=== PATIENT | female | born 1935 | race Two or more races ===

== ENCOUNTER → 2024-05-05 | Outpatient (CLI) | payer MEDICARE, SELFPAY ==
[2024-05-05 21:47] LABS: Absolute Lymphocyte Count 1.67 X10^3/uL (0.83-4.51); Absolute Neutrophil Count 4.1 X10^3/uL (2.0-7.7); Basophil# 0.02 X10^3/uL; Basophil% 0.3 % (0-1); Eosinophils% 1.5 % (0-5); Hematocrit 34.9 % (37-47); Hemoglobin 10.8 g/dL (12.0-15.0); Lymphocyte # 1.67 X10^3/ul (0.83-4.51); Lymphocyte % 25.6 % (19-41); Mean Corp Hgb Conc 30.9 g/dL (32-36); Mean Corpuscular Hgb 26.3 pg (27.0-32.0); Mean Corpuscular Volume 85.1 fL (81-99); Mean Platelet Vol. 12.3 fl (6.2-12.0); Monocyte% 9.2 % (0-10); NRBC Flagged by Analyzer 0 % (0-5); Neutrophil # 4.12 X10^3/uL (2.7-7.7); Neutrophil % 63.2 % (47-70); Platelet Count 205 K/mm3 (150-450); RBC Distribution Width CV 15.5 % (11.6-14.6); RBC Distribution Width SD 47.8 fl (35.1-43.9); White Blood Count 6.5 K/mm3 (4.4-11.0)
[2024-05-05 22:11] LABS: ALB/GLOB Ratio 0.9 RATIO (0.9-2.4); AST(SGOT) 12 U/L (15-37); Alanine Aminotransfer ALT/SGPT 15 U/L (13-56); Albumin, Serum 3.5 g/dL (3.2-5.0); Alkaline Phosphatase 105 U/L (45-117); Anion Gap 9 (5-15); BUN 19 mg/dL (7-18); BUN/Creat Ratio 13.5 RATIO (10-20); Chloride 104 mmol/L (98-107); Cholesterol 113 mg/dL (200); Creatinine, Serum 1.41 mg/dL (0.55-1.02); EST Glomerular Filtration Rate 37 mL/min (>60); Est Glom Filt Rate - Afr Amer 45 mL/min (>60); Globulin 4.1 g/dL (2.2-4.2); Glucose 203 mg/dL (74-106); High Density Lipoprotein 39 mg/dL; Potassium 3.5 mmol/L (3.5-5.1); Protein, Total 7.6 g/dL (6.4-8.2); Sodium Level 138 mmol/L (136-145); Thyroid Stim Hormone (TSH) 2.27 uIU/mL (0.358-3.74); Triglycerides 122 mg/dL; Very Low Density Lipoprotein 24 mg/dL (5-40)
== END | disposition home or self-care (01) ==
PROVIDERS: Visit Provider Nurse Practitioner
DX: E11.59 Type 2 diabetes mellitus with other circulatory complications (principal); I70.209 Unspecified atherosclerosis of native arteries of extremities, unspecified extremity; I10 Essential (primary) hypertension; R13.10 Dysphagia, unspecified
CPT/HCPCS: 80053; 80061; 84443; 85025

== ENCOUNTER → 2024-09-08 | Outpatient (CLI) | payer MEDICARE, SELFPAY ==
[2024-09-08 21:05] LABS: Absolute Lymphocyte Count 2.36 X10^3/uL (0.83-4.51); Absolute Neutrophil Count 6.3 X10^3/uL (2.0-7.7); Basophil# 0.03 X10^3/uL; Basophil% 0.3 % (0-1); Eosinophil# 0.34 X10^3/uL; Eosinophils% 3.4 % (0-5); Hematocrit 38.8 % (37-47); Hemoglobin 11.8 g/dL (12.0-15.0); Lymphocyte # 2.36 X10^3/ul (0.83-4.51); Lymphocyte % 23.8 % (19-41); Mean Corp Hgb Conc 30.4 g/dL (32-36); Mean Corpuscular Hgb 26.6 pg (27.0-32.0); Mean Corpuscular Volume 87.4 fL (81-99); Monocyte% 8.1 % (0-10); NRBC Flagged by Analyzer 0 % (0-5); Neutrophil # 6.34 X10^3/uL (2.7-7.7); Neutrophil % 64.1 % (47-70); Platelet Count 225 K/mm3 (150-450); RBC Distribution Width CV 17.1 % (11.6-14.6); RBC Distribution Width SD 54.2 fl (35.1-43.9); Red Blood Count 4.44 M/mm3 (4.2-5.4); White Blood Count 9.9 K/mm3 (4.4-11.0)
[2024-09-08 21:18] LABS: ALB/GLOB Ratio 0.9 RATIO (0.9-2.4); AST(SGOT) 14 U/L (15-37); Alanine Aminotransfer ALT/SGPT 20 U/L (13-56); Albumin, Serum 3.7 g/dL (3.2-5.0); Alkaline Phosphatase 127 U/L (45-117); Anion Gap 10 (5-15); BUN 24 mg/dL (7-18); Calcium,Total 8.9 mg/dL (8.5-10.1); Chloride 101 mmol/L (98-107); Cholesterol 117 mg/dL (200); Creatinine, Serum 1.09 mg/dL (0.55-1.02); EST Glomerular Filtration Rate 50 mL/min (>60); Est Glom Filt Rate - Afr Amer 61 mL/min (>60); Glucose 140 mg/dL (74-106); High Density Lipoprotein 39 mg/dL; Potassium 4.4 mmol/L (3.5-5.1); Protein, Total 7.7 g/dL (6.4-8.2); Sodium Level 139 mmol/L (136-145); Triglycerides 202 mg/dL; Very Low Density Lipoprotein 40 mg/dL (5-40)
== END | disposition home or self-care (01) ==
PROVIDERS: Referring Provider Nurse Practitioner; Visit Provider Nurse Practitioner
DX: D64.9 Anemia, unspecified (principal); E11.65 Type 2 diabetes mellitus with hyperglycemia; E11.59 Type 2 diabetes mellitus with other circulatory complications; E11.69 Type 2 diabetes mellitus with other specified complication; I70.209 Unspecified atherosclerosis of native arteries of extremities, unspecified extremity; E78.5 Hyperlipidemia, unspecified
CPT/HCPCS: 80053; 80061; 85025

== ENCOUNTER 2025-02-24 10:00 | Outpatient (RCR) | payer MEDICARE, SELFPAY ==
[2025-02-17 08:49] VITALS: BP 123/66; PULSE 89; RESP 18; TEMP 35.9; BMI 23.3
--- NOTE | 2025-02-17 12:10 | PN.PCM_ITS ---
History of Present Illness Date of Service: 02/17/25 Chief Complaint: Follow-up left medial ankle ulcer since September History of Wound: 89-year-old white female that was in the hospital over a month ago and had developed some sores on her legs and not taking care of. Patient has edema of lower extremities and came to us with eschar and slough pain on her lower extremities over the Achilles of the right and left and lateral circumferential wounds. We then referred to the wound center to be seen. Progress of Wound: Patient is diabetic pretty well-controlled but her right heel has an exposed tendon left heel has some open area on her tendon. Lower extremities are open wounds with some slots of slough. The edema and wounds have improved since last seen in the office approximately 2 weeks ago. She does have home health that is helping at least twice a week with dressing changes Subjective Subjective Son is with his mother and he complains that she has a lot of pain and has not olive for pain and Tylenol is not holding her. He also states she does not like to sit with her legs elevated and is very anxious and does not sleep well at night. Objective Data Objective Data Lower extremity wounds are open with slough and some have eschar that was debrided out with sharps and forceps. She tolerated fair we will try Santyl in her wound beds to help loosen up the slough and the eschar to do better coverage we will also order some EpiFix for the exposed Achilles tendon. Patient needs to be checked for urinary tract infection and home health so they would straight catheter for a specimen. Measurements compared to what I saw in the office are much improved and the swelling is much improved with the Isaiah wrap's on the lower legs. We will now switch her over to double layer Tubigrip's that will be easier for the son and the home health care to put on. Vital Signs: Vital Signs Temp Pulse Resp BP 96.6 F L 89 18 123/66 H 02/17/25 08:49 02/17/25 08:49 02/17/25 08:49 02/17/25 08:49 Weight: 140 lb Body Mass Index (BMI) 23.3 Physical Exam Const oriented x3 General Appearance: cooperative Exam Limitations: no limitations HEENT normocephalic Eyes General Eye: normal appearance of both eyes Neck General: normal visual inspection Resp normal respiratory effort Effort and Inspection: able to speak in complete sentences Auscultation: clear to auscultation bilaterally Cardio regular rate and regular rhythm Palpation: normal PMI Rate: regular rate Rhythm: regular rhythm GI Palpation: soft and no hepatosplenomegaly Extremity General Extremity: normal exam except as noted, edema bilateral and other findings Other Details: Swelling lower extremities with open wounds bilaterally Achilles open on the right exposed Neuro oriented x3 Psych Appearance: grossly normal Speech: normal speech Thought Content: normal thought content Judgement: judgement good Debridement Note Debridement Note Wound debrided: Right lower leg cluster Laterality: Right Type of Debridement: Excisional debridement Anesthesia Used: 5% Lidocaine Gel Depth: in the subcutaneous layer Percentage of wound debrided: 100 Instrument Used: 5mm curette Tissue Removed: Slough and some fibrin Severity: Fat Layer Exposed Amount of bleeding with debridement: Mild Bleeding Controlled with: Compression and gauze Patient tolerated procedure: Patient tolerated procedure well Post-Debridement Measurements and Additional Note: Post-Debridement Measurements/Treatment WC - Nurse 1 - General Ulcer Assessment Start: 02/17/25 08:49 Freq: Status: Active Protocol: IZZY Activity Type Activity Date Activity User E-sign Co-sign Detail Recorded Client Recorded Date Recorded By Document 02/17/25 08:49 RB [id number] 02/17/25 09:14 RB Edit Result 02/17/25 08:49 RB (1) [id number] 02/17/25 09:18 RB (1) Right - Posterior Tibial Palpable => No - Dorsalis Pedis Palpable => No - Extremity Color => Pale - Hair Growth on Legs => No - Hair Growth on Toes => No - Temperature of Extremity => Cool - Capillary Refill => Greater than 3 => Seconds - Dependent Rubor => No - Blanched when Elevated => No - Lipodermatosclerosis => No - Other Deformity => No - Prior Foot Ulcer => No - Charcot Joint => No - Prior Amputation => No - Thick => Yes - Discolored => Yes - Deformed => No - Improper Length & Hygeine => No Left - Posterior Tibial Palpable => No - Dorsalis Pedis Palpable => No - Extremity Color => Pale - Hair Growth on Legs => No - Hair Growth on Toes => No - Temperature of Extremity => Cool - Capillary Refill => Greater than 3 => Seconds - Dependent Rubor => No - Blanched when Elevated => No - Lipodermatosclerosis => No - Other Deformity => No - Prior Foot Ulcer => No - Charcot Joint => No - Prior Amputation => No - Thick => Yes - Discolored => Yes - Deformed => No - Improper Length & Hygeine => No Feet - Top Side and Bottom => <Entered> (a) Preferred language => Sammarinese Asset Specialist Required => No Able to Read => Yes Able to Write => Yes Communication Tools => None Caregiver Communication Skills => No Impairment Impairment Right Hearing Abillity => Hard of Hearing Left Hearing Abillity => Hard of Hearing Visual Assistive Devices => Glasses Preferences => Verbal,Written, => Demonstration Barriers to Learning => None Readiness To Learn => Poor Willingness to Engage in Self Management => Low Activies Readiness to Engage in Self Management => Low Activities Anxiety Level => Calm Cooperation => Uncooperative Perception => Confused Interest in Health Problem => Uninterested Education Importance => Denies Need Does Patient Smoke tobacco or other => No substances Smoking Status => Never smoker Is Patient Diabetic => Yes Recent Decline in Ability to Perform => Ambulation,Bathing => ,Lower Body => Dressing,Toileting => ,Transferring, => Upper Body => Dressing Assistive Device With Patient => Yes Cultural/Episcopalian Needs that may affect => No Treatment Plan Would you allow our hospital motor vehicle escort driver to => No meet you for the purpose of spiritual/ emotional support? Aircraft Electrical Systems Specialist to contact place of anabaptist => No *Welcome to the Wound Center - Person Taught => Patient,Family - Teaching Method => Discussion - Response to teaching => Verbalize => Understanding 02/17/25 08:49 - Today's Visit Information Type of service Initial Visit Arrival Mode Wheelchair Transfer Assistance Manual Patient Identification Verified (Name & Yes ) Patient Requires Transmission-Based No Precautions Height and Weight Height 5 ft 5 in Weight 140 lb Weight in Pounds 140.0 lbs Body Mass Index (BMI) 23.3 BMI Classification Normal Vital Signs Temperature (97.8 F-99.1 F) 96.6 F L Temperature Source Temporal Pulse Rate (60-100) 89 Pulse Location Monitor Respiratory Rate (12-18) 18 Respiratory rate source Observation Blood Pressure (90/60-120/80) 123/66 H Blood Pressure Mean (mm Hg) 85 Source Monitor Position Semi-Fowlers Blood Pressure Location Left Arm History Since Last Visit- (Skip if this is Patient's initial visit) Left Footwear No Footwear Right Footwear No Footwear Pain Scale: 0-10 Numeric Is Patient Pain Free? No BLE -Description Aching -Intensity 6 -Duration (hours) Acute -Pain Behavior Withdrawal from Touch -Pain Aggravating Factors Changing Position -Alleviating Factors/Interventions Medication -Effectiveness of Alleviating Factor/ Moderately Intervention effective Lower Extremity Assessment/ Foot Assessment/ Toe Nail Assessment Right -Posterior Tibial Palpable No -Dorsalis Pedis Palpable No -Extremity Color Pale -Hair Growth on Legs No -Hair Growth on Toes No -Temperature of Extremity Cool -Capillary Refill Greater than 3 Seconds -Dependent Rubor No -Blanched when Elevated No -Lipodermatosclerosis No -Other Deformity No -Prior Foot Ulcer No -Charcot Joint No -Prior Amputation No -Thick Yes -Discolored Yes -Deformed No -Improper Length & Hygeine No Left -Posterior Tibial Palpable No -Dorsalis Pedis Palpable No -Extremity Color Pale -Hair Growth on Legs No -Hair Growth on Toes No -Temperature of Extremity Cool -Capillary Refill Greater than 3 Seconds -Dependent Rubor No -Blanched when Elevated No -Lipodermatosclerosis No -Other Deformity No -Prior Foot Ulcer No -Charcot Joint No -Prior Amputation No -Thick Yes -Discolored Yes -Deformed No -Improper Length & Hygeine No Neuropathy Assessment Feet - Top Side and Bottom <Entered> (a) Communication Assessment Preferred language Sammarinese Asset Specialist Required No Able to Read Yes Able to Write Yes Communication Tools None Caregiver Communication Skills No Impairment Impairment Right Hearing Abillity Hard of Hearing Left Hearing Abillity Hard of Hearing Visual Assistive Devices Glasses Teaching Assessment Preferences Verbal,Written, Demonstration Barriers to Learning None Readiness To Learn Poor Willingness to Engage in Self Management Low Activies Readiness to Engage in Self Management Low Activities Anxiety Level Calm Cooperation Uncooperative Perception Confused Interest in Health Problem Uninterested Education Importance Denies Need Does Patient Smoke tobacco or other No substances Smoking Status Never smoker Is Patient Diabetic Yes Functional Assessment Recent Decline in Ability to Perform Ambulation, Bathing,Lower Body Dressing, Toileting, Transferring, Upper Body Dressing Assistive Device With Patient Yes Culture/Episcopalian/Aircraft Electrical Systems Specialist Cultural/Episcopalian Needs that may affect No Treatment Plan Would you allow our hospital motor vehicle escort driver to No meet you for the purpose of spiritual/ emotional support? Aircraft Electrical Systems Specialist to contact place of anabaptist No Teaching: Wound Center *Welcome to the Wound Center -Person Taught Patient,Family -Teaching Method Discussion -Response to teaching Verbalize Understanding (a) 1 - + throughout WC - Nurse 1 - General Ulcer Measurement Start: 02/17/25 08:49 Freq: Status: Active Protocol: Activity Type Activity Date Activity User E-sign Co-sign Detail Recorded Client Recorded Date Recorded By Document 02/17/25 08:49 RB [id number] 02/17/25 09:14 RB 02/17/25 08:49 Wound Center Nurse 1 7. L anterior ankle -Combined with other wound No -Current Size (cm) - Length 1.5 -Current Size (cm) - Width 1.7 -Current Size (cm) - Depth 0.2 -Total Square Cm 2.55 -Photo Taken Yes -Tunneling No -Undermining/Tunneling No -Circular Undermining No -Exudate Amt Large -Exudate Type Serosanguineous -Wound Margin Distinct, Outline Attached -Granulation Amt Medium (34-66%) -Granulation Quality [place] -Slough/Fibrin Yes -Necrosis Amt Medium (34-66%) -Necrotic Tissue Type Adherent Slough -Structure Exposed N/A -Texture (Nuvia-wound Skin Appearance) Assessed -Moisture (Nuvia-wound Skin Appearance) Assessed, Maceration, Weeping -Color (Nuvia-wound Skin Appearance) Assessed -Temperature (Nuvia-wound Skin No Abnormality Appearance) (Pt Warm) -Tenderness on Palpation (Nuvia-wound No Skin Appearance) -Ulcer Cleansing Wound Cleanser -Foul Odor after Cleansing No -Anesthetic Used 4% Lidocaine Solution 6. L achilles CLUSTER -Combined with other wound No -Current Size (cm) - Length 0.7 -Current Size (cm) - Width 2.5 -Current Size (cm) - Depth 0.2 -Total Square Cm 1.75 -Photo Taken Yes -Tunneling No -Undermining/Tunneling No -Circular Undermining No -Exudate Amt Large -Exudate Type Serosanguineous -Wound Margin Distinct, Outline Attached -Granulation Amt Medium (34-66%) -Granulation Quality [place] -Slough/Fibrin Yes -Necrosis Amt Medium (34-66%) -Necrotic Tissue Type Adherent Slough -Structure Exposed N/A -Texture (Nuvia-wound Skin Appearance) Assessed -Moisture (Nuvia-wound Skin Appearance) Maceration, Weeping -Color (Nuvia-wound Skin Appearance) Assessed -Temperature (Nuvia-wound Skin No Abnormality Appearance) (Pt Warm) -Tenderness on Palpation (Nuvia-wound No Skin Appearance) -Ulcer Cleansing Wound Cleanser -Foul Odor after Cleansing No -Anesthetic Used 4% Lidocaine Solution 5. L dorsal foot -Combined with other wound No -Current Size (cm) - Length 2 -Current Size (cm) - Width 1.7 -Current Size (cm) - Depth 0.1 -Total Square Cm 3.4 -Photo Taken Yes -Tunneling No -Undermining/Tunneling No -Circular Undermining No -Exudate Amt Large -Exudate Type Serosanguineous -Wound Margin Distinct, Outline Attached -Granulation Amt Medium (34-66%) -Granulation Quality [place] -Slough/Fibrin Yes -Necrosis Amt Medium (34-66%) -Necrotic Tissue Type Adherent Slough -Structure Exposed N/A -Texture (Nuvia-wound Skin Appearance) Assessed -Moisture (Nuvia-wound Skin Appearance) Maceration, Weeping -Color (Nuvia-wound Skin Appearance) Assessed -Temperature (Nuvia-wound Skin No Abnormality Appearance) (Pt Warm) -Tenderness on Palpation (Nuvia-wound No Skin Appearance) -Ulcer Cleansing Wound Cleanser -Foul Odor after Cleansing No -Anesthetic Used 5% Lidocaine Gel 4. R LAT LE CLUSTER -Combined with other wound No -Current Size (cm) - Length 1.3 -Current Size (cm) - Width 1.2 -Current Size (cm) - Depth 0.1 -Total Square Cm 1.56 -Photo Taken Yes -Tunneling No -Undermining/Tunneling No -Circular Undermining No -Exudate Amt Large -Exudate Type Serosanguineous -Wound Margin Distinct, Outline Attached -Granulation Amt Medium (34-66%) -Granulation Quality [place] -Slough/Fibrin Yes -Necrosis Amt Medium (34-66%) -Necrotic Tissue Type Adherent Slough -Structure Exposed N/A -Texture (Nuvia-wound Skin Appearance) Assessed -Moisture (Nuvia-wound Skin Appearance) Maceration, Weeping -Color (Nuvia-wound Skin Appearance) Assessed -Temperature (Nuvia-wound Skin No Abnormality Appearance) (Pt Warm) -Tenderness on Palpation (Nuvia-wound No Skin Appearance) -Ulcer Cleansing Wound Cleanser -Foul Odor after Cleansing No -Anesthetic Used 4% Lidocaine Solution *3.RLE MEDIAL cluster -Combined with other wound No -Current Size (cm) - Length 9.5 -Current Size (cm) - Width 20.3 -Current Size (cm) - Depth 0.2 -Total Square Cm 192.85 -Photo Taken Yes -Tunneling No -Undermining/Tunneling No -Circular Undermining No -Exudate Amt Large -Exudate Type Serosanguineous -Wound Margin Distinct, Outline Attached -Granulation Amt Medium (34-66%) -Granulation Quality [place] -Slough/Fibrin Yes -Necrosis Amt Medium (34-66%) -Necrotic Tissue Type Adherent Slough -Structure Exposed N/A -Texture (Nuvia-wound Skin Appearance) Assessed -Moisture (Nuvia-wound Skin Appearance) Assessed, Maceration, Weeping -Color (Nuvia-wound Skin Appearance) Assessed -Temperature (Nuvia-wound Skin No Abnormality Appearance) (Pt Warm) -Tenderness on Palpation (Nuvia-wound No Skin Appearance) -Ulcer Cleansing Wound Cleanser -Foul Odor after Cleansing No -Anesthetic Used 4% Lidocaine Solution 2. R dorsal foot -Combined with other wound No -Current Size (cm) - Length 2.4 -Current Size (cm) - Width 1 -Current Size (cm) - Depth 0.2 -Total Square Cm 2.4 -Photo Taken Yes -Tunneling No -Undermining/Tunneling No -Circular Undermining No -Exudate Amt Large -Exudate Type Serosanguineous -Wound Margin Distinct, Outline Attached -Granulation Amt Medium (34-66%) -Granulation Quality [place] -Slough/Fibrin Yes -Necrosis Amt Medium (34-66%) -Necrotic Tissue Type Adherent Slough -Structure Exposed N/A -Texture (Nuvia-wound Skin Appearance) Assessed -Moisture (Nuvia-wound Skin Appearance) Assessed, Maceration, Weeping -Color (Nuvia-wound Skin Appearance) Assessed -Temperature (Nuvia-wound Skin No Abnormality Appearance) (Pt Warm) -Tenderness on Palpation (Nuvia-wound No Skin Appearance) -Ulcer Cleansing Wound Cleanser -Foul Odor after Cleansing No -Anesthetic Used 4% Lidocaine Solution Lower Limb Edema Present Yes Right Calf (cm) 38 Right Ankle (cm) 21.4 Left Calf (cm) 40.2 Left Ankle (cm) 21.5 - Nurse 2 - General Ulcer CM Notes Start: 02/17/25 08:49 Freq: Status: Active Protocol: Activity Type Activity Date Activity User E-sign Co-sign Detail Recorded Client Recorded Date Recorded By Document 02/17/25 09:30 [facility] [id number] 02/17/25 10:21 [facility] 02/17/25 09:30 Wound Center Nurse 2 #9- L ACHILLES CLUSTER -Time 09:50 -Correct Patient Yes -Correct Side, Site, Position Yes -Correct Procedure Yes -Procedure Performed Yes -Type of Procedure Debridement -Clinical Debridement Subcutaneous -Tissue Removed Subcutaneous -Post Debridement (cm) - Length 1.5 -Post Debridement (cm) - Width 4.5 -Post Debridement (cm) - Depth 0.1 -Total Square (Post) (cm) 6.75 -Area of Debridement (cm) - Length 1.5 -Area of Debridement (cm) - Width 4.5 -Total Square (Area) (cm) 6.75 -Tunneling No -Undermining/Tunneling No -Circular Undermining No -Wound/Ulcer Outcome Not Healed -Ulcer Cleansing Rinsed/ Irrigated with Saline -Foul Odor after Cleansing No -Bioengineered Tissue No -Bleeding Controlled with Pressure -Treatment Response Procedure Tolerated Well -Debridement - Subq, 1st 20sq cm Yes -Debridement, SubQ, ea addt'l 20sq cm 2 or part thereof #8- R LAT CALF -Time 09:49 -Correct Patient Yes -Correct Side, Site, Position Yes -Correct Procedure Yes -Procedure Performed Yes -Type of Procedure Debridement -Clinical Debridement Subcutaneous -Tissue Removed Subcutaneous -Post Debridement (cm) - Length 1.5 -Post Debridement (cm) - Width 1.3 -Post Debridement (cm) - Depth 0.2 -Total Square (Post) (cm) 1.95 -Area of Debridement (cm) - Length 1.5 -Area of Debridement (cm) - Width 1.3 -Total Square (Area) (cm) 1.95 -Tunneling No -Undermining/Tunneling No -Circular Undermining No -Wound/Ulcer Outcome Not Healed -Ulcer Cleansing Rinsed/ Irrigated with Saline -Foul Odor after Cleansing No -Bioengineered Tissue No -Bleeding Controlled with Pressure -Debridement - Subq, 1st 20sq cm No #5- R HERZOG -Time 09:44 -Correct Patient Yes -Correct Side, Site, Position Yes -Correct Procedure Yes -Procedure Performed Yes -Type of Procedure Debridement -Clinical Debridement Subcutaneous -Tissue Removed Subcutaneous -Post Debridement (cm) - Length 6.2 -Post Debridement (cm) - Width 1.5 -Post Debridement (cm) - Depth 0.2 -Total Square (Post) (cm) 9.30 -Area of Debridement (cm) - Length 6.2 -Area of Debridement (cm) - Width 1.5 -Total Square (Area) (cm) 9.30 -Tunneling No -Undermining/Tunneling No -Circular Undermining No -Wound/Ulcer Outcome Not Healed -Ulcer Cleansing Rinsed/ Irrigated with Saline -Foul Odor after Cleansing No -Bioengineered Tissue No -Bleeding Controlled with Pressure -Treatment Response Procedure Tolerated Well -Debridement - Subq, 20sq cm No 7. L anterior ankle -Time 09:38 -Correct Patient Yes -Correct Side, Site, Position Yes -Correct Procedure Yes -Procedure Performed Yes -Type of Procedure Debridement -Clinical Debridement Subcutaneous -Tissue Removed Subcutaneous -Post Debridement (cm) - Length 1.7 -Post Debridement (cm) - Width 1.5 -Post Debridement (cm) - Depth 0.2 -Total Square (Post) (cm) 2.55 -Area of Debridement (cm) - Length 1.7 -Area of Debridement (cm) - Width 1.5 -Total Square (Area) (cm) 2.55 -Tunneling No -Undermining/Tunneling No -Circular Undermining No -Wound/Ulcer Outcome Not Healed -Ulcer Cleansing Rinsed/ Irrigated with Saline -Foul Odor after Cleansing No -Bioengineered Tissue No -Bleeding Controlled with Pressure -Treatment Response Procedure Tolerated Well -Debridement - Subq, 1st 20sq cm No 6. L achilles CLUSTER -Time 09:38 -Correct Patient Yes -Correct Side, Site, Position Yes -Correct Procedure Yes -Procedure Performed Yes -Type of Procedure Debridement -Clinical Debridement Muscle / Fascia -Tissue Removed Muscle,Fascia -Post Debridement (cm) - Length 4.5 -Post Debridement (cm) - Width 4 -Post Debridement (cm) - Depth 0.4 -Total Square (Post) (cm) 18.0 -Area of Debridement (cm) - Length 4.5 -Area of Debridement (cm) - Width 4 -Total Square (Area) (cm) 18.0 -Tunneling No -Undermining/Tunneling No -Circular Undermining No -Wound/Ulcer Outcome Not Healed -Ulcer Cleansing Rinsed/ Irrigated with Saline -Foul Odor after Cleansing No -Bioengineered Tissue No -Bleeding Controlled with Pressure -Treatment Response Procedure Tolerated Well -Debridement - Muscle / Fascia, 1st Yes 20sq cm 5. L dorsal foot -Time 09:46 -Correct Patient Yes -Correct Side, Site, Position Yes -Correct Procedure Yes -Procedure Performed Yes -Type of Procedure Debridement -Clinical Debridement Subcutaneous -Tissue Removed Subcutaneous -Post Debridement (cm) - Length 2 -Post Debridement (cm) - Width 2.5 -Post Debridement (cm) - Depth 0.1 -Total Square (Post) (cm) 5.0 -Area of Debridement (cm) - Length 2 -Area of Debridement (cm) - Width 2.5 -Total Square (Area) (cm) 5.0 -Tunneling No -Undermining/Tunneling No -Circular Undermining No -Wound/Ulcer Outcome Not Healed -Ulcer Cleansing Rinsed/ Irrigated with Saline -Foul Odor after Cleansing No -Bioengineered Tissue No -Bleeding Controlled with Pressure -Treatment Response Procedure Tolerated Well -Debridement - Subq, 1st 20sq cm No 4. R LAT LE CLUSTER -Time 09:48 -Correct Patient Yes -Correct Side, Site, Position Yes -Correct Procedure Yes -Procedure Performed Yes -Type of Procedure Debridement -Clinical Debridement Subcutaneous -Tissue Removed Subcutaneous -Post Debridement (cm) - Length 5.3 -Post Debridement (cm) - Width 2 -Post Debridement (cm) - Depth 0.3 -Total Square (Post) (cm) 10.6 -Area of Debridement (cm) - Length 5.3 -Area of Debridement (cm) - Width 2 -Total Square (Area) (cm) 10.6 -Tunneling No -Undermining/Tunneling No -Circular Undermining No -Wound/Ulcer Outcome Not Healed -Ulcer Cleansing Rinsed/ Irrigated with Saline -Foul Odor after Cleansing No -Bioengineered Tissue No -Bleeding Controlled with Pressure -Treatment Response Procedure Tolerated Well -Debridement - Subq, 1st 20sq cm No *3.RLE MEDIAL cluster -Time 09:35 -Correct Patient Yes -Correct Side, Site, Position Yes -Correct Procedure Yes -Procedure Performed Yes -Type of Procedure Debridement -Clinical Debridement Subcutaneous -Tissue Removed Subcutaneous -Post Debridement (cm) - Length 6.3 -Post Debridement (cm) - Width 4 -Post Debridement (cm) - Depth 0.3 -Total Square (Post) (cm) 25.2 -Area of Debridement (cm) - Length 6.3 -Area of Debridement (cm) - Width 4 -Total Square (Area) (cm) 25.2 -Tunneling No -Undermining/Tunneling No -Circular Undermining No -Wound/Ulcer Outcome Not Healed -Ulcer Cleansing Rinsed/ Irrigated with Saline -Foul Odor after Cleansing No -Bioengineered Tissue No -Bleeding Controlled with Pressure -Treatment Response Procedure Tolerated Well -Debridement - Subq, 20sq cm No 2. R dorsal foot -Time 09:39 -Correct Patient Yes -Correct Side, Site, Position Yes -Correct Procedure Yes -Procedure Performed Yes -Type of Procedure Debridement -Clinical Debridement Subcutaneous -Tissue Removed Subcutaneous -Post Debridement (cm) - Length 2.5 -Post Debridement (cm) - Width 1 -Post Debridement (cm) - Depth 0.3 -Total Square (Post) (cm) 2.5 -Area of Debridement (cm) - Length 2.5 -Area of Debridement (cm) - Width 1 -Total Square (Area) (cm) 2.5 -Tunneling No -Undermining/Tunneling No -Circular Undermining No -Wound/Ulcer Outcome Not Healed -Ulcer Cleansing Rinsed/ Irrigated with Saline -Foul Odor after Cleansing No -Bioengineered Tissue No -Bleeding Controlled with Pressure -Treatment Response Procedure Tolerated Well -Debridement - Subq, 1st 20sq cm No Pain Scale: 0-10 Numeric Is Patient Pain Free? Yes WC - Nurse 3 - General Ulcer D/C NN Start: 02/17/25 08:49 Freq: Status: Active Protocol: Activity Type Activity Date Activity User E-sign Co-sign Detail Recorded Client Recorded Date Recorded By Document 02/17/25 10:22 RB [id number] 02/17/25 10:26 RB 02/17/25 10:22 Wound Care Center Nurse 3 #9- L ACHILLES CLUSTER -Ulcer Cleansing Rinsed/ Irrigated with Saline -Primary Dressing Applied Aquacel AG 4x4 -Primary Dressing Covered/Secured with Dry Gauze & Roll Gauze, Secured with Tape -Aquacel AG 4x4 2 #8- R LAT CALF -Other Dressing AQUACEL AG -Primary Dressing Covered/Secured with Dry Gauze & Roll Gauze, Secured with Tape #5- R HERZOG -Other Dressing AQUACEL AG -Primary Dressing Covered/Secured with Dry Gauze & Roll Gauze, Secured with Tape 7. L anterior ankle -Other Dressing AQUACEL AG -Primary Dressing Covered/Secured with Dry Gauze & Roll Gauze, Secured with Tape 6. L achilles CLUSTER -Other Dressing AQUACEL AG 5. L dorsal foot -Other Dressing AQUACEL AG 4. R LAT LE CLUSTER -Other Dressing AQUACEL AG *3.RLE MEDIAL cluster -Other Dressing AQUACEL AG 2. R dorsal foot -Other Dressing AQUACEL AG -Primary Dressing Covered/Secured with Dry Gauze & Roll Gauze, Secured with Tape BLE -Tubular Bandage Double Layer -Size of Tubigrip Used Size E -Size E ($) 4 Treatment Response Procedure Tolerated Well Pain Scale: 0-10 Numeric Is Patient Pain Free? No BLE -Description Aching -Intensity 6 -Duration (hours) Chronic -Pain Behavior Withdrawal from Touch -Pain Aggravating Factors Exercise/ Activity -Alleviating Factors/Interventions Medication -Effectiveness of Alleviating Factor/ Minimally Intervention effective WC - Visit Discharge Discharge Condition Stable Ambulatory Status Wheelchair Transportation Private Auto Accompanied by SON Medication Reconcilliation completed & No provided to patient/care provider Clinical Summary of Care Provided Yes Additional Wound Wound debrided: Right herzog cluster Laterality: Right Type of Debridement: Excisional debridement Anesthesia Used: 5% Lidocaine Gel Depth: Down to and including healthy tissue Percentage of wound debrided: 100 Instrument Used: 5mm curette Tissue Removed: Slough Severity: Fat Layer Exposed Amount of bleeding with debridement: Mild Bleeding Controlled with: Compression and gauze Patient tolerated procedure: Patient tolerated procedure well Additional Wound Wound debrided: Right right heel Laterality: Right Type of Debridement: Excisional debridement Anesthesia Used: 5% Lidocaine Gel Depth: to bone Percentage of wound debrided: 100 Instrument Used: 5mm curette and #15 blade Tissue Removed: Eschar and slough Severity: Fat Layer Exposed (Tendon exposed) Amount of bleeding with debridement: None Bleeding Controlled with: Compression and gauze Patient tolerated procedure: Patient tolerated procedure well Additional Wound Wound debrided: Right posterior cluster lower extremity Type of Debridement: Excisional debridement Anesthesia Used: 5% Lidocaine Gel Depth: Down to and including healthy tissue and in the subcutaneous layer Instrument Used: 5mm curette Tissue Removed: Slough Severity: Fat Layer Exposed Amount of bleeding with debridement: Mild Bleeding Controlled with: Compression and gauze Patient tolerated procedure: Patient tolerated procedure well Additional Wound Wound debrided: Left anterior foot Type of Debridement: Excisional debridement Anesthesia Used: 5% Lidocaine Gel Depth: in the subcutaneous layer Percentage of wound debrided: 100 Instrument Used: 5mm curette Tissue Removed: Slough Severity: Fat Layer Exposed Amount of bleeding with debridement: Mild Bleeding Controlled with: Compression and gauze Patient tolerated procedure: Patient tolerated procedure well Additional Wound Wound debrided: Left herzog cluster Laterality: Left Type of Debridement: Excisional debridement Anesthesia Used: 5% Lidocaine Gel Depth: Down to and including healthy tissue Percentage of wound debrided: 100 Instrument Used: 5mm curette Tissue Removed: Slough Severity: Fat Layer Exposed Amount of bleeding with debridement: Mild Bleeding Controlled with: Compression and gauze Patient tolerated procedure: Patient tolerated procedure well Additional Wound Wound debrided: Left posterior leg cluster Laterality: Left Type of Debridement: Excisional debridement Anesthesia Used: 5% Lidocaine Gel Depth: in the subcutaneous layer Percentage of wound debrided: 100 Instrument Used: 5mm curette, #15 blade and Forceps Tissue Removed: Slough and some eschar Severity: Fat Layer Exposed Amount of bleeding with debridement: Mild Bleeding Controlled with: Compression and gauze Patient tolerated procedure: Patient tolerated procedure well Additional Wound Wound debrided: Left ankle posterior ulcer Type of Debridement: Excisional debridement Anesthesia Used: 5% Lidocaine Gel Depth: in the subcutaneous layer Percentage of wound debrided: 100 Instrument Used: 5mm curette and Forceps Tissue Removed: Eschar and slough Severity: Fat Layer Exposed Amount of bleeding with debridement: Mild Bleeding Controlled with: Compression and gauze Patient tolerated procedure: Patient tolerated procedure well Assessment/Plan Assessment/Plan (1) 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: CODE(S): L97.902 - 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 QUALIFIERS: Laterality: unspecified laterality Qualified Code(s): L97.902 - 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 This is to be done every day Follow-up in 1 week
--- NOTE | 2025-02-18 08:27 | WC ---
PHOTO 02/17/25 KAY OGEDN
--- NOTE | 2025-02-18 08:30 | WC ---
PHOTO 02/17/25
--- NOTE | 2025-02-18 08:34 | WC ---
PHOTO 02/17/25 KAY OGDEN
--- NOTE | 2025-02-18 08:37 | WC ---
PHOTO 02/17/25 RIGHT DORSAL FOOT
--- NOTE | 2025-02-18 08:44 | WC ---
PHOTO 02/17/25 RIGHT LATERAL SUP
--- NOTE | 2025-02-18 08:47 | WC ---
PHOTO 02/17/25 LEFT ANT ANKLE
[2025-02-24 10:12] VITALS: BP 142/82; PULSE 97; RESP 18; TEMP 36.6; BMI 23.3
--- NOTE | 2025-02-24 11:14 | WC ---
squad called d/t to lethargic. son present in room. legs wrapped with abd and kerlix taped in place.
--- NOTE | 2025-02-24 12:06 | PCM.WC.PN ---
History of Present Illness Date of Service: 02/24/25 Chief Complaint: Follow-up left medial ankle ulcer since September History of Wound: 89-year-old white female that was in the hospital over a month ago and had developed some sores on her legs and not taking care of. Patient has edema of lower extremities and came to us with eschar and slough pain on her lower extremities over the Achilles of the right and left and lateral circumferential wounds. We then referred to the wound center to be seen. Progress of Wound: Son states that she has not walked for the last 2 days and has not eaten or drink very well in the last 2 days. Patient is more lethargic and out of it than usual. Her wounds have worsened she has an odor about them and her left Achilles is totally exposed and does not look good. They were unable to afford the wound care product that I ordered and we just found out that today. We did have Dr. Connor come in and look at her Achilles and he agreed that she needs to be admitted to the hospital debrided surgically and then get that Achilles tendon covered. Subjective Subjective Patient of course was not hearing well and did not understand but did not want to be admitted her son was agreeable to the plan. Objective Data Objective Data As stated above bilateral lower legs have worsened with edema, wounds are worse. There is an odor to the wounds the right Achilles has slough and she is exposed on the tendons. Patient is in excruciating pain and winces without even touching her with pain. Son states he did give her tramadol but does not even touch her. Vital Signs: Vital Signs Temp Pulse Resp BP O2 Del Method 97.9 F 97 18 142/82 H Room Air 02/24/25 10:12 02/24/25 10:12 02/24/25 10:12 02/24/25 10:12 02/24/25 10:12 Oxygen Delivery Method Room Air Weight: 140 lb Body Mass Index (BMI) 23.3 Physical Exam Const oriented x3 General Appearance: cooperative Exam Limitations: no limitations HEENT normocephalic Eyes General Eye: normal appearance of both eyes Neck General: normal visual inspection Resp normal respiratory effort Effort and Inspection: able to speak in complete sentences Auscultation: clear to auscultation bilaterally Cardio regular rate and regular rhythm Palpation: normal PMI Rate: regular rate Rhythm: regular rhythm GI Palpation: soft and no hepatosplenomegaly Extremity General Extremity: normal exam except as noted, edema bilateral and other findings Other Details: Swelling lower extremities with open wounds bilaterally Achilles open on the right exposed Neuro oriented x3 Psych Appearance: grossly normal Speech: normal speech Thought Content: normal thought content Judgement: judgement good Debridement Note Debridement Note No debridement was completed: No debridement was completed today Post-Debridement Measurements and Additional Note: Post-Debridement Measurements/Treatment WC - Nurse 1 - General Ulcer Assessment Start: 02/17/25 08:49 Freq: Status: Active Protocol: IZZY Activity Type Activity Date Activity User E-sign Co-sign Detail Recorded Client Recorded Date Recorded By Document 02/17/25 08:49 RB [id number] 02/17/25 09:14 RB Edit Result 02/17/25 08:49 RB (1) [id number] 02/17/25 09:18 RB Document 02/24/25 10:12 DS [id number] 02/24/25 10:16 DS (1) Right - Posterior Tibial Palpable => No - Dorsalis Pedis Palpable => No - Extremity Color => Pale - Hair Growth on Legs => No - Hair Growth on Toes => No - Temperature of Extremity => Cool - Capillary Refill => Greater than 3 => Seconds - Dependent Rubor => No - Blanched when Elevated => No - Lipodermatosclerosis => No - Other Deformity => No - Prior Foot Ulcer => No - Charcot Joint => No - Prior Amputation => No - Thick => Yes - Discolored => Yes - Deformed => No - Improper Length & Hygeine => No Left - Posterior Tibial Palpable => No - Dorsalis Pedis Palpable => No - Extremity Color => Pale - Hair Growth on Legs => No - Hair Growth on Toes => No - Temperature of Extremity => Cool - Capillary Refill => Greater than 3 => Seconds - Dependent Rubor => No - Blanched when Elevated => No - Lipodermatosclerosis => No - Other Deformity => No - Prior Foot Ulcer => No - Charcot Joint => No - Prior Amputation => No - Thick => Yes - Discolored => Yes - Deformed => No - Improper Length & Hygeine => No Feet - Top Side and Bottom => <Entered> (a) Preferred language => [place] Bumper And Painter Required => No Able to Read => Yes Able to Write => Yes Communication Tools => None Caregiver Communication Skills => No Impairment Impairment Right Hearing Abillity => Hard of Hearing Left Hearing Abillity => Hard of Hearing Visual Assistive Devices => Glasses Preferences => Verbal,Written, => Demonstration Barriers to Learning => None Readiness To Learn => Poor Willingness to Engage in Self Management => Low Activies Readiness to Engage in Self Management => Low Activities Anxiety Level => Calm Cooperation => Uncooperative Perception => Confused Interest in Health Problem => Uninterested Education Importance => Denies Need Does Patient Smoke tobacco or other => No substances Smoking Status => Never smoker Is Patient Diabetic => Yes Recent Decline in Ability to Perform => Ambulation,Bathing => ,Lower Body => Dressing,Toileting => ,Transferring, => Upper Body => Dressing Assistive Device With Patient => Yes Cultural/Mandaen Needs that may affect => No Treatment Plan Would you allow our hospital die attaching machine tender to => No meet you for the purpose of spiritual/ emotional support? Vocational Technical Education Teacher to contact place of jew => No *Welcome to the Wound Center - Person Taught => Patient,Family - Teaching Method => Discussion - Response to teaching => Verbalize => Understanding 02/17/25 02/24/25 08:49 10:12 - Today's Visit Information Type of service Initial Visit Follow-up Visit (Physician/CODING AUDITOR ) Arrival Mode Wheelchair Wheelchair Transfer Assistance Manual Patient Identification Verified (Name & Yes ) Patient Requires Transmission-Based No Precautions Height and Weight Height 5 ft 5 in Weight 140 lb Weight in Pounds 140.0 lbs Body Mass Index (BMI) 23.3 23.3 BMI Classification Normal Normal Vital Signs Temperature (97.8 F-99.1 F) 96.6 F L 97.9 F Temperature Source Temporal Temporal Pulse Rate (60-100) 89 97 Pulse Location Monitor Monitor Respiratory Rate (12-18) 18 18 Respiratory rate source Observation Observation Oxygen Delivery Method Room Air Blood Pressure (90/60-120/80) 123/66 H 142/82 H Blood Pressure Mean (mm Hg) 85 102 Source Monitor Monitor Position Semi-Fowlers Sitting Blood Pressure Location Left Arm Left Arm History Since Last Visit- (Skip if this is Patient's initial visit) Have you changed medications since your No last visit? Any new allergies or adverse reactions No Had a fall/change in ADL's that may No increase risk of falls Signs or symptoms of abuse and/or No neglect since last visit Have you been in the hospital since your No last visit? Has dressing in place as prescribed Yes Has compression in place as prescribed Yes Has offloadiing in place as prescribed N/A Experienced any changes in pain level or No management Left Footwear No Footwear No Footwear Right Footwear No Footwear No Footwear Pain Scale: 0-10 Numeric Is Patient Pain Free? No Yes BLE -Description Aching -Intensity 6 -Duration (hours) Acute -Pain Behavior Withdrawal from Touch -Pain Aggravating Factors Changing Position -Alleviating Factors/Interventions Medication -Effectiveness of Alleviating Factor/ Moderately Intervention effective Lower Extremity Assessment/ Foot Assessment/ Toe Nail Assessment Right -Posterior Tibial Palpable No -Dorsalis Pedis Palpable No -Extremity Color Pale -Hair Growth on Legs No -Hair Growth on Toes No -Temperature of Extremity Cool -Capillary Refill Greater than 3 Seconds -Dependent Rubor No -Blanched when Elevated No -Lipodermatosclerosis No -Other Deformity No -Prior Foot Ulcer No -Charcot Joint No -Prior Amputation No -Thick Yes -Discolored Yes -Deformed No -Improper Length & Hygeine No Left -Posterior Tibial Palpable No -Dorsalis Pedis Palpable No -Extremity Color Pale -Hair Growth on Legs No -Hair Growth on Toes No -Temperature of Extremity Cool -Capillary Refill Greater than 3 Seconds -Dependent Rubor No -Blanched when Elevated No -Lipodermatosclerosis No -Other Deformity No -Prior Foot Ulcer No -Charcot Joint No -Prior Amputation No -Thick Yes -Discolored Yes -Deformed No -Improper Length & Hygeine No Neuropathy Assessment Feet - Top Side and Bottom <Entered> (a) Communication Assessment Preferred language [place] Bumper And Painter Required No Able to Read Yes Able to Write Yes Communication Tools None Caregiver Communication Skills No Impairment Impairment Right Hearing Abillity Hard of Hearing Left Hearing Abillity Hard of Hearing Visual Assistive Devices Glasses Teaching Assessment Preferences Verbal,Written, Demonstration Barriers to Learning None Readiness To Learn Poor Willingness to Engage in Self Management Low Activies Readiness to Engage in Self Management Low Activities Anxiety Level Calm Cooperation Uncooperative Perception Confused Interest in Health Problem Uninterested Education Importance Denies Need Does Patient Smoke tobacco or other No substances Smoking Status Never smoker Is Patient Diabetic Yes Functional Assessment Recent Decline in Ability to Perform Ambulation, Bathing,Lower Body Dressing, Toileting, Transferring, Upper Body Dressing Assistive Device With Patient Yes Culture/Mandaen/Vocational Technical Education Teacher Cultural/Mandaen Needs that may affect No Treatment Plan Would you allow our hospital die attaching machine tender to No meet you for the purpose of spiritual/ emotional support? Vocational Technical Education Teacher to contact place of jew No Teaching: Wound Center *Welcome to the Wound Center -Person Taught Patient,Family -Teaching Method Discussion -Response to teaching Verbalize Understanding (a) 1 - + throughout WC - Nurse 1 - General Ulcer Measurement Start: 02/17/25 08:49 Freq: Status: Active Protocol: Activity Type Activity Date Activity User E-sign Co-sign Detail Recorded Client Recorded Date Recorded By Document 02/17/25 08:49 RB [id number] 02/17/25 09:14 RB Document 02/24/25 10:16 DS [id number] 02/24/25 10:45 DS 02/17/25 02/24/25 08:49 10:16 Wound Center Nurse 1 6. L achilles CLUSTER -Combined with other wound No -Current Size (cm) - Length 0.7 -Current Size (cm) - Width 2.5 -Current Size (cm) - Depth 0.2 -Total Square Cm 1.75 -Photo Taken Yes -Tunneling No -Undermining/Tunneling No -Circular Undermining No -Exudate Amt Large -Exudate Type Serosanguineous -Wound Margin Distinct, Outline Attached -Granulation Amt Medium (34-66%) -Granulation Quality Boronda -Slough/Fibrin Yes -Necrosis Amt Medium (34-66%) -Necrotic Tissue Type Adherent Slough -Structure Exposed N/A -Texture (Nuvia-wound Skin Appearance) Assessed -Moisture (Nuvia-wound Skin Appearance) Maceration, Weeping -Color (Nuvia-wound Skin Appearance) Assessed -Temperature (Nuvia-wound Skin No Abnormality Appearance) (Pt Warm) -Tenderness on Palpation (Nuvia-wound No Skin Appearance) -Ulcer Cleansing Wound Cleanser -Foul Odor after Cleansing No -Anesthetic Used 4% Lidocaine Solution #5- R TAN -Current Size (cm) - Length 3.3 -Current Size (cm) - Width 0.5 -Current Size (cm) - Depth 0.1 -Total Square Cm 1.65 -Exudate Amt Large -Exudate Type Serosanguineous -Wound Margin Distinct, Outline Attached -Granulation Amt None Present (0 %) -Necrosis Amt Large (67-100%) -Necrotic Tissue Type Eschar -Structure Exposed N/A -Texture (Nuvia-wound Skin Appearance) Localized Edema ,Scarring -Moisture (Nuvia-wound Skin Appearance) Weeping -Color (Nuvia-wound Skin Appearance) Erythema, Hemosiderin Staining -Temperature (Nuvia-wound Skin No Abnormality Appearance) (Pt Warm) -Tenderness on Palpation (Nuvia-wound No Skin Appearance) -Ulcer Cleansing Soap and Water -Foul Odor after Cleansing No -Anesthetic Used 4% Lidocaine Solution 7. L anterior ankle -Combined with other wound No -Current Size (cm) - Length 1.5 1.9 -Current Size (cm) - Width 1.7 1.9 -Current Size (cm) - Depth 0.2 0.2 -Total Square Cm 2.55 3.61 -Photo Taken Yes -Tunneling No -Undermining/Tunneling No -Circular Undermining No -Exudate Amt Large Medium -Exudate Type Serosanguineous Serosanguineous -Wound Margin Distinct, Distinct, Outline Outline Attached Attached -Granulation Amt Medium (34-66%) None Present (0 %) -Granulation Quality [place]onda -Slough/Fibrin Yes -Necrosis Amt Medium (34-66%) Large (67-100%) -Necrotic Tissue Type Adherent Slough Adherent Slough -Structure Exposed N/A N/A -Texture (Nuvia-wound Skin Appearance) Assessed Localized Edema ,Scarring -Moisture (Nuvia-wound Skin Appearance) Assessed, Weeping Maceration, Weeping -Color (Nuvia-wound Skin Appearance) Assessed Erythema, Hemosiderin Staining -Temperature (Nuvia-wound Skin No Abnormality Appearance) (Pt Warm) -Tenderness on Palpation (Nuvia-wound No Yes Skin Appearance) -Ulcer Cleansing Wound Cleanser Soap and Water -Foul Odor after Cleansing No -Anesthetic Used 4% Lidocaine 4% Lidocaine Solution Solution 5. L dorsal foot -Combined with other wound No -Current Size (cm) - Length 2 3 -Current Size (cm) - Width 1.7 3.8 -Current Size (cm) - Depth 0.1 0.1 -Total Square Cm 3.4 11.4 -Photo Taken Yes -Tunneling No -Undermining/Tunneling No -Circular Undermining No -Exudate Amt Large None Present -Exudate Type Serosanguineous -Wound Margin Distinct, Thickened Outline Attached -Granulation Amt Medium (34-66%) None Present (0 %) -Granulation Quality [place]onda -Slough/Fibrin Yes -Necrosis Amt Medium (34-66%) Large (67-100%) -Necrotic Tissue Type Adherent Slough Eschar -Structure Exposed N/A N/A -Texture (Nuvia-wound Skin Appearance) Assessed Localized Edema ,Scarring -Moisture (Nuvia-wound Skin Appearance) Maceration, No Abnormality Weeping -Color (Nuvia-wound Skin Appearance) Assessed Erythema, Hemosiderin Staining -Temperature (Nuvia-wound Skin No Abnormality Appearance) (Pt Warm) -Tenderness on Palpation (Nuvia-wound No Skin Appearance) -Ulcer Cleansing Wound Cleanser Soap and Water -Foul Odor after Cleansing No -Anesthetic Used 5% Lidocaine 4% Lidocaine Gel Solution 4. R LAT LE CLUSTER -Combined with other wound No -Current Size (cm) - Length 1.3 13 -Current Size (cm) - Width 1.2 6 -Current Size (cm) - Depth 0.1 0.2 -Total Square Cm 1.56 78 -Photo Taken Yes -Tunneling No -Undermining/Tunneling No -Circular Undermining No -Exudate Amt Large Large -Exudate Type Serosanguineous Serosanguineous -Wound Margin Distinct, Distinct, Outline Outline Attached Attached -Granulation Amt Medium (34-66%) None Present (0 %) -Granulation Quality [place]onda -Slough/Fibrin Yes -Necrosis Amt Medium (34-66%) Large (67-100%) -Necrotic Tissue Type Adherent Slough Adherent Slough -Structure Exposed N/A -Texture (Nuvia-wound Skin Appearance) Assessed Localized Edema -Moisture (Nuvia-wound Skin Appearance) Maceration, Weeping Weeping -Color (Nuvia-wound Skin Appearance) Assessed Erythema, Hemosiderin Staining -Temperature (Nuvia-wound Skin No Abnormality No Abnormality Appearance) (Pt Warm) (Pt Warm) -Tenderness on Palpation (Nuvia-wound No Skin Appearance) -Ulcer Cleansing Wound Cleanser Soap and Water -Foul Odor after Cleansing No No -Anesthetic Used 4% Lidocaine 4% Lidocaine Solution Solution *3.RLE MEDIAL cluster -Combined with other wound No -Current Size (cm) - Length 9.5 14.5 -Current Size (cm) - Width 20.3 11 -Current Size (cm) - Depth 0.2 0.1 -Total Square Cm 192.85 159.5 -Photo Taken Yes -Tunneling No -Undermining/Tunneling No -Circular Undermining No -Exudate Amt Large Medium -Exudate Type Serosanguineous Serosanguineous -Wound Margin Distinct, Distinct, Outline Outline Attached Attached -Granulation Amt Medium (34-66%) None Present (0 %) -Granulation Quality [place] -Slough/Fibrin Yes -Necrosis Amt Medium (34-66%) Large (67-100%) -Necrotic Tissue Type Adherent Slough Adherent Slough -Structure Exposed N/A N/A -Texture (Nuvia-wound Skin Appearance) Assessed Localized Edema ,Scarring -Moisture (Nuvia-wound Skin Appearance) Assessed, Weeping Maceration, Weeping -Color (Nuvia-wound Skin Appearance) Assessed Erythema, Hemosiderin Staining -Temperature (Nuvia-wound Skin No Abnormality No Abnormality Appearance) (Pt Warm) (Pt Warm) -Tenderness on Palpation (Nuvia-wound No Skin Appearance) -Ulcer Cleansing Wound Cleanser Soap and Water -Foul Odor after Cleansing No No -Anesthetic Used 4% Lidocaine 4% Lidocaine Solution Solution 2. R dorsal foot -Combined with other wound No -Current Size (cm) - Length 2.4 2.5 -Current Size (cm) - Width 1 1.1 -Current Size (cm) - Depth 0.2 0.2 -Total Square Cm 2.4 2.75 -Photo Taken Yes -Tunneling No -Undermining/Tunneling No -Circular Undermining No -Exudate Amt Large Large -Exudate Type Serosanguineous Serosanguineous -Wound Margin Distinct, Distinct, Outline Outline Attached Attached -Granulation Amt Medium (34-66%) None Present (0 %) -Granulation Quality [place] -Slough/Fibrin Yes -Necrosis Amt Medium (34-66%) Large (67-100%) -Necrotic Tissue Type Adherent Slough Eschar -Structure Exposed N/A N/A -Texture (Nuvia-wound Skin Appearance) Assessed Localized Edema ,Scarring -Moisture (Nuvia-wound Skin Appearance) Assessed, Dry/Scaly Maceration, Weeping -Color (Nuvia-wound Skin Appearance) Assessed Erythema, Hemosiderin Staining -Temperature (Nuvia-wound Skin No Abnormality No Abnormality Appearance) (Pt Warm) (Pt Warm) -Tenderness on Palpation (Nuvia-wound No No Skin Appearance) -Ulcer Cleansing Wound Cleanser Soap and Water -Foul Odor after Cleansing No No -Anesthetic Used 4% Lidocaine 4% Lidocaine Solution Solution Lower Limb Edema Present Yes Right Calf (cm) 38 34.5 Right Ankle (cm) 21.4 22.5 Left Calf (cm) 40.2 40 Left Ankle (cm) 21.5 22.5 WC - Nurse 2 - General Ulcer CM Notes Start: 02/17/25 08:49 Freq: Status: Active Protocol: Activity Type Activity Date Activity User E-sign Co-sign Detail Recorded Client Recorded Date Recorded By Document 02/17/25 09:30 [facility] [id number] 02/17/25 10:21 BM Document 02/24/25 10:54 [facility] [id number] 02/24/25 11:05 [facility] 02/17/25 02/24/25 09:30 10:54 Wound Center Nurse 2 #9- L ACHILLES CLUSTER -Time 09:50 -Correct Patient Yes -Correct Side, Site, Position Yes -Correct Procedure Yes -Procedure Performed Yes -Type of Procedure Debridement -Clinical Debridement Subcutaneous -Tissue Removed Subcutaneous -Post Debridement (cm) - Length 1.5 -Post Debridement (cm) - Width 4.5 -Post Debridement (cm) - Depth 0.1 -Total Square (Post) (cm) 6.75 -Area of Debridement (cm) - Length 1.5 -Area of Debridement (cm) - Width 4.5 -Total Square (Area) (cm) 6.75 -Tunneling No -Undermining/Tunneling No -Circular Undermining No -Wound/Ulcer Outcome Not Healed -Ulcer Cleansing Rinsed/ Irrigated with Saline -Foul Odor after Cleansing No -Bioengineered Tissue No -Bleeding Controlled with Pressure -Treatment Response Procedure Tolerated Well -Debridement - Subq, 1st 20sq cm Yes -Debridement, SubQ, ea addt'l 20sq cm 2 or part thereof #8- R LAT CALF -Time 09:49 -Correct Patient Yes -Correct Side, Site, Position Yes -Correct Procedure Yes -Procedure Performed Yes -Type of Procedure Debridement -Clinical Debridement Subcutaneous -Tissue Removed Subcutaneous -Post Debridement (cm) - Length 1.5 -Post Debridement (cm) - Width 1.3 -Post Debridement (cm) - Depth 0.2 -Total Square (Post) (cm) 1.95 -Area of Debridement (cm) - Length 1.5 -Area of Debridement (cm) - Width 1.3 -Total Square (Area) (cm) 1.95 -Tunneling No -Undermining/Tunneling No -Circular Undermining No -Wound/Ulcer Outcome Not Healed -Ulcer Cleansing Rinsed/ Irrigated with Saline -Foul Odor after Cleansing No -Bioengineered Tissue No -Bleeding Controlled with Pressure -Debridement - Subq, 1st 20sq cm No 6. L achilles CLUSTER -Time 09:38 -Correct Patient Yes -Correct Side, Site, Position Yes -Correct Procedure Yes -Procedure Performed Yes -Type of Procedure Debridement -Clinical Debridement Muscle / Fascia -Tissue Removed Muscle,Fascia -Post Debridement (cm) - Length 4.5 -Post Debridement (cm) - Width 4 -Post Debridement (cm) - Depth 0.4 -Total Square (Post) (cm) 18.0 -Area of Debridement (cm) - Length 4.5 -Area of Debridement (cm) - Width 4 -Total Square (Area) (cm) 18.0 -Tunneling No -Undermining/Tunneling No -Circular Undermining No -Wound/Ulcer Outcome Not Healed -Ulcer Cleansing Rinsed/ Irrigated with Saline -Foul Odor after Cleansing No -Bioengineered Tissue No -Bleeding Controlled with Pressure -Treatment Response Procedure Tolerated Well -Debridement - Muscle / Fascia, 1st Yes 20sq cm #5- R TAN -Time 09:44 -Correct Patient Yes -Correct Side, Site, Position Yes -Correct Procedure Yes -Procedure Performed Yes -Type of Procedure Debridement -Clinical Debridement Subcutaneous -Tissue Removed Subcutaneous -Post Debridement (cm) - Length 6.2 -Post Debridement (cm) - Width 1.5 -Post Debridement (cm) - Depth 0.2 -Total Square (Post) (cm) 9.30 -Area of Debridement (cm) - Length 6.2 -Area of Debridement (cm) - Width 1.5 -Total Square (Area) (cm) 9.30 -Tunneling No -Undermining/Tunneling No -Circular Undermining No -Wound/Ulcer Outcome Not Healed -Ulcer Cleansing Rinsed/ Irrigated with Saline -Foul Odor after Cleansing No -Bioengineered Tissue No -Bleeding Controlled with Pressure -Treatment Response Procedure Tolerated Well -Debridement - Subq, 1st 20sq cm No 7. L anterior ankle -Time 09:38 -Correct Patient Yes -Correct Side, Site, Position Yes -Correct Procedure Yes -Procedure Performed Yes -Type of Procedure Debridement -Clinical Debridement Subcutaneous -Tissue Removed Subcutaneous -Post Debridement (cm) - Length 1.7 -Post Debridement (cm) - Width 1.5 -Post Debridement (cm) - Depth 0.2 -Total Square (Post) (cm) 2.55 -Area of Debridement (cm) - Length 1.7 -Area of Debridement (cm) - Width 1.5 -Total Square (Area) (cm) 2.55 -Tunneling No -Undermining/Tunneling No -Circular Undermining No -Wound/Ulcer Outcome Not Healed -Ulcer Cleansing Rinsed/ Irrigated with Saline -Foul Odor after Cleansing No -Bioengineered Tissue No -Bleeding Controlled with Pressure -Treatment Response Procedure Tolerated Well -Debridement - Subq, 1st 20sq cm No 5. L dorsal foot -Time 09:46 -Correct Patient Yes -Correct Side, Site, Position Yes -Correct Procedure Yes -Procedure Performed Yes -Type of Procedure Debridement -Clinical Debridement Subcutaneous -Tissue Removed Subcutaneous -Post Debridement (cm) - Length 2 -Post Debridement (cm) - Width 2.5 -Post Debridement (cm) - Depth 0.1 -Total Square (Post) (cm) 5.0 -Area of Debridement (cm) - Length 2 -Area of Debridement (cm) - Width 2.5 -Total Square (Area) (cm) 5.0 -Tunneling No -Undermining/Tunneling No -Circular Undermining No -Wound/Ulcer Outcome Not Healed -Ulcer Cleansing Rinsed/ Irrigated with Saline -Foul Odor after Cleansing No -Bioengineered Tissue No -Bleeding Controlled with Pressure -Treatment Response Procedure Tolerated Well -Debridement - Subq, 1st 20sq cm No 4. R LAT LE CLUSTER -Time 09:48 -Correct Patient Yes -Correct Side, Site, Position Yes -Correct Procedure Yes -Procedure Performed Yes -Type of Procedure Debridement -Clinical Debridement Subcutaneous -Tissue Removed Subcutaneous -Post Debridement (cm) - Length 5.3 -Post Debridement (cm) - Width 2 -Post Debridement (cm) - Depth 0.3 -Total Square (Post) (cm) 10.6 -Area of Debridement (cm) - Length 5.3 -Area of Debridement (cm) - Width 2 -Total Square (Area) (cm) 10.6 -Tunneling No -Undermining/Tunneling No -Circular Undermining No -Wound/Ulcer Outcome Not Healed -Ulcer Cleansing Rinsed/ Irrigated with Saline -Foul Odor after Cleansing No -Bioengineered Tissue No -Bleeding Controlled with Pressure -Treatment Response Procedure Tolerated Well -Debridement - Subq, 1st 20sq cm No *3.RLE MEDIAL cluster -Time 09:35 -Correct Patient Yes -Correct Side, Site, Position Yes -Correct Procedure Yes -Procedure Performed Yes -Type of Procedure Debridement -Clinical Debridement Subcutaneous -Tissue Removed Subcutaneous -Post Debridement (cm) - Length 6.3 -Post Debridement (cm) - Width 4 -Post Debridement (cm) - Depth 0.3 -Total Square (Post) (cm) 25.2 -Area of Debridement (cm) - Length 6.3 -Area of Debridement (cm) - Width 4 -Total Square (Area) (cm) 25.2 -Tunneling No -Undermining/Tunneling No -Circular Undermining No -Wound/Ulcer Outcome Not Healed -Ulcer Cleansing Rinsed/ Irrigated with Saline -Foul Odor after Cleansing No -Bioengineered Tissue No -Bleeding Controlled with Pressure -Treatment Response Procedure Tolerated Well -Debridement - Subq, 1st 20sq cm No 2. R dorsal foot -Time 09:39 -Correct Patient Yes -Correct Side, Site, Position Yes -Correct Procedure Yes -Procedure Performed Yes -Type of Procedure Debridement -Clinical Debridement Subcutaneous -Tissue Removed Subcutaneous -Post Debridement (cm) - Length 2.5 -Post Debridement (cm) - Width 1 -Post Debridement (cm) - Depth 0.3 -Total Square (Post) (cm) 2.5 -Area of Debridement (cm) - Length 2.5 -Area of Debridement (cm) - Width 1 -Total Square (Area) (cm) 2.5 -Tunneling No -Undermining/Tunneling No -Circular Undermining No -Wound/Ulcer Outcome Not Healed -Ulcer Cleansing Rinsed/ Irrigated with Saline -Foul Odor after Cleansing No -Bioengineered Tissue No -Bleeding Controlled with Pressure -Treatment Response Procedure Tolerated Well -Debridement - Subq, 1st 20sq cm No Pain Scale: 0-10 Numeric Is Patient Pain Free? Yes No Pain Scale: Nicole/Nunes Faces Is Patient Pain Free? No Nicole-Nunes Faces Pain Rating <Entered> (a) Pain Behavior Moaning, Guarding, Withdrawal from Touch,Facial Grimacing Comments send to er (a) 1 - 8 WC - Nurse 3 - General Ulcer D/C NN Start: 02/17/25 08:49 Freq: Status: Active Protocol: Activity Type Activity Date Activity User E-sign Co-sign Detail Recorded Client Recorded Date Recorded By Document 02/17/25 10:22 RB [id number] 02/17/25 10:26 RB 02/17/25 10:22 W[facility] Center Nurse 3 #9- L ACHILLES CLUSTER -Ulcer Cleansing Rinsed/ Irrigated with Saline -Primary Dressing Applied Aquacel AG 4x4 -Primary Dressing Covered/Secured with Dry Gauze & Roll Gauze, Secured with Tape -Aquacel AG 4x4 2 #8- R LAT CALF -Other Dressing AQUACEL AG -Primary Dressing Covered/Secured with Dry Gauze & Roll Gauze, Secured with Tape 6. L achilles CLUSTER -Other Dressing AQUACEL AG #5- R TAN -Other Dressing AQUACEL AG -Primary Dressing Covered/Secured with Dry Gauze & Roll Gauze, Secured with Tape 7. L anterior ankle -Other Dressing AQUACEL AG -Primary Dressing Covered/Secured with Dry Gauze & Roll Gauze, Secured with Tape 5. L dorsal foot -Other Dressing AQUACEL AG 4. R LAT LE CLUSTER -Other Dressing AQUACEL AG *3.RLE MEDIAL cluster -Other Dressing AQUACEL AG 2. R dorsal foot -Other Dressing AQUACEL AG -Primary Dressing Covered/Secured with Dry Gauze & Roll Gauze, Secured with Tape BLE -Tubular Bandage Double Layer -Size of Tubigrip Used Size E -Size E ($) 4 Treatment Response Procedure Tolerated Well Pain Scale: 0-10 Numeric Is Patient Pain Free? No BLE -Description Aching -Intensity 6 -Duration (hours) Chronic -Pain Behavior Withdrawal from Touch -Pain Aggravating Factors Exercise/ Activity -Alleviating Factors/Interventions Medication -Effectiveness of Alleviating Factor/ Minimally Intervention effective WC - Visit Discharge Discharge Condition Stable Ambulatory Status Wheelchair Transportation Private Auto Accompanied by SON Medication Reconcilliation completed & No provided to patient/care provider Clinical Summary of Care Provided Yes Assessment/Plan Assessment/Plan (1) Edema, lower extremity: CODE(S): R60.0 - Localized edema (2) Peripheral vascular disease due to secondary diabetes: CODE(S): E13.51 - Other specified diabetes mellitus with diabetic peripheral angiopathy without gangrene (3) Infected open wound: CODE(S): T14.8XXA - Other injury of unspecified body region, initial encounter; L08.9 - Local infection of the skin and subcutaneous tissue, unspecified (4) Sepsis: CODE(S): A41.9 - Sepsis, unspecified organism QUALIFIERS: Sepsis type: sepsis due to unspecified organism Sepsis acute organ dysfunction status: without acute organ dysfunction Qualified Code(s): A41.9 - Sepsis, unspecified organism PLAN: Plan Referred to the emergency room at [facility] for further evaluation to surgery and vascular
== END 2025-03-01 23:59 | disposition home or self-care (01) ==
LOC: WC 10:00
PROVIDERS: PCP Nurse Practitioner; Referring Provider Nurse Practitioner; Visit Provider Nurse Practitioner
DX: E13.622 Other specified diabetes mellitus with other skin ulcer (principal); L97.322 Non-pressure chronic ulcer of left ankle with fat layer exposed; L97.822 Non-pressure chronic ulcer of other part of left lower leg with fat layer exposed; L97.812 Non-pressure chronic ulcer of other part of right lower leg with fat layer exposed; E13.51 Other specified diabetes mellitus with diabetic peripheral angiopathy without gangrene; R53.83 Other fatigue; M79.605 Pain in left leg; M79.604 Pain in right leg; R60.0 Localized edema; T14.8XXA Other injury of unspecified body region, initial encounter; L08.9 Local infection of the skin and subcutaneous tissue, unspecified
CPT/HCPCS: 11042; 11043; 11045; 99214; G0463

== ENCOUNTER 2025-02-24 11:40 | Inpatient (IN) | payer MEDICARE, SELFPAY ==
[2025-02-24] VITALS (11 sets, daily range): BP systolic 117–151; BP diastolic 63–111; PULSE 88–115; RESP 14–22; TEMP 36.4–36.9; O2SAT 94–98; BMI 23.0; BMI 23.3
--- NOTE | 2025-02-24 12:06 | VDLE_ITS ---
Reason For Study Reason For Study: Pain RIGHT LEFT GSV is normal. GSV is normal. CFV is compressible, spontaneous, phasic, competent CFV is compressible, spontaneous, phasic, competent, and demonstrates normal augmentation. and demonstrates normal augmentation. FV is compressible, spontaneous, phasic, competent FV is compressible, spontaneous, phasic, competent and demonstrates normal augmentation. and demonstrates normal augmentation. POP V is compressible, spontaneous, phasic, competent POP V is compressible, spontaneous, phasic, competent and demonstrates normal augmentation. and demonstrates normal augmentation. T/P Trunk is compressible. T/P Trunk is compressible. PTV is compressible. PTV is compressible. RT PerV is compressible. LT PerV is compressible. Procedure This is a venous duplex using B-mode, color flow and spectral Doppler. Exam performed portable in ED. Technically difficult study due to patient positioning and intolerence to compressions. A preliminary report was called and/or faxed to CATHIE Maldonado RN. VL/Venous Duplex US - [place] Extrem Interpretation Summary Deep veins of the bilateral lower extremities are patent and compressible segme ntally. There is no evidence of bilateral lower extremity deep vein thrombosis. The bilateral great saphenous veins appea r patent and compressible segmentally. Technically difficult study due to patient positioning and intolerance to compr essions. Ordering Physician: Vinay Cortez Referring Physician: Angel Drake MD Performed By: Lillian Espitia RVT
--- NOTE | 2025-02-24 12:06 | RAD_ITS ---
PROCEDURE: CHEST 1 VIEW (PORTABLE) 02/24/2025 REASON FOR EXAM: HYPERTENSION TECHNIQUE: AP portable upright chest. COMPARISON: None provided. RAD/Chest 1 View (Portable) IMPRESSION: A calcified and tortuous aorta is noted. An aortic stent graft is noted. No evidence of cardiomegaly. Lungs appear clear throughout. No pleural effusion or pneumothorax is evident. Degenerative changes are seen of the bilateral acromioclavicular joints as well as ([id number]) glenohumeral joints. No acute osseous process is seen. Reading Location: [id number]
--- NOTE | 2025-02-24 12:06 | RAD_ITS ---
EXAM: Three-view left ankle series CLINICAL HISTORY: Pain. COMPARISON: None provided. TECHNIQUE: Three-view left ankle series. RAD/Ankle min 3 Views IMPRESSION: Moderate arterial calcifications are seen. On the lateral view, no ankle joint effusion is seen. Mild inferior calcaneal spurring is noted. Mild degenerative changes are seen of the midfoot. The Achilles tendon is incompletely visualized due to overlying densities, but no evidence of abnormal contour or retrocalcaneal bursal fluid collection is seen. Mild left ankle joint degenerative changes are seen, most prominent medially. No definite joint narrowing is seen. No evidence of talar dome osteonecrosis or osteochondral fracture. No acute fracture or dislocation is seen. If clinical concern persists, short-term follow-up imaging may be obtained to r ule out a currently occult fracture. Reading Location: [id number]
--- NOTE | 2025-02-24 12:06 | RAD_ITS ---
PROCEDURE: ANKLE MIN 3 VIEWS REASON FOR EXAM: 89-year-old female, pain, bilateral infection in Achilles area. TECHNIQUE: 2 view(s) of each ankle COMPARISON: None. FINDINGS: Diffuse osseous demineralization. No visible fracture. No suspicious bone lesion. Arthrosis of the ankle mortise. Mortise appears intact. No effusion. Soft tissue deformity along the posterior upper foot/lower ankle. No discrete gas or radiopaque foreign body. Vascular calcifications. RAD/Ankle min 3 Views IMPRESSION: Soft tissue deformity along the posterior foot/lower ankle without discrete gas or radiopaque foreign body. Reading Location: [id number]
--- NOTE | 2025-02-24 12:10 | EKG12_ITS ---
Test Reason : Blood Pressure : */* mmHG Vent. Rate : 103 BPM Atrial Rate : 103 BPM P-R Int : 186 ms QRS Dur : 80 ms QT Int : 384 ms P-R-T Axes : 93 20 102 degrees QTcB Int : 503 ms Sinus tachycardia with occasional Premature ventricular complexes Septal infarct , age undetermined Abnormal ECG Confirmed by ROSAS KRAUS, TABATHA ([id number]), editorial intern SHERYL TRUJILLO ([id number]) on 02/25/2025 8:02:58 AM Referred By: Vinay Cortez Confirmed By: TABATHA PILLAI MD
[2025-02-24] MEDS: Ondansetron 4 MG/2 ML Vial IV (12:18)
[2025-02-24] MEDS: Morphine 2 MG/ML Syringe IV ×3 (12:18→18:13)
--- NOTE | 2025-02-24 12:19 | EDS_ITS ---
HPI History of Present Illness Chief Complaint: Wound Informant: patient and family Narrative Narrative: 89-year-old female brought to the emergency department with exposed Achilles tendon of the right ankle. Son states that she had fallen at the end of December and in the January was hospitalized at [facility] where she had 4 fractured ribs. Since returning home she has been ambulatory and caring for herself using a walker. He states that a couple days ago things to take a turn for the worse where she developed pain in her feet and did not wish to participate in home physical therapy. She developed some wounds on the feet and the posterior ankles. She was seen at the wound clinic today where she underwent some debridement and was noted to have exposed Achilles to the right. Son notes she has not had her medications yet today. He notes that she seems to be declining rapidly. Patient herself cannot really tell me much of what is going on other than she hurts but cannot tell where. Son states that she has been complaining that her feet hurt. He notes they are more swollen. Nursing notes erythema in the groin and underneath her breast. [facility] Medical History Neurofibroma of head GERD (gastroesophageal reflux disease) Uncontrolled diabetes mellitus with hyperglycemia, without long-term current use of insulin Home Medications ?Medication ?Instructions ?Recorded ?Last Taken ?Type simvastatin 40 mg tablet 40 mg PO QHS 11/22/16 Unknow n History esomeprazole magnesium 40 mg 40 mg PO DAILY 05/05/24 U nknown History capsule,delayed release metoprolol tartrate 50 mg tablet 50 mg PO BID 05/05/24 Unknown History dapagliflozin propanediol 10 mg 10 mg PO QAM #90 tabs 06/02/24 Unknown Rx tablet (Farxiga) blood sugar diagnostic (OneTouch #100 ea 06/09/24 Unkn own Rx Ultra Test strips) furosemide 40 mg tablet 20 mg PO DAILY 09/08/24 Unkn own History sitagliptin phosphate 50 1 tab PO BIDCM #90 tabs 10/03 05/25 Unknown Rx mg-metformin 1,000 mg tablet (Janumet) Allergy/AdvReac Type Severity Reaction Status Date / Time No Known Allergies Allergy Verified 02/24/25 11:47 Family History no significant family his Surgical History Aortic valve replaced Hx of cataract extraction Social History Smoking Status: Former smoker ROS ROS ED Constitutional Constitutional ED: Denies chills, fever(s) or weight loss Eyes Eyes: Denies change in vision or diplopia ENT ENT ED: Reports other Details: Reported dry mouth ; Denies ear pain, rhinorrhea or sore throat Cardiovascular Cardiovascular: Denies chest pain, orthopnea, palpitations or racing heartbeat Respiratory/Chest Respiratory/Chest: Denies cough, dyspnea or orthopnea Gastrointestinal Gastrointestinal: Reports other Details: Decreased p.o. intake ; Denies abdominal pain, diarrhea, nausea or vomiting Genitourinary Genitourinary ED: Denies dysuria, hematuria or urinary frequency Musculoskeletal Musculoskeletal: Reports other Details: Bilateral feet pain ; Denies arthralgias or myalgias Integumentary Reports other Details: Wounds to bilateral feet and ankles ; Denies abscess or rash Neurologic Neurologic: Denies headache(s) or weakness Psychiatric Psychiatric: Denies anxiety, depression, suicidal ideation or suicidal thoughts Endocrine Endocrinology: Denies polydipsia, polyphagia or polyuria Allergic/Immunologic Allergic/Immunologic ED: Denies mouth swelling, tongue swelling or urticaria EXAM Physical Exam Narrative Exam Narrative: Patient lying in the bed moaning. Const Vital Signs: 02/24/25 11:42 02/24/25 11:47 02/24/25 12:55 Temperature 98.3 F 98.3 F 98.3 F Temperature Source Axillary Axillary Axillary Pulse Rate 115 H 115 H 109 H Respiratory Rate 19 H 19 H 17 Blood Pressure 148/80 H 148/80 H 127/63 H Blood Pressure Mean 102 102 84 Pulse Ox 97 97 95 Oxygen Delivery Method Room Air Room Air Room Air 02/24/25 13:11 02/24/25 14:00 02/24/25 14:58 Temperature 98.3 F 97.6 F L Temperature Source Axillary Temporal Pulse Rate 113 H 88 98 Respiratory Rate 20 H 14 17 Blood Pressure 140/81 H 141/75 H 144/75 H Blood Pressure Mean 100 97 98 Pulse Ox 97 97 Oxygen Delivery Method Room Air Room Air 02/24/25 14:58 02/24/25 14:59 Temperature 97.6 F L Temperature Source Pulse Rate 98 Respiratory Rate 17 Blood Pressure 144/75 H 144/75 H Blood Pressure Mean 98 98 Pulse Ox 97 Oxygen Delivery Method Positive well nourished and well developed General Appearance ED: well developed HEENT Reports normocephalic, head/scalp atraumatic and moist mucous membranes Eyes PERRL and EOMs intact bilaterally Neck no lymphadenopathy, supple and no JVD Resp normal respiratory effort and clear to auscultation bilaterally Cardio regular rate, regular rhythm and no murmurs GI normal to inspection, nondistended, normoactive bowel sounds and non-tender Palpation: soft Back/Spine no CVA tenderness and normal ROM Extremity Extremity Narrative: There is swelling of the both feet. There are patches of wounds on both feet with some mild erythema. There is a large posterior ulcer on the right ankle with white Achilles tendon visualized of about 1 and half inches. I do not appreciate any significant erythema of the legs. Neuro oriented x3 and CN's II-XII intact bilaterally Sensorium / Orientation: alert Motor Exam: strength 5/5 throughout Psych Mood & Affect: Negative for depressed or tearful Skin Skin Narrative: There is erythematous skin in the skin folds of the groin and underneath the breast consistent with a candidiasis infection. MDM MDM MDM Narrative Medical decision making narrative: Differential diagnosis includes but not limited to DVT cellulitis ulcer with tendon exposure peripheral artery disease sepsis Duplex ultrasound bilaterally is negative. White count is elevated 14.2 hemoglobin 10.3 platelet count is 236. INR 1.2 creatinine 0.64 with a BUN of 24. Glucose 193. K of 2.8. Lactic acid is normal at 1.9. Urinalysis negative. LFTs within normal limits. Albumin is noted to be slightly low at 2.7. My independent interpretation of the bilateral ankle films is degenerative changes calcification of arteries and soft tissue defect posterior right ankle. My independent interpretation of the chest x-ray is no acute process. EKG this is sinus tachycardia. I gave her 5 mg of metoprolol as well as morphine and Zofran. Vancomycin and Zosyn were administered after blood cultures. Nystatin was applied to her wounds. She was given hydration through the IV. I will speak with podiatry Dr Awad as well as Dr. Morales from the hospitalist service. History & Record Review Discussion w/independent historian: Patient and Family Lab Data Attestation: I reviewed the patient's lab results. Labs: Laboratory Results - last 24 hr 02/24/25 02/24/25 12:10 12:35 WBC 14.2 H RBC 3.72 L Hgb 10.3 L Hct 32.3 L MCV 86.8 MCH 27.7 MCHC 31.9 L RDW Std Deviation 54.4 H RDW Coeff of Taty 17.0 H Plt Count 236 MPV 11.1 Immature Gran % (Auto) 0.500 Neut % (Auto) 81.9 H Lymph % (Auto) 8.6 L [place] % (Auto) 8.8 Eos % (Auto) 0.1 Baso % (Auto) 0.1 Absolute Neuts (auto) 11.7 H Absolute Lymphs (auto) 1.22 Nucleated RBC % 0 PT 15.4 H INR 1.2 APTT 28.8 Sodium 139 Potassium 2.8 L Chloride 100 Carbon Dioxide 27.5 Anion Gap 11 BUN 24 H Creatinine 0.64 L Estim Creat Clear Calc 42.90 L Est GFR (MDRD) Non-Af 84 BUN/Creatinine Ratio 36.9 H Glucose 193 H Lactic Acid 1.9 Calcium 8.0 Total Bilirubin 0.59 AST 16 ALT 10 Alkaline Phosphatase 98 Total Protein 6.3 Albumin 2.7 L Globulin 3.6 Albumin/Globulin Ratio 0.7 L Urine Color Yellow Urine Clarity Sl. Cloudy Urine pH 6.0 Ur Specific [place] 1.015 Urine Protein 30 H Urine Glucose (UA) 1000 H Urine Ketones Negative Urine Occult Blood Negative Urine Nitrite Negative Urine Bilirubin Negative Urine Urobilinogen Normal Ur Leukocyte Esterase 25 H Urine RBC 0 SEEN Urine WBC 0-5 SEEN Ur Squamous Epith Cells 0-5 SEEN Urine Bacteria 0 SEEN Urine Mucus 0 SEEN Radiography Diagnostic Testing: Clinical Impression(s) from Imaging Studies Ankle X-Ray 02/24/25 12:06 IMPRESSION: Moderate arterial calcifications are seen. On the lateral view, no ankle joint effusion is seen. Mild inferior calcaneal spurring is noted. Mild degenerative changes are seen of the midfoot. The Achilles tendon is incompletely visualized due to overlying densities, but no evidence of abnormal contour or retrocalcaneal bursal fluid collection is seen. Mild left ankle joint degenerative changes are seen, most prominent medially. No definite joint narrowing is seen. No evidence of talar dome osteonecrosis or osteochondral fracture. No acute fracture or dislocation is seen. If clinical concern persists, short-term follow-up imaging may be obtained to rule out a currently occult fracture. Reading Location: [id number] Chest X-Ray 02/24/25 12:06 IMPRESSION: A calcified and tortuous aorta is noted. An aortic stent graft is noted. No evidence of cardiomegaly. Lungs appear clear throughout. No pleural effusion or pneumothorax is evident. Degenerative changes are seen of the bilateral acromioclavicular joints as well as ([id number]) glenohumeral joints. No acute osseous process is seen. Reading Location: [id number] Management Discussion w/another healthcare provider: Hospitalist (Dr Coffey) and Water Resources Technical Officer (Dr Awad) Discharge Plan Dx/Rx/DC Orders Clinical Impression: Bilateral foot pain, Ankle ulcer, Cellulitis of both feet, Hypokalemia Disposition Disposition: Acute Care Hospital [facility]
[2025-02-24] MEDS: 0.9% Normal Saline (1000mL) 1,000 ML 150 ML IV ×2 (12:21→22:08)
[2025-02-24] MEDS: Metoprolol Tartrate 5 MG/5 ML Vial IV (12:21)
[2025-02-24 12:39] LABS: Absolute Lymphocyte Count 1.22 X10^3/uL (0.83-4.51); Absolute Neutrophil Count 11.7 X10^3/uL (2.0-7.7); Basophil# 0.01 X10^3/uL; Basophil% 0.1 % (0-1); Eosinophil# 0.01 X10^3/uL; Eosinophils% 0.1 % (0-5); Hematocrit 32.3 % (37-47); Hemoglobin 10.3 g/dL (12.0-15.0); Lymphocyte # 1.22 X10^3/ul (0.83-4.51); Lymphocyte % 8.6 % (19-41); Mean Corp Hgb Conc 31.9 g/dL (32-36); Mean Corpuscular Hgb 27.7 pg (27.0-32.0); Mean Corpuscular Volume 86.8 fL (81-99); Mean Platelet Vol. 11.1 fl (6.2-12.0); Monocyte# 1.25 X10^3/uL; Monocyte% 8.8 % (0-10); NRBC Flagged by Analyzer 0 % (0-5); Neutrophil # 11.65 X10^3/uL (2.7-7.7); Neutrophil % 81.9 % (47-70); Platelet Count 236 K/mm3 (150-450); RBC Distribution Width SD 54.4 fl (35.1-43.9); Red Blood Count 3.72 M/mm3 (4.2-5.4); White Blood Count 14.2 K/mm3 (4.4-11.0)
[2025-02-24 12:44] LABS: Bacteria 0 SEEN /hpf (None Seen); Mucous, Urine 0 SEEN /hpf (<or=2+)
[2025-02-24 12:50] LABS: International Normalized Ratio 1.2; Prothrombin Time (Protime)PT. 15.4 SECONDS (11.7-14.9)
[2025-02-24 12:51] LABS: Partial Thromboplast Time 28.8 Seconds (24.1-36.2)
[2025-02-24 12:54] LABS: Color, Urine Yellow (Yellow); Glucose, Dipstick 1000 mg/dl (Normal); Ketone-Dipstick Negative (Negative); Leukocyte Esterase-Dipstick 25 /ul (Negative); Nitrite-Dipstick Negative (Negative); Occult Blood-Urine Negative /ul (Negative); Protein-Dipstick 30 mg/dl (Negative); Specific Gravity, Urine 1.015 (1.002-1.030); Urine Bilirubin Dipstick Negative (Negative); Urine Clarity Sl. Cloudy (Clear); Urine Urobilinogen Normal (Normal)
[2025-02-24 13:06] LABS: Red Blood Cells-Urine 0 SEEN /hpf (0-5); Squamous Epithelial Cells - UA 0-5 SEEN /hpf (5-10); White Blood Cells 0-5 SEEN /hpf (0-5)
[2025-02-24 13:08] LABS: ALB/GLOB Ratio 0.7 RATIO (0.9-2.4); AST(SGOT) 16 U/L (<=31); Alanine Aminotransfer ALT/SGPT 10 U/L (<=34); Albumin, Serum 2.7 g/dL (3.4-4.8); Alkaline Phosphatase 98 U/L (35-104); Anion Gap 11 (5-15); BUN 24 mg/dL (4-19); BUN/Creat Ratio 36.9 RATIO (10-20); Carbon Dioxide 27.5 mmol/L (21.0-32.0); Chloride 100 mmol/L (98-108); Creatinine, Serum 0.64 mg/dL (0.70-1.20); EST Glomerular Filtration Rate 84 (>60); Globulin 3.6 g/dL (2.2-4.2); Glucose 193 mg/dL (70-99); Lactic Acid 1.9 mmol/L (0.0-2.0); Potassium 2.8 mmol/L (3.3-5.1); Protein, Total 6.3 g/dL (5.9-8.4); Sodium Level 139 mmol/L (133-145); Total Bilirubin 0.59 mg/dL (0.00-1.30)
[2025-02-24] MEDS: Vancomycin HCl 1,500 MG in 0.9% Normal Saline (500mL Bag) 500 ML 250 MG IV (13:36)
[2025-02-24] MEDS: Piperacil/Tazobactam 3.375 GM in 0.9% Normal Saline (50mL MB+) 50 ML IV ×2 (13:50→21:11)
[2025-02-24] MEDS: Nystatin Powder 15gm Bottle 1 APPLIC TOPICAL ×2 (13:50→22:09)
--- NOTE | 2025-02-24 14:44 | PCM.HP.STD ---
HPI - General General Date of Admission: 02/24/25 Date of Service: 02/24/25 Chief Complaint: Feet pain HPI Narrative REAGAN INMAN, is a 89-year-old female history of GERD and diabetes presented [facility] ED 02/24/2025 for exposed Achilles tendon of the right ankle. Patient following at the end of December and in January was hospitalized at [place] where she was found to have 4 rib fractures, ultimately she returned home and up and ambulating and caring for herself using a walker however couple days ago patient began to complain of pain in her feet and did not want to participate in physical therapy. She was noted to have developed some wounds on her feet at the posterior ankles and went to the wound clinic today where she underwent debridement and was noted to have exposed Achilles tendon on the right so she was sent to the ED. In the ED white blood cell count 14.2, potassium 2.8 and patient slightly tachycardic with heart rate of 115 with blood pressure 148/80. Patient had cultures obtained and hospitalist contacted for admission. Patient evaluated bedside, patient tired after receiving pain medications so will wake up but quickly falls back asleep. History obtained from son at bedside he reports that patient had been doing well at home, was following with the wound center for wounds on her feet but over the past couple days she has had worsening pain and was not wanting to walk and is also been a little confused, when she seen at the wound center they were told it was much worse than it was so they came to the ED. Patient unable to provide additional history. Son does report patient has not had any fevers or other complaints prior to coming to the ED [facility] Medical History Neurofibroma of head GERD (gastroesophageal reflux disease) Uncontrolled diabetes mellitus with hyperglycemia, without long-term current use of insulin Home Medications ?Medication ?Instructions ?Recorded ?Last Taken ?Type simvastatin 40 mg tablet 40 mg PO QHS 11/22/16 Unknown History esomeprazole magnesium 40 mg 40 mg PO DAILY 05/05/24 Unknown History capsule,delayed release metoprolol tartrate 50 mg tablet 50 mg PO BID 05/05/24 Unknown History dapagliflozin propanediol 10 mg 10 mg PO QAM #90 tabs 06/02/24 Unknown Rx tablet (Farxiga) [facility] Unknown Rx Ultra Test strips) furosemide 40 mg tablet 20 mg PO DAILY 09/08/24 Unknown History sitagliptin phosphate 50 1 tab PO BIDCM #90 tabs 10/27/24 Unknown Rx mg-metformin 1,000 mg tablet (Ketanumepalmira) Allergy/AdvReac Type Severity Reaction Status Date / Time No Known Allergies Allergy Verified 02/24/25 11:47 Family History no significant family his Surgical History Aortic valve replaced Hx of cataract extraction Social History Smoking Status: Former smoker ROS ROS Narrative Unable to obtain due to mental status Vital Signs Vital Signs Vital Signs: 02/24/25 11:42 02/24/25 11:47 02/24/25 12:55 Temperature 98.3 F 98.3 F 98.3 F Temperature Source Axillary Axillary Axillary Pulse Rate 115 H 115 H 109 H Respiratory Rate 19 H 19 H 17 Blood Pressure 148/80 H 148/80 H 127/63 H Blood Pressure Mean 102 102 84 Pulse Ox 97 97 95 Oxygen Delivery Method Room Air Room Air Room Air 02/24/25 13:11 02/24/25 14:00 Temperature 98.3 F Temperature Source Axillary Pulse Rate 113 H 88 Respiratory Rate 20 H 14 Blood Pressure 140/81 H 141/75 H Blood Pressure Mean 100 97 Pulse Ox 97 Oxygen Delivery Method Room Air Weight Weight: 62.8 kg Body Mass Index (BMI) 23.0 Physical Exam Narrative General: Sleeping comfortably, will wake up but quickly falls back asleep HEENT: Atraumatic, normocephalic Eyes: Anicteric, normal conjunctiva, extraocular movements grossly intact Neck: Supple Respiratory: Normal respiratory effort Cardiovascular: Regular rate and rhythm at this time GI: Soft, nontender, nondistended Extremities: No significant pitting edema Musculoskeletal: Moving all extremities Neuro: No overt focal neurological deficits however patient unable to purposefully interact and exam Skin: Bilateral feet wrapped without drainage Psych: Cooperative Results Lab / Micro Data 02/24/25 12:10 02/24/25 12:10 Labs: Laboratory Results - last 24 hr 02/24/25 12:10: WBC 14.2 H, RBC 3.72 L, Hgb 10.3 L, Hct 32.3 L, MCV 86.8, MCH 27.7, MCHC 31.9 L, RDW Std Deviation 54.4 H, RDW Coeff of Taty 17.0 H, Plt Count 236, MPV 11.1, Immature Gran % (Auto) 0.500, Neut % (Auto) 81.9 H, Lymph % (Auto) 8.6 L, [place] % (Auto) 8.8, Eos % (Auto) 0.1, Baso % (Auto) 0.1, Absolute Neuts (auto) 11.7 H, Absolute Lymphs (auto) 1.22, Nucleated RBC % 0, PT 15.4 H, INR 1.2, APTT 28.8, Sodium 139, Potassium 2.8 L, Chloride 100, Carbon Dioxide 27.5, Anion Gap 11, BUN 24 H, Creatinine 0.64 L, Estim Creat Clear Calc 42.90 L, Est GFR (MDRD) Non-Af 84, BUN/Creatinine Ratio 36.9 H, Glucose 193 H, Lactic Acid 1.9, Calcium 8.0, Total Bilirubin 0.59, AST 16, ALT 10, Alkaline Phosphatase 98, Total Protein 6.3, Albumin 2.7 L, Globulin 3.6, Albumin/Globulin Ratio 0.7 L 02/24/25 12:35: Urine Color Yellow, Urine Clarity Sl. Cloudy, Urine pH 6.0, Ur Specific [place] 1.015, Urine Protein 30 H, Urine Glucose (UA) 1000 H, Urine Ketones Negative, Urine Occult Blood Negative, Urine Nitrite Negative, Urine Bilirubin Negative, Urine Urobilinogen Normal, Ur Leukocyte Esterase 25 H, Urine RBC 0 SEEN, Urine WBC 0-5 SEEN, Ur Squamous Epith Cells 0-5 SEEN, Urine Bacteria 0 SEEN, Urine Mucus 0 SEEN Imaging Radiology Impression Ankle X-Ray 02/24/25 12:06 IMPRESSION: Moderate arterial calcifications are seen. On the lateral view, no ankle joint effusion is seen. Mild inferior calcaneal spurring is noted. Mild degenerative changes are seen of the midfoot. The Achilles tendon is incompletely visualized due to overlying densities, but no evidence of abnormal contour or retrocalcaneal bursal fluid collection is seen. Mild left ankle joint degenerative changes are seen, most prominent medially. No definite joint narrowing is seen. No evidence of talar dome osteonecrosis or osteochondral fracture. No acute fracture or dislocation is seen. If clinical concern persists, short-term follow-up imaging may be obtained to rule out a currently occult fracture. Reading Location: [address] Chest X-Ray 02/24/25 12:06 IMPRESSION: A calcified and tortuous aorta is noted. An aortic stent graft is noted. No evidence of cardiomegaly. Lungs appear clear throughout. No pleural effusion or pneumothorax is evident. Degenerative changes are seen of the bilateral acromioclavicular joints as well as ([id number]-left) glenohumeral joints. No acute osseous process is seen. Reading Location: [address] Assessment & Plan Assessment/Plan (1) Bilateral foot pain: (2) Ankle ulcer: PLAN: Plan # Exposed Achilles tendon on the right and bilateral foot wounds/foot pain -Podiatry consult -Wound care consult -Ankle x-ray with moderate arterial calcifications overlying densities over Achilles tendon but no fluid collection, degenerative changes, no acute fracture or dislocation -PT/OT -Pain control -Wound culture sent in the ED -Patient started on broad-spectrum antibiotics, will continue #Hypokalemia -Replace -Will obtain repeat, patient can be monitored on telemetry on [employer] and once it comes up appropriately this can be DC'd # Intertrigo -Under breasts and in groin -Nystatin powder #Type 2 diabetes mellitus -Glucose checks and sliding scale insulin #GERD -Continue PPI #DVT ppx: SCDs Naty Morales MD Time spent in the patient's overall evaluation, decision-making process, review of diagnostic data, adjustment of management, discussion with other providers, nursing and ancillary staff involved in patient's care documentation, 58 Minutes Charges/Coding Visit Charges Inpatient E&M: 76756 Init Hosp L2
[2025-02-24] MEDS: Potassium Chloride 10mEq/100mL 10 MEQ/100 ML IV.SOLN. 100 MEQ IV BOLUS ×2 (15:18→16:16)
[2025-02-24 15:52] LABS: Magnesium 1.3 mg/dL (1.5-2.2)
[2025-02-24 15:53] LABS: Anion Gap 10 (5-15); BUN 21 mg/dL (4-19); BUN/Creat Ratio 35.9 RATIO (10-20); Calcium,Total 7.5 mg/dL (7.6-11.0); Chloride 104 mmol/L (98-108); Creatinine, Serum 0.58 mg/dL (0.70-1.20); EST Glomerular Filtration Rate 86 (>60); Glucose 125 mg/dL (70-99); Sodium Level 140 mmol/L (133-145)
--- NOTE | 2025-02-24 16:40 | CASEMGMT ---
TIM CM: Call received from Alana at [facility] who states pt is active with their agency for prison and PT services. Dinora Shaver RN AC
--- NOTE | 2025-02-24 17:46 | PCM.RX.CS ---
Consult Antibiotic Management Pharmacy has been consulted to manage selected antibiotic: Vancomycin Suspected Infection Suspected Infection: Skin/Soft tissue Labs Labs: Sodium 140 mmol/L (133-145) 02/24/25 15:00 Potassium 3.0 mmol/L (3.3-5.1) L 02/24/25 15:00 Chloride 104 mmol/L (98-108) 02/24/25 15:00 Carbon Dioxide 26.0 mmol/L (21.0-32.0) 02/24/25 15:00 Anion Gap 10 (5-15) 02/24/25 15:00 BUN 21 mg/dL (4-19) H 02/24/25 15:00 Creatinine 0.58 mg/dL (0.70-1.20) L 02/24/25 15:00 Est GFR (MDRD) Non-Af 86 (>60) 02/24/25 15:00 BUN/Creatinine Ratio 35.9 RATIO (10-20) H 02/24/25 15:00 Glucose 125 mg/dL (70-99) H 02/24/25 15:00 Goal Trough Goal Trough: 15-20 mcg/mL Pharmacy Plan for Drug Dosing Pharmacy Plan for Drug Dosing: NEW START IV VANCOMYCIN Consulting Physician: Dr. Morales Indication: SSTI Goal Trough: 15-20 SrCr: 0.58 CrCl: 42 mL/min Comments: patient had initial dose of 1500mg IV x1 in ED 02/24/25 @1336 Vancomycin Dose: 500mg IV Q12hr to start 02/25/25 @0100 Pending Level: 02/26/25 @0030, prior to 4th total dose of vancomycin per protocol Pharmacy Service will continue to monitor and adjust dosing as required.
[2025-02-24] MEDS: Magnesium Sulfate 4gm/100mL 4 GM/100 ML IV.SOLN. IV (18:36)
[2025-02-24 18:50] LABS: Bedside Glucose 131 mg/dL (74-106)
[2025-02-24] MEDS: oxyCODONE 5 MG Tablet 2.5 MG PO (20:41)
[2025-02-24] MEDS: Menthol/Lanolin/Calamine/Znox 113 GM Tube 1 APPLIC TOPICAL (20:41)
[2025-02-24] MEDS: MELATONIN 3 MG TABLET PO (20:41)
--- NOTE | 2025-02-24 20:52 | ART_ITS ---
Reason For Study Reason For Study: Ulcer Procedure A bilateral lower extremity continuous wave Doppler with analog waveform analysis and ankle brachial indexes. Limited examination due to patient positioning, movement, and patient unable to tolerate compression on PVR portion. Left Segmental Pressures The left dorsalis pedis waveforms are monophasic. No left [employer] pulse due to patient positioning and bandages. Right Segmental Pressures The right dorsalis pedis waveforms are monophasic. The right posterior tibial artery waveforms are monophasic. VL/Ankle Brachial Index Interpretation Summary Limited study. Right SENAIT not obtained due to patient discomfort. Doppler waveforms of the righ t ankle severely diminished at rest. Left SENAIT not obtained due to patient discomfort. Doppler waveforms of the left ankle severely diminished at rest. Ordering Physician: Mark Awad Referring Physician: Tiara Mcintyre Performed By: Mary Ann Mathur RVT
--- NOTE | 2025-02-24 20:55 | CON.PCM_ITS ---
Assessment & Plan Assessment/Plan (1) Non-pressure chronic ulcer of right ankle with necrosis of muscle: (2) Non-pressure chronic ulcer of right ankle with fat layer exposed: (3) Non-pressure chronic ulcer of left ankle with fat layer exposed: (4) Cellulitis of right lower limb: (5) Edema, lower extremity: (6) Peripheral vascular disease due to secondary diabetes: PLAN: Plan Evaluation performed. Reviewed patient's chart and diagnostic data. Bilateral ankle xrays with no evidence of gas. WBC is elevated. A culture wound right ankle has been obtained and results are pending. Patient on is IV antibiotics Vancomycin and Zosyn. A noninvasive lower extremity arterial study has been ordered for further evaluation. Wound care: Bilateral ankle wounds: apply wet to dry gauze with 1/2 strength dakin's solution topically to wounds and cover with abd pad and kerlix - change BID. Discussed possible sharp surgical debridement: She would likely need general anesthesia and believe this would likely be moderate to high risk. At this point will treat nonsurgically as we will get further vascular testing as noted above, and proceed with local wound care for mechanical debridement and antibiotics to treat the infection. Sharp surgical debridement will be further considered in future if needed. Pain management: per hospital medicine Podiatry will continue to follow, thank you for consultation. HPI Consult Data Date of Consult: 02/24/25 HPI Narrative Reason for Consultation: Bilateral ankle wounds HPI Narrative: REAGAN INMAN, is a 89 F who has history of diabetes, PVD and CKD presented today to ER from wound center for bilateral ankle wounds with infection. Patient has been admitted for further management. Her son is at bedside and history was obtained from him and patient's chart. Her son relates she had a lot of swelling back in Jan and was admitted to [facility], wounds seems to start around that time but just in the past week significantly worsened. He relates she was walking as of this past weekend but not able to walk now due to significant pain. Patient is laying in bed moving legs and crying out in pain, she is mumbling as well. Patient's son relates this is not her baseline. He relates she does have history of dementia. [facility] Medical History (Updated 02/24/25 @ 21:[address] Mark Awad, SHE[place]) Anxiety Diabetes Former smoker Atrial fibrillation Neurofibroma of head GERD (gastroesophageal reflux disease) Uncontrolled diabetes mellitus with hyperglycemia, without long-term current use of insulin Home Medications ?Medication ?Instructions ?Recorded ?Last Taken ?Type simvastatin 40 mg tablet 40 mg PO QHS CHOLESTROL 11/02 01/17 Unknown History esomeprazole magnesium 40 mg 40 mg PO DAILY ACID REFLU X 05/05/24 Unknown History capsule,delayed release metoprolol tartrate 50 mg tablet 50 mg PO BID BP 05/05 Unknown History dapagliflozin propanediol 10 mg 10 mg PO QAM DIABETES #90 tabs 06/02/24 Unknown Rx tablet (Farxiga) blood sugar diagnostic (OneTouch #100 ea 06/09/24 Unkn own Rx Ultra Test strips) furosemide 40 mg tablet 20 mg PO DAILY WATER PILL Unknown History sitagliptin phosphate 50 1 tab PO BIDCM DIABETES #90 tabs 10/27/24 Unknown Rx mg-metformin 1,000 mg tablet (Janumet) alprazolam 0.5 mg tablet 0.5 mg PO QHS PRN anxiety Unknown History cyanocobalamin (vitamin B-12) 1,000 mcg PO DAILY SUPPL EMENT 02/24/25 Unknown History 1,000 mcg tablet (Vitamin B-12) nystatin 100,000 unit/gram topical 1 applic topical DA KEATON ANTIFUNGAL 02/24/25 Unknown History powder (Nystop) Allergy/AdvReac Type Severity Reaction Status Date / Time No Known Allergies Allergy Verified 02/24/25 11:47 Family History no significant family his Surgical History (Updated 02/24/25 @ 15:43 by Leonila Devries) History of cholecystectomy Heart valve replaced Aortic valve replaced Hx of cataract extraction Social History Smoking Status: Former smoker Physical Exam Const alert Constitutional Narrative: Right foot/ankle/leg: There is significant wound to right posterior ankle down to exposed achilles tendon, there are several smaller other wounds around right ankle down to subcutaneous tissue, there is localized cellulitis, and also some maloder there too, there is serous drainage and nonviable tissue to the base and margins of the wounds, appears the wounds are very painful, there is no visible abscess, no crepitus, no purulence, no fluctuance. Left foot/ankle/leg: there are two wounds about the size of a quarter to ankle down to subcutaneous tissue, there is fibrotic tissue and some granular tissue to the base and margins are viable, there is no maloder, no fluctuance, no crepitus, no visible abscess, there is some mild erythema localized to site. There appears to be pain to the wounds. No evidence of acute ischemia bilateral foot/ankle, CFT 3-4 seconds to toes bilateral, diffuse LE edema with evidence of some venous disease bilateral. Sensation appears to be intact to touch bilateral foot. Lab / Micro Data 02/24/25 12:10 02/24/25 15:00 Labs: Laboratory Results - last 24 hr 02/24/25 12:10: WBC 14.2 H, RBC 3.72 L, Hgb 10.3 L, Hct 32.3 L, MCV 86.8, MCH 27.7, MCHC 31.9 L, RDW Std Deviation 54.4 H, RDW Coeff of Taty 17.0 H, Plt Count 236, MPV 11.1, Immature Gran % (Auto) 0.500, Neut % (Auto) 81.9 H, Lymph % (Auto) 8.6 L, [place] % (Auto) 8.8, Eos % (Auto) 0.1, Baso % (Auto) 0.1, Absolute Neuts (auto) 11.7 H, Absolute Lymphs (auto) 1.22, Nucleated RBC % 0, PT 15.4 H, INR 1.2, APTT 28.8, Sodium 139, Potassium 2.8 L, Chloride 100, Carbon Dioxide 27.5, Anion Gap 11, BUN 24 H, Creatinine 0.64 L, Estim Creat Clear Calc 42.90 L, Est GFR (MDRD) Non-Af 84, BUN/Creatinine Ratio 36.9 H, Glucose 193 H, Lactic Acid 1.9, Calcium 8.0, Total Bilirubin 0.59, AST 16, ALT 10, Alkaline Phosphatase 98, Total Protein 6.3, Albumin 2.7 L, Globulin 3.6, Albumin/Globulin Ratio 0.7 L 02/24/25 12:35: Urine Color Yellow, Urine Clarity Sl. Cloudy, Urine pH 6.0, Ur Specific [place] 1.015, Urine Protein 30 H, Urine Glucose (UA) 1000 H, Urine Ketones Negative, Urine Occult Blood Negative, Urine Nitrite Negative, Urine Bilirubin Negative, Urine Urobilinogen Normal, Ur Leukocyte Esterase 25 H, Urine RBC 0 SEEN, Urine WBC 0-5 SEEN, Ur Squamous Epith Cells 0-5 SEEN, Urine Bacteria 0 SEEN, Urine Mucus 0 SEEN 02/24/25 15:00: Sodium 140, Potassium 3.0 L, Chloride 104, Carbon Dioxide 26.0, Anion Gap 10, BUN 21 H, Creatinine 0.58 L, Estim Creat Clear Calc 42.90 L, Est GFR (MDRD) Non-Af 86, BUN/Creatinine Ratio 35.9 H, Glucose 125 H, Calcium 7.5 L, Magnesium 1.3 L 02/24/25 17:46: POC Glucose 131 H Imaging Radiology Impression Ankle X-Ray 02/24/25 12:06 IMPRESSION: Moderate arterial calcifications are seen. On the lateral view, no ankle joint effusion is seen. Mild inferior calcaneal spurring is noted. Mild degenerative changes are seen of the midfoot. The Achilles tendon is incompletely visualized due to overlying densities, but no evidence of abnormal contour or retrocalcaneal bursal fluid collection is seen. Mild left ankle joint degenerative changes are seen, most prominent medially. No definite joint narrowing is seen. No evidence of talar dome osteonecrosis or osteochondral fracture. No acute fracture or dislocation is seen. If clinical concern persists, short-term follow-up imaging may be obtained to rule out a currently occult fracture. Reading Location: [address] Ankle X-Ray 02/24/25 12:06 IMPRESSION: Soft tissue deformity along the posterior foot/lower ankle without discrete gas or radiopaque foreign body. Reading Location: [facility] Chest X-Ray 02/24/25 12:06 IMPRESSION: A calcified and tortuous aorta is noted. An aortic stent graft is noted. No evidence of cardiomegaly. Lungs appear clear throughout. No pleural effusion or pneumothorax is evident. Degenerative changes are seen of the bilateral acromioclavicular joints as well as ([id number]) glenohumeral joints. No acute osseous process is seen. Reading Location: [address] Venous Doppler Study 02/24/25 12:06 Interpretation Summary Deep veins of the bilateral lower extremities are patent and compressible segmentally. There is no evidence of bilateral lower extremity deep vein thrombosis. The bilateral great saphenous veins appear patent and compressible segmentally. Technically difficult study due to patient positioning and intolerance to compressions. Ordering Physician: Vinay Cortez Referring Physician: Angel Drake MD Performed By: Lillian Espitia RVT
[2025-02-24] MEDS: Metoprolol Tartrate 50 MG Tablet PO (21:09)
[2025-02-24] MEDS: Senna/Docusate Sodium 1 Tablet 2 TABLET PO (21:10)
[2025-02-24] MEDS: Acetaminophen 500 MG Tablet 1000 MG PO (21:10)
[2025-02-24] MEDS: Atorvastatin Calcium 20 MG Tablet PO (21:10)
--- NOTE | 2025-02-24 21:19 | CASEMGMT ---
Care Management Face to Face with patient for initial transition planning/care coordination assessment in the ED.? This advertising writer introduced self and role at [facility]. Patient was confused and unable to participate in assessment. Son was present and able to answer questions.? Care providers, pharmacy, and demographics verified. Admitting Diagnosis:? ankle ulcer Other diagnosis history: ?diabetes, afib PCP: ?Francisco Javier Specialists: ?Wound clinic Preferred Pharmacy: [facility] Insurance: ?Medicare Prescription Benefit: ?Yes Living Will/HPOA: ?no LNOK: Quentin Alba Living Arrangements: ?Patient lives with son in a ranch home.? Son states up until 3 days ago, patient was able to walk and use the bathroom on her own. In the last three days, son has been helping with ADL care, patient is incontinent.? Transportation: Son drives DME: walker, wheelchair, shower bench, raised toilet seat. HHC: ?[facility].? Has been providing PT 1 x per week, Nurse 1 x per week, Aide 2 x per week.? SNF/Rehab:? none Community Resources: ?none Behavioral Health History: ?anxiety Patient goals: ?Discharge goals are uncertain at this time. Disposition Plan: admission to acute; RN CM/SW to follow for discharge planning needs that may arise. Jil Webber, CONVICT GUARD, DYE HOUSE VAT WORKER
[2025-02-24] MEDS: LORazepam 0.5 MG Tablet PO (21:25)
[2025-02-24 22:28] LABS: Bedside Glucose 130 mg/dL (74-106)
[2025-02-25] MEDS: Vancomycin IV 500 MG/100 ML BAG 100 MG IV ×2 (01:06→14:51)
[2025-02-25] MEDS: Morphine 2 MG/ML Syringe IV ×3 (01:06→10:55)
[2025-02-25 02:42] VITALS: BP 110/57; PULSE 81; RESP 18; TEMP 36.6; O2SAT 92
[2025-02-25] MEDS: hydrOXYzine 50 MG/ML Vial 100 MG IM (02:58)
[2025-02-25] MEDS: 0.9% Normal Saline (1000mL) 1,000 ML 150 ML IV ×3 (04:58→18:45)
[2025-02-25] MEDS: Piperacil/Tazobactam 3.375 GM in 0.9% Normal Saline (50mL MB+) 50 ML IV ×3 (04:58→21:48)
[2025-02-25 06:29] LABS: Absolute Lymphocyte Count 1.18 X10^3/uL (0.83-4.51); Absolute Neutrophil Count 12.8 X10^3/uL (2.0-7.7); Basophil# 0.02 X10^3/uL; Basophil% 0.1 % (0-1); Eosinophil# 0.01 X10^3/uL; Eosinophils% 0.1 % (0-5); Hematocrit 29.6 % (37-47); Hemoglobin 9.1 g/dL (12.0-15.0); Lymphocyte # 1.18 X10^3/ul (0.83-4.51); Lymphocyte % 7.5 % (19-41); Mean Corp Hgb Conc 30.7 g/dL (32-36); Mean Corpuscular Hgb 26.8 pg (27.0-32.0); Mean Corpuscular Volume 87.1 fL (81-99); Mean Platelet Vol. 10.6 fl (6.2-12.0); Monocyte# 1.55 X10^3/uL; Monocyte% 9.9 % (0-10); NRBC Flagged by Analyzer 0 % (0-5); Neutrophil # 12.83 X10^3/uL (2.7-7.7); Neutrophil % 81.8 % (47-70); POSITIVE DIFFERENTIAL YES; Platelet Count 207 K/mm3 (150-450); RBC Distribution Width CV 17.2 % (11.6-14.6); RBC Distribution Width SD 54.6 fl (35.1-43.9); White Blood Count 15.7 K/mm3 (4.4-11.0)
[2025-02-25 06:40] LABS: Differential Indicated SCAN CRITERIA MET
[2025-02-25] MEDS: Nystatin Powder 15gm Bottle 1 APPLIC TOPICAL ×3 (06:40→20:01)
[2025-02-25 06:43] LABS: International Normalized Ratio 1.2; Prothrombin Time (Protime)PT. 15.4 SECONDS (11.7-14.9)
[2025-02-25 06:55] LABS: Anion Gap 8 (5-15); BUN 15 mg/dL (4-19); BUN/Creat Ratio 30.1 RATIO (10-20); Calcium,Total 7.2 mg/dL (7.6-11.0); Carbon Dioxide 24.6 mmol/L (21.0-32.0); Chloride 108 mmol/L (98-108); Creatinine, Serum 0.48 mg/dL (0.70-1.20); EST Glomerular Filtration Rate 90 (>60); Glucose 137 mg/dL (70-99); Potassium 2.9 mmol/L (3.3-5.1); Sodium Level 141 mmol/L (133-145)
[2025-02-25 07:05] LABS: Bedside Glucose 124 mg/dL (74-106)
--- NOTE | 2025-02-25 07:09 | PN.HOSP_ITS ---
Reason for Visit Reason for Visit: Diagnoses Other specified diabetes mellitus with diabetic peripheral angiopathy without gangrene (02/24/25) Cellulitis of right lower limb (02/24/25) 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 (02/24/25) Non-pressure chronic ulcer of right ankle with fat layer exposed (02/24/25) Non-pressure chronic ulcer of right ankle with necrosis of muscle (02/24/25) Non-pressure chronic ulcer of left ankle with fat layer exposed (02/24/25) Pain in right foot (02/24/25) Pain in left foot (02/24/25) Localized edema (02/24/25) Subjective Subjective Extremely agitated. Objective Data Objective Data Vital Signs: Vital Signs Temp Pulse Resp BP Pulse Ox O2 Del Method 36.6 C 81 18 110/57 L 92 Room Air 02/25/25 02:42 02/25/25 02:42 02/25/25 02:42 02/25/25 02:42 02/25/25 02:42 02/25/25 02:42 Oxygen Delivery Method Room Air Weight: 63.707 kg Body Mass Index (BMI) 23.3 Intake & Output: Intake and Output for Last 24 Hours 02/23/25 02/24/25 02/25/25 23:59 23:59 23:59 Intake Total 1880 / 1880 1150 / 1150 Output Total 875 / 875 400 / 400 Balance 1005 / 1005 750 / 750 Lab / Micro Data 02/25/25 06:01 02/25/25 06:01 Labs: Laboratory Results - last 24 hr 02/24/25 12:10: WBC 14.2 H, RBC 3.72 L, Hgb 10.3 L, Hct 32.3 L, MCV 86.8, MCH 27.7, MCHC 31.9 L, RDW Std Deviation 54.4 H, RDW Coeff of Taty 17.0 H, Plt Count 236, MPV 11.1, Immature Gran % (Auto) 0.500, Neut % (Auto) 81.9 H, Lymph % (Auto) 8.6 L, [place] % (Auto) 8.8, Eos % (Auto) 0.1, Baso % (Auto) 0.1, Absolute Neuts (auto) 11.7 H, Absolute Lymphs (auto) 1.22, Nucleated RBC % 0, PT 15.4 H, INR 1.2, APTT 28.8, Sodium 139, Potassium 2.8 L, Chloride 100, Carbon Dioxide 27.5, Anion Gap 11, BUN 24 H, Creatinine 0.64 L, Estim Creat Clear Calc 42.90 L, Est GFR (MDRD) Non-Af 84, BUN/Creatinine Ratio 36.9 H, Glucose 193 H, Lactic Acid 1.9, Calcium 8.0, Total Bilirubin 0.59, AST 16, ALT 10, Alkaline Phosphatase 98, Total Protein 6.3, Albumin 2.7 L, Globulin 3.6, Albumin/Globulin Ratio 0.7 L 02/24/25 12:35: Urine Color Yellow, Urine Clarity Sl. Cloudy, Urine pH 6.0, Ur Specific [place] 1.015, Urine Protein 30 H, Urine Glucose (UA) 1000 H, Urine Ketones Negative, Urine Occult Blood Negative, Urine Nitrite Negative, Urine Bilirubin Negative, Urine Urobilinogen Normal, Ur Leukocyte Esterase 25 H, Urine RBC 0 SEEN, Urine WBC 0-5 SEEN, Ur Squamous Epith Cells 0-5 SEEN, Urine Bacteria 0 SEEN, Urine Mucus 0 SEEN 02/24/25 15:00: Sodium 140, Potassium 3.0 L, Chloride 104, Carbon Dioxide 26.0, Anion Gap 10, BUN 21 H, Creatinine 0.58 L, Estim Creat Clear Calc 42.90 L, Est GFR (MDRD) Non-Af 86, BUN/Creatinine Ratio 35.9 H, Glucose 125 H, Calcium 7.5 L, Magnesium 1.3 L 02/24/25 17:46: POC Glucose 131 H 02/24/25 20:53: POC Glucose 130 H 02/25/25 06:01: WBC 15.7 H, RBC 3.40 L, Hgb 9.1 L, Hct 29.6 L, MCV 87.1, MCH 26.8 L, MCHC 30.7 L, RDW Std Deviation 54.6 H, RDW Coeff of Taty 17.2 H, Plt Count 207, MPV 10.6, Immature Gran % (Auto) 0.600, Neut % (Auto) 81.8 H, Lymph % (Auto) 7.5 L, [place] % (Auto) 9.9, Eos % (Auto) 0.1, Baso % (Auto) 0.1, Absolute Neuts (auto) 12.8 H, Absolute Lymphs (auto) 1.18, Nucleated RBC % 0, PT 15.4 H, INR 1.2, Sodium 141, Potassium 2.9 L, Chloride 108, Carbon Dioxide 24.6, Anion Gap 8, BUN 15, Creatinine 0.48 L, Estim Creat Clear Calc 42.90 L, Est GFR (MDRD) Non-Af 90, BUN/Creatinine Ratio 30.1 H, Glucose 137 H, Calcium 7.2 L 02/25/25 06:40: POC Glucose 124 H Radiography Diagnostic Testing: Radiology Impression Ankle X-Ray 02/24/25 12:06 IMPRESSION: Moderate arterial calcifications are seen. On the lateral view, no ankle joint effusion is seen. Mild inferior calcaneal spurring is noted. Mild degenerative changes are seen of the midfoot. The Achilles tendon is incompletely visualized due to overlying densities, but no evidence of abnormal contour or retrocalcaneal bursal fluid collection is seen. Mild left ankle joint degenerative changes are seen, most prominent medially. No definite joint narrowing is seen. No evidence of talar dome osteonecrosis or osteochondral fracture. No acute fracture or dislocation is seen. If clinical concern persists, short-term follow-up imaging may be obtained to rule out a currently occult fracture. Reading Location: [address] Ankle X-Ray 02/24/25 12:06 IMPRESSION: Soft tissue deformity along the posterior foot/lower ankle without discrete gas or radiopaque foreign body. Reading Location: [facility] Chest X-Ray 02/24/25 12:06 IMPRESSION: A calcified and tortuous aorta is noted. An aortic stent graft is noted. No evidence of cardiomegaly. Lungs appear clear throughout. No pleural effusion or pneumothorax is evident. Degenerative changes are seen of the bilateral acromioclavicular joints as well as ([id number]) glenohumeral joints. No acute osseous process is seen. Reading Location: [address] Venous Doppler Study 02/24/25 12:06 Interpretation Summary Deep veins of the bilateral lower extremities are patent and compressible segmentally. There is no evidence of bilateral lower extremity deep vein thrombosis. The bilateral great saphenous veins appear patent and compressible segmentally. Technically difficult study due to patient positioning and intolerance to compressions. Ordering Physician: Vinay Cortez Referring Physician: Angel Drake MD Performed By: Lillian Espitia RVT Physical Exam Const Constitutional Narrative: agitated. confused. spitting out ice cream. HEENT head/scalp atraumatic Neuro moves all extremities Sensorium / Orientation: awake; Negative for oriented to person, oriented to place or oriented to time Psych Mood & Affect: anxious Assessment & Plan Assessment/Plan (1) Non-pressure chronic ulcer of right ankle with necrosis of muscle: PLAN: Exposed right Achilles tendon. Pt had been previously seen wound care, but apparently, wound worsened 2-days prior to admission. Podiatry consulted. Current plan is conservative mgmt with wound care and antibiotics. Abx with pip/tazo and vancomycin. Follow up culture Consult ID for long-term antibiotics. Duplex negative of LE. ABIs pending. (2) Hypokalemia: PLAN: Along with hypomagnesemia. Previously replaced (along with magnesium) Continue to replace (3) Encephalopathy: PLAN: concern for metabolic given underlying infection as well as medications. DC potentiating medications including morphine. PRN haloperidol. Quetiapine QHS. PLAN: Plan DM2: on SSI. GERD: PPI VTE prophylaxis: SCDs. Charges/Coding Visit Charges Inpatient E&M: 03233 Subs Hosp L2
[2025-02-25 07:38] LABS: Ovalocyte 1+; Platelet Estimate A (ADEQ); Polychromasia 1+
[2025-02-25] MEDS: DAKIN'S SOL HALF STRENGTH (=0.25%) TOPICAL (07:50)
[2025-02-25 08:03] VITALS: BMI 24.7
--- NOTE | 2025-02-25 08:15 | WOUNDNOTE ---
wound photo: right medial lower leg
[2025-02-25 08:16] VITALS: PULSE 101; RESP 18; O2SAT 92
--- NOTE | 2025-02-25 08:17 | WOUNDNOTE ---
wound photo: left lower leg/foot
--- NOTE | 2025-02-25 08:17 | WOUNDNOTE ---
wound photo: left posterior lower leg/Achilles area
--- NOTE | 2025-02-25 08:19 | WOUNDNOTE ---
wound photo: right Achilles
--- NOTE | 2025-02-25 08:20 | WOUNDNOTE ---
wound photo: right lateral lower leg/dorsal foot
--- NOTE | 2025-02-25 10:03 | CON.PCM.ID_ITS ---
Assessment & Plan Assessment/Plan (1) Infected open wound: PLAN: Tendon exposed. Podiatry following. Wound cx pending. Cont empiric vanc/zosyn. Will follow, thank you (2) Cellulitis of right lower limb: HPI Consult Data Date of Consult: 02/25/25 HPI Narrative Reason for Consultation: deep wound infection HPI Narrative: REAGAN INMAN, is a 89 F with DM, htn, presented with acute worsening of R ankle wound with odor, drainage, redness, and pain. No fever or chills. Seen at wound center, sent to ED. Admitted on vanc/zosyn. History obtained from son at bedside. Pt unable to provide history or ROS due to mental status. [facility] Medical History Anxiety Diabetes Former smoker Atrial fibrillation Neurofibroma of head GERD (gastroesophageal reflux disease) Uncontrolled diabetes mellitus with hyperglycemia, without long-term current use of insulin Home Medications ?Medication ?Instructions ?Recorded ?Last Taken ?Type simvastatin 40 mg tablet 40 mg PO QHS CHOLESTROL 11/02 01/17 Unknown History esomeprazole magnesium 40 mg 40 mg PO DAILY ACID REFLU X 05/05/24 Unknown History capsule,delayed release metoprolol tartrate 50 mg tablet 50 mg PO BID BP 05/05 Unknown History dapagliflozin propanediol 10 mg 10 mg PO QAM DIABETES #90 tabs 06/02/24 Unknown Rx tablet (Farxiga) blood sugar diagnostic (OneTouch #100 ea 06/09/24 Unkn own Rx Ultra Test strips) furosemide 40 mg tablet 20 mg PO DAILY WATER PILL Unknown History sitagliptin phosphate 50 1 tab PO BIDCM DIABETES #90 tabs 10/27/24 Unknown Rx mg-metformin 1,000 mg tablet (Janumet) alprazolam 0.5 mg tablet 0.5 mg PO QHS PRN anxiety Unknown History cyanocobalamin (vitamin B-12) 1,000 mcg PO DAILY SUPPL EMENT 02/24/25 Unknown History 1,000 mcg tablet (Vitamin B-12) nystatin 100,000 unit/gram topical 1 applic topical DA KEATON ANTIFUNGAL 02/24/25 Unknown History powder (Nystop) Allergy/AdvReac Type Severity Reaction Status Date / Time No Known Allergies Allergy Verified 02/24/25 11:47 Family History no significant family his Surgical History (Updated 02/24/25 @ 15:43 by Leonila Devries) History of cholecystectomy Heart valve replaced Aortic valve replaced Hx of cataract extraction Social History Smoking Status: Former smoker Physical Exam Const no apparent distress General Appearance: lethargic HEENT normocephalic and head/scalp atraumatic Eyes PERRL Neck supple Resp normal air movement and clear to auscultation bilaterally Cardio regular rate and regular rhythm GI soft to palpation, non-tender and non-distended Extremity General Extremity: edema Skin Skin Narrative: BLE wrapped Neuro CN's II-XII intact bilaterally Lab / Micro Data Attestation: I reviewed the patient's lab results. 02/25/25 06:01 02/25/25 06:01 Labs: Laboratory Results - last 24 hr 02/24/25 12:10: WBC 14.2 H, RBC 3.72 L, Hgb 10.3 L, Hct 32.3 L, MCV 86.8, MCH 27.7, MCHC 31.9 L, RDW Std Deviation 54.4 H, RDW Coeff of Taty 17.0 H, Plt Count 236, MPV 11.1, Immature Gran % (Auto) 0.500, Neut % (Auto) 81.9 H, Lymph % (Auto) 8.6 L, [place] % (Auto) 8.8, Eos % (Auto) 0.1, Baso % (Auto) 0.1, Absolute Neuts (auto) 11.7 H, Absolute Lymphs (auto) 1.22, Nucleated RBC % 0, PT 15.4 H, INR 1.2, APTT 28.8, Sodium 139, Potassium 2.8 L, Chloride 100, Carbon Dioxide 27.5, Anion Gap 11, BUN 24 H, Creatinine 0.64 L, Estim Creat Clear Calc 42.90 L, Est GFR (MDRD) Non-Af 84, BUN/Creatinine Ratio 36.9 H, Glucose 193 H, Lactic Acid 1.9, Calcium 8.0, Total Bilirubin 0.59, AST 16, ALT 10, Alkaline Phosphatase 98, Total Protein 6.3, Albumin 2.7 L, Globulin 3.6, Albumin/Globulin Ratio 0.7 L 02/24/25 12:35: Urine Color Yellow, Urine Clarity Sl. Cloudy, Urine pH 6.0, Ur Specific [place] 1.015, Urine Protein 30 H, Urine Glucose (UA) 1000 H, Urine Ketones Negative, Urine Occult Blood Negative, Urine Nitrite Negative, Urine Bilirubin Negative, Urine Urobilinogen Normal, Ur Leukocyte Esterase 25 H, Urine RBC 0 SEEN, Urine WBC 0-5 SEEN, Ur Squamous Epith Cells 0-5 SEEN, Urine Bacteria 0 SEEN, Urine Mucus 0 SEEN 02/24/25 15:00: Sodium 140, Potassium 3.0 L, Chloride 104, Carbon Dioxide 26.0, Anion Gap 10, BUN 21 H, Creatinine 0.58 L, Estim Creat Clear Calc 42.90 L, Est GFR (MDRD) Non-Af 86, BUN/Creatinine Ratio 35.9 H, Glucose 125 H, Calcium 7.5 L, Magnesium 1.3 L 02/24/25 17:46: POC Glucose 131 H 02/24/25 20:53: POC Glucose 130 H 02/25/25 06:01: WBC 15.7 H, RBC 3.40 L, Hgb 9.1 L, Hct 29.6 L, MCV 87.1, MCH 26.8 L, MCHC 30.7 L, RDW Std Deviation 54.6 H, RDW Coeff of Taty 17.2 H, Plt Count 207, MPV 10.6, Immature Gran % (Auto) 0.600, Neut % (Auto) 81.8 H, Lymph % (Auto) 7.5 L, [place] % (Auto) 9.9, Eos % (Auto) 0.1, Baso % (Auto) 0.1, Absolute Neuts (auto) 12.8 H, Absolute Lymphs (auto) 1.18, Nucleated RBC % 0, Diff Path Review April, Platelet Estimate A, Polychromasia 1+, Ovalocytes 1+, PT 15.4 H , INR 1.2, Sodium 141, Potassium 2.9 L, Chloride 108, Carbon Dioxide 24.6, Anion Gap 8, BUN 15, Creatinine 0.48 L, Estim Creat Clear Calc 42.90 L, Est GFR (MDRD) Non-Af 90, BUN/Creatinine Ratio 30.1 H, Glucose 137 H, Calcium 7.2 L 02/25/25 06:40: POC Glucose 124 H Imaging Radiology Impression Ankle X-Ray 02/24/25 12:06 IMPRESSION: Moderate arterial calcifications are seen. On the lateral view, no ankle joint effusion is seen. Mild inferior calcaneal spurring is noted. Mild degenerative changes are seen of the midfoot. The Achilles tendon is incompletely visualized due to overlying densities, but no evidence of abnormal contour or retrocalcaneal bursal fluid collection is seen. Mild left ankle joint degenerative changes are seen, most prominent medially. No definite joint narrowing is seen. No evidence of talar dome osteonecrosis or osteochondral fracture. No acute fracture or dislocation is seen. If clinical concern persists, short-term follow-up imaging may be obtained to rule out a currently occult fracture. Reading Location: [id number] Ankle X-Ray 02/24/25 12:06 IMPRESSION: Soft tissue deformity along the posterior foot/lower ankle without discrete gas or radiopaque foreign body. Reading Location: [facility] Chest X-Ray 02/24/25 12:06 IMPRESSION: A calcified and tortuous aorta is noted. An aortic stent graft is noted. No evidence of cardiomegaly. Lungs appear clear throughout. No pleural effusion or pneumothorax is evident. Degenerative changes are seen of the bilateral acromioclavicular joints as well as ([id number]) glenohumeral joints. No acute osseous process is seen. Reading Location: [id number] Venous Doppler Study 02/24/25 12:06 Interpretation Summary Deep veins of the bilateral lower extremities are patent and compressible segmentally. There is no evidence of bilateral lower extremity deep vein thrombosis. The bilateral great saphenous veins appear patent and compressible segmentally. Technically difficult study due to patient positioning and intolerance to compressions. Ordering Physician: Vinay Cortez Referring Physician: Angel Drake MD Performed By: Lillian Espitia RVT
[2025-02-25 10:42] VITALS: PULSE 101
[2025-02-25] MEDS: Metoprolol Tartrate 50 MG Tablet PO ×2 (10:42→19:54)
[2025-02-25] MEDS: Pantoprazole Sodium 40 MG Tablet PO (10:42)
[2025-02-25] MEDS: Senna/Docusate Sodium 1 Tablet 2 TABLET PO ×2 (10:43→19:54)
[2025-02-25] MEDS: Potassium Chloride Oral Tablet 20 MEQ 40 MEQ PO (10:45)
[2025-02-25] MEDS: Haloperidol Lactate 5 MG/ML Vial 1 MG IV ×2 (11:46→15:46)
--- NOTE | 2025-02-25 11:55 | CASEMGMT ---
Discharge Planning Confirmation rec'd from [facility] that pt is active and receives SN/PT/[employer]. RN CM updated. Hope Reeder DC Planning Asst.
--- NOTE | 2025-02-25 13:15 | CT_ITS ---
PROCEDURE: BRAIN/HEAD WITHOUT CONTRAST 02/25/2025 REASON FOR EXAM: CONFUSION TECHNIQUE: Head CT without intravenous contrast. Coronal and Sagittal reconstruction series were provided. One or more dose reduction techniques were used (e.g., Automated exposure control, adjustment of the mA and/or kV according to patient size, use of iterative reconstruction technique. COMPARISON: None FINDINGS: No acute intracranial hemorrhage. No loss of godfrey-white differentiation.Mild scattered foci of deep white matter hypoattenuation, which is nonspecific, but most commonly related to chronic ischemic microangiopathy.The sulci are mildly prominent consistent with mild parenchymal volume loss. The osseous structures are unremarkable. Multiple partially calcified subcutaneous nodules are present of the scalp. Mild mucosal thickening is present in the right maxillary sinus. CT/Brain/Head without Contrast IMPRESSION: 1. No acute intracranial abnormality. 2. Age-related atrophy and minimal chronic deep white matter disease. Reading Location: [facility]
[2025-02-25 13:21] LABS: Bedside Glucose 118 mg/dL (74-106)
[2025-02-25] MEDS: Menthol/Lanolin/Calamine/Znox 113 GM Tube 1 APPLIC TOPICAL ×2 (14:55→20:01)
[2025-02-25 15:14] LABS: Ammonia 31.3 umol/L (11-51)
--- NOTE | 2025-02-25 16:42 | PN_ITS ---
Subjective Subjective Patient seen today, she is sleeping in bed. Patient had noninvasive lower extremity study today but unable to tolerate cuffs. Objective Data Objective Data Vital Signs: Vital Signs Temp Pulse Resp BP Pulse Ox O2 Del Method 97.9 F 101 H 18 110/57 L 92 Room Air 02/25/25 02:42 02/25/25 10:42 02/25/25 08:16 02/25/25 02:42 02/25/25 08:16 02/25/25 08:16 Oxygen Delivery Method Room Air Weight: 67.358 kg Body Mass Index (BMI) 24.7 Intake & Output: Intake and Output for Last 24 Hours 02/23/25 02/24/25 02/25/25 23:59 23:59 23:59 Intake Total 1880 / 1880 2200 / 2200 Output Total 875 / 875 400 / 400 Balance 1005 / 1005 1800 / 1800 Lab / Micro Data 02/25/25 06:01 02/25/25 06:01 Labs: Laboratory Results - last 24 hr 02/24/25 17:46: POC Glucose 131 H 02/24/25 20:53: POC Glucose 130 H 02/25/25 06:01: WBC 15.7 H, RBC 3.40 L, Hgb 9.1 L, Hct 29.6 L, MCV 87.1, MCH 26.8 L, MCHC 30.7 L, RDW Std Deviation 54.6 H, RDW Coeff of Taty 17.2 H, Plt Count 207, MPV 10.6, Immature Gran % (Auto) 0.600, Neut % (Auto) 81.8 H, Lymph % (Auto) 7.5 L, [place] % (Auto) 9.9, Eos % (Auto) 0.1, Baso % (Auto) 0.1, Absolute Neuts (auto) 12.8 H, Absolute Lymphs (auto) 1.18, Nucleated RBC % 0, Diff Path Review April, Platelet Estimate A, Polychromasia 1+, Ovalocytes 1+, PT 15.4 H , INR 1.2, Sodium 141, Potassium 2.9 L, Chloride 108, Carbon Dioxide 24.6, Anion Gap 8, BUN 15, Creatinine 0.48 L, Estim Creat Clear Calc 42.90 L, Est GFR (MDRD) Non-Af 90, BUN/Creatinine Ratio 30.1 H, Glucose 137 H, Calcium 7.2 L 02/25/25 06:40: POC Glucose 124 H 02/25/25 12:20: POC Glucose 118 H 02/25/25 14:35: Ammonia 31.3 Micro: Microbiology 02/24/25 12:30 Wound Abcess - Ankle Wound Culture - Preliminary Radiography Diagnostic Testing: Radiology Impression Ankle X-Ray 02/24/25 12:06 IMPRESSION: Soft tissue deformity along the posterior foot/lower ankle without discrete gas or radiopaque foreign body. Reading Location: [facility] Brain CT 02/25/25 13:15 IMPRESSION: 1. No acute intracranial abnormality. 2. Age-related atrophy and minimal chronic deep white matter disease. Reading Location: [facility] Physical Exam Const no apparent distress Constitutional Narrative: Bilateral ankles bandaged, reviewed wound photos. Assessment & Plan Assessment/Plan (1) Non-pressure chronic ulcer of right ankle with necrosis of muscle: (2) Non-pressure chronic ulcer of right ankle with fat layer exposed: (3) Non-pressure chronic ulcer of left ankle with fat layer exposed: (4) Cellulitis of right lower limb: (5) Edema, lower extremity: (6) Peripheral vascular disease due to secondary diabetes: PLAN: Plan Evaluation performed. Reviewed patient's chart and diagnostic data. Bilateral ankle xrays with no evidence of gas. WBC is elevated. A culture wound right ankle has been obtained and results are pending. Patient on is IV antibiotics Vancomycin and Zosyn. Infectious Disease on consult. A noninvasive lower extremity arterial study has been ordered for further evaluation - unable to tolerated cuffs, monophasic waveforms noted - vascular surgery consulted. Wound care: Bilateral ankle wounds: apply wet to dry gauze with 1/2 strength dakin's solution topically to wounds and cover with abd pad and kerlix - change BID, and keep wounds offloaded at all times. Pain management: per hospital medicine Podiatry will continue to follow.
[2025-02-25 17:30] LABS: Bedside Glucose 137 mg/dL (74-106)
[2025-02-25] MEDS: Haloperidol Lactate 5 MG/ML Vial 1 MG IM ×2 (18:41→22:56)
[2025-02-25 19:52] VITALS: BP 156/116; PULSE 117; RESP 18; TEMP 36.9; O2SAT 92
[2025-02-25] MEDS: QUEtiapine 25 MG Tablet 50 MG PO (19:53)
[2025-02-25 19:54] VITALS: BP 156/116; PULSE 117
[2025-02-25] MEDS: Acetaminophen 500 MG Tablet 1000 MG PO (19:54)
[2025-02-25] MEDS: Atorvastatin Calcium 20 MG Tablet PO (19:54)
[2025-02-25] MEDS: MELATONIN 3 MG TABLET PO (20:00)
[2025-02-25 22:09] LABS: Bedside Glucose 153 mg/dL (74-106)
[2025-02-26] MEDS: 0.9% Normal Saline (1000mL) 1,000 ML 150 ML IV ×3 (00:57→16:09)
[2025-02-26 02:02] LABS: Vancomycin, Trough Level 7.8 ug/mL (5.0-15.0)
--- NOTE | 2025-02-26 02:11 | PCM.RX.CS ---
Consult Antibiotic Management Pharmacy has been consulted to manage selected antibiotic: Vancomycin Type of Intervention Type of Consult: Follow-up Suspected Infection Suspected Infection: Skin/Soft tissue Labs Labs: Sodium 141 mmol/L (133-145) 02/25/25 06:01 Potassium 2.9 mmol/L (3.3-5.1) L 02/25/25 06:01 Chloride 108 mmol/L (98-108) 02/25/25 06:01 Carbon Dioxide 24.6 mmol/L (21.0-32.0) 02/25/25 06:01 Anion Gap 8 (5-15) 02/25/25 06:01 BUN 15 mg/dL (4-19) 02/25/25 06:01 Creatinine 0.48 mg/dL (0.70-1.20) L 02/25/25 06:01 Est GFR (MDRD) Non-Af 90 (>60) 02/25/25 06:01 BUN/Creatinine Ratio 30.1 RATIO (10-20) H 02/25/25 06:01 Glucose 137 mg/dL (70-99) H 02/25/25 06:01 Vancomycin Trough 7.8 ug/mL (5.0-15.0) 02/26/25 00:55 Microbiology Microbiology: Microbiology 02/24/25 12:30 Wound Abcess - Ankle Gram Stain - Final Goal Trough Goal Trough: 15-20 mcg/mL Pharmacy Plan for Drug Dosing Pharmacy Plan for Drug Dosing: VANCOMYCIN LEVEL RECEIVED Current Vancomycin Dose: 500mg Q12H Number of Doses Received: 500mg x2, 1500mg x1 Vancomycin Level: 7.8 Hours Since Last Dose: 10 Renal Function: sCr 0.48 Renal Function Trend: stable Lab/Micro: wound cx pending Vancomycin Plan/Comments: Increase Vancomycin dosing regimen to 750mg Q12H Pending Level: Vancomycin trough @ 14:30 02/27/25 Pharmacy Service will continue to monitor and adjust dosing as required. Follow-Up Labs Follow-Up Labs: Trough: Vancomycin (02/27/25 @ 14:30)
[2025-02-26 02:53] VITALS: BP 130/63; PULSE 78; RESP 18; TEMP 36.4; O2SAT 93
[2025-02-26] MEDS: Vancomycin HCl 750 MG in 0.9% Normal Saline (250mL Bag) 250 ML 250 MG IV ×2 (02:55→15:46)
[2025-02-26] MEDS: Haloperidol Lactate 5 MG/ML Vial 1 MG IM ×3 (04:50→20:20)
[2025-02-26] MEDS: Piperacil/Tazobactam 3.375 GM in 0.9% Normal Saline (50mL MB+) 50 ML IV ×2 (05:36→16:08)
[2025-02-26] MEDS: Nystatin Powder 15gm Bottle 1 APPLIC TOPICAL ×3 (05:37→20:25)
[2025-02-26 06:00] VITALS: BMI 24.7
[2025-02-26 06:06] LABS: Absolute Lymphocyte Count 1.85 X10^3/uL (0.83-4.51); Absolute Neutrophil Count 10.8 X10^3/uL (2.0-7.7); Basophil# 0.02 X10^3/uL; Basophil% 0.1 % (0-1); Eosinophil# 0.02 X10^3/uL; Eosinophils% 0.1 % (0-5); Hematocrit 32.1 % (37-47); Hemoglobin 9.6 g/dL (12.0-15.0); Lymphocyte # 1.85 X10^3/ul (0.83-4.51); Lymphocyte % 13.5 % (19-41); Mean Corp Hgb Conc 29.9 g/dL (32-36); Mean Corpuscular Hgb 27.4 pg (27.0-32.0); Mean Corpuscular Volume 91.7 fL (81-99); Mean Platelet Vol. 10.4 fl (6.2-12.0); Monocyte# 0.97 X10^3/uL; Monocyte% 7.1 % (0-10); NRBC Flagged by Analyzer 0 % (0-5); Neutrophil # 10.76 X10^3/uL (2.7-7.7); Neutrophil % 78.6 % (47-70); Platelet Count 186 K/mm3 (150-450); RBC Distribution Width CV 17.5 % (11.6-14.6); RBC Distribution Width SD 58.2 fl (35.1-43.9); White Blood Count 13.7 K/mm3 (4.4-11.0)
--- NOTE | 2025-02-26 06:42 | PCM.PN.HOSP ---
Reason for Visit Reason for Visit: Diagnoses Other specified diabetes mellitus with diabetic peripheral angiopathy without gangrene (02/24/25) Hypokalemia (02/24/25) Encephalopathy, unspecified (02/24/25) Cellulitis of right lower limb (02/24/25) Local infection of the skin and subcutaneous tissue, unspecified (02/24/25) 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 (02/24/25) Non-pressure chronic ulcer of right ankle with fat layer exposed (02/24/25) Non-pressure chronic ulcer of right ankle with necrosis of muscle (02/24/25) Non-pressure chronic ulcer of left ankle with fat layer exposed (02/24/25) Pain in right foot (02/24/25) Pain in left foot (02/24/25) Localized edema (02/24/25) Other injury of unspecified body region, initial encounter (02/24/25) Subjective Subjective Has been agitated, but less so today. Objective Data Objective Data Vital Signs: Vital Signs Temp Pulse Resp BP Pulse Ox O2 Del Method 36.4 C L 78 18 130/63 H 93 Room Air 02/26/25 02:53 02/26/25 02:53 02/26/25 02:53 02/26/25 02:53 02/26/25 02:53 02/26/25 02:55 Oxygen Delivery Method Room Air Weight: 67.35 kg Body Mass Index (BMI) 24.7 Intake & Output: Intake and Output for Last 24 Hours 02/24/25 02/25/25 02/26/25 23:59 23:59 23:59 Intake Total 1880 / 1880 3350 / 3350 1245 / 1245 Output Total 875 / 875 1100 / 1100 250 / 250 Balance 1005 / 1005 2250 / 2250 995 / 995 Lab / Micro Data 02/26/25 05:31 02/26/25 05:31 Labs: Laboratory Results - last 24 hr 02/25/25 06:01: Diff Path Review April foll, Platelet Estimate A, Polychromasia 1+, Ovalocytes 1+, PT 15.4 H, INR 1.2, Sodium 141, Potassium 2.9 L, Chloride 108, Carbon Dioxide 24.6, Anion Gap 8, BUN 15, Creatinine 0.48 L, Estim Creat Clear Calc 42.90 L, Est GFR (MDRD) Non-Af 90, BUN/Creatinine Ratio 30.1 H, Glucose 137 H, Calcium 7.2 L 02/25/25 06:40: POC Glucose 124 H 02/25/25 12:20: POC Glucose 118 H 02/25/25 14:35: Ammonia 31.3 02/25/25 17:12: POC Glucose 137 H 02/25/25 21:47: POC Glucose 153 H 02/26/25 00:55: Vancomycin Trough 7.8 02/26/25 05:31: WBC 13.7 H, RBC 3.50 L, Hgb 9.6 L, Hct 32.1 L, MCV 91.7 D, MCH 27.4, MCHC 29.9 L, RDW Std Deviation 58.2 H, RDW Coeff of Taty 17.5 H, Plt Count 186, MPV 10.4, Immature Gran % (Auto) 0.600, Neut % (Auto) 78.6 H, Lymph % (Auto) 13.5 L, [place] % (Auto) 7.1, Eos % (Auto) 0.1, Baso % (Auto) 0.1, Absolute Neuts (auto) 10.8 H, Absolute Lymphs (auto) 1.85, Nucleated RBC % 0 Micro: Microbiology 02/24/25 12:30 Wound Abcess - Ankle Gram Stain - Final Radiography Diagnostic Testing: Radiology Impression Ankle Brachial Index 02/24/25 20:52 Interpretation Summary Limited study. Right SENAIT not obtained due to patient discomfort. Doppler waveforms of the right ankle severely diminished at rest. Left SENAIT not obtained due to patient discomfort. Doppler waveforms of the left ankle severely diminished at rest. Ordering Physician: Mark Awad Referring Physician: Tiara Mcintyre Performed By: Mary Ann Mathur RVT Brain CT 03/27/25 13:15 IMPRESSION: 1. No acute intracranial abnormality. 2. Age-related atrophy and minimal chronic deep white matter disease. Reading Location: [facility] Physical Exam Const alert and no apparent distress HEENT head/scalp atraumatic and moist oral mucous membranes Resp normal respiratory effort, no retractions, no use of accessory muscles and clear to auscultation bilaterally Cardio regular rate, regular rhythm, S1 normal heart sound and S2 normal heart sound GI normal to inspection, nondistended, normoactive bowel sounds, soft to palpation, non-tender and non-distended Assessment & Plan Assessment/Plan (1) Non-pressure chronic ulcer of right ankle with necrosis of muscle: PLAN: Exposed right Achilles tendon. Pt had been previously seen wound care, but apparently, wound worsened 2-days prior to admission. Podiatry consulted. Current plan is conservative mgmt with wound care and antibiotics. Abx with pip/tazo and vancomycin. Follow up culture Consult ID for long-term antibiotics. Duplex negative of LE. ABIs not performed due to discomfort. Doppler waveforms of right and left ankle severely diminished at rest. Vascular consulted. Tentative plan for CTA LE next week. (2) Hypokalemia: PLAN: Along with hypomagnesemia. Previously replaced (along with magnesium) Continue to replace (3) Encephalopathy: PLAN: concern for metabolic given underlying infection as well as medications. DC potentiating medications including morphine. PRN haloperidol. Quetiapine QHS. head CT negative for acute process. Prominent atrophy. Ammonia 31.3. PLAN: Plan DM2: on SSI. GERD: PPI VTE prophylaxis: SCDs. Charges/Coding Visit Charges Inpatient E&M: 38546 Subs Hosp L2
[2025-02-26 06:49] LABS: Bedside Glucose 119 mg/dL (74-106)
[2025-02-26 07:02] LABS: Anion Gap 13 (5-15); BUN 12 mg/dL (4-19); BUN/Creat Ratio 21.1 RATIO (10-20); Calcium,Total 7.5 mg/dL (7.6-11.0); Carbon Dioxide 17.5 mmol/L (21.0-32.0); Chloride 113 mmol/L (98-108); Creatinine, Serum 0.57 mg/dL (0.70-1.20); EST Glomerular Filtration Rate 87 (>60); Glucose 133 mg/dL (70-99); Potassium 3.3 mmol/L (3.3-5.1); Sodium Level 143 mmol/L (133-145)
--- NOTE | 2025-02-26 08:50 | EX.PCM.CON.S ---
Assessment & Plan Assessment/Plan (1) PAD (peripheral artery disease): (2) Non-pressure chronic ulcer of right ankle with necrosis of muscle: (3) Non-pressure chronic ulcer of right ankle with fat layer exposed: (4) Non-pressure chronic ulcer of left ankle with fat layer exposed: PLAN: Plan Arterial study suggestive of PAD; by my exam she has strong monophasic pedal doppler signals bilaterally. Would recommend further assessing with CTA runoff; however, with her current mental status I do not think she will be able to cooperate with imaging and feel it is unlikely we would get good images. I do not think she has acute ischemia. At present, she would not be able to cooperate for angiogram either and she is felt to be a high risk candidate for general anesthesia/open intervention. I think it would be best to continue to monitor for improvement in her mental status with antibiotic therapy and reconsider further vascular evaluation if or when her mental status improves. HPI Consult Data Date of Consult: 02/26/25 HPI Narrative HPI Narrative: REAGAN INMAN, is a 89 F who presented to the [facility] ER with worsening of her lower extremity wounds as well as increased confusion/deteriorating mental status. She was admitted with IV antibiotics. I saw patient this morning along side her nurse and wound care nurse Carly. Her nurse reported she'd had Haldol 1-2 hours prior to my exam. Patient was lying in bed agitated and restless. She could not be engaged in direct conversation, did not acknowledge any questions. She was undressing herself, pulling at her IV lines and the PATRICA wraps on her arms. She was frequently rubbing her legs against the bed and each other, frequently cross her lower legs/ankles. She was not able to participate in holding her legs still or adjusting position during dressing changes. I was not able to get any history from her. Per nursing, when her son was with her yesterday he noted that this is an acute decompensation of her mental status; at baseline she does have mild dementia. From chart review, she has a severe R posterior lower leg ulceration with exposed Achilles tendon as well as other scattered ulcerations in her bilateral lower legs. These ulcers reportedly first developed during an admission to [facility] after a fall at home at the end of December. She had been following at the wound center for these, but had acute worsening this week prompting her ER evaluation. Podiatry is planning for conservative wound care at this time as she is not felt to be a surgical candidate at this time. [facility] Medical History Anxiety Diabetes Former smoker Atrial fibrillation Neurofibroma of head GERD (gastroesophageal reflux disease) Uncontrolled diabetes mellitus with hyperglycemia, without long-term current use of insulin Home Medications ?Medication ?Instructions ?Recorded ?Last Taken ?Type simvastatin 40 mg tablet 40 mg PO QHS CHOLESTROL 11/22/16 Unknown History esomeprazole magnesium 40 mg 40 mg PO DAILY ACID REFLUX 05/05/24 Unknown History capsule,delayed release metoprolol tartrate 50 mg tablet 50 mg PO BID BP 05/05/24 Unknown History dapagliflozin propanediol 10 mg 10 mg PO QAM DIABETES #90 tabs 06/02/24 Unknown Rx tablet (Farxiga) blood sugar diagnostic (OneTouch #100 ea 06/09/24 Unknown Rx Ultra Test strips) furosemide 40 mg tablet 20 mg PO DAILY WATER PILL 09/08/24 Unknown History sitagliptin phosphate 50 1 tab PO BIDCM DIABETES #90 tabs 10/27/24 Unknown Rx mg-metformin 1,000 mg tablet (Janumet) alprazolam 0.5 mg tablet 0.5 mg PO QHS PRN anxiety 02/24/25 Unknown History cyanocobalamin (vitamin B-12) 1,000 mcg PO DAILY SUPPLEMENT 02/24/25 Unknown History 1,000 mcg tablet (Vitamin B-12) nystatin 100,000 unit/gram topical 1 applic topical DAILY ANTIFUNGAL 02/24/25 Unknown History powder (Nystop) Allergy/AdvReac Type Severity Reaction Status Date / Time No Known Allergies Allergy Verified 02/24/25 11:47 Family History no significant family his Surgical History (Updated 02/24/25 @ 15:43 by Leonila Devries) History of cholecystectomy Heart valve replaced Aortic valve replaced Hx of cataract extraction Social History Smoking Status: Former smoker Physical Exam Const alert Exam Limitations: altered mental status Extremity Extremity Narrative: L DP and PT with strong monophasic doppler signal R DP with strong monophasic doppler signal; unable to assess R PT pulse due to wound and patient movement Skin Wounds: wounds noted Wound Narrative: L anterior herzog ulceration with fibrous slough/eschar; ulceration over the L achilles area as well with thick slough overlying the base R medial herzog with large ulceration cluster with slough and maceration but visible granulation at the base; R posterior lower leg ulceration with exposed Achilles tendon, granulation about the edges of the ulceration Psych Attitude: agitated Lab / Micro Data 02/26/25 05:31 02/26/25 05:31 Labs: Laboratory Results - last 24 hr 02/25/25 12:20: POC Glucose 118 H 02/25/25 14:35: Ammonia 31.3 02/25/25 17:12: POC Glucose 137 H 02/25/25 21:47: POC Glucose 153 H 02/26/25 00:55: Vancomycin Trough 7.8 02/26/25 05:31: WBC 13.7 H, RBC 3.50 L, Hgb 9.6 L, Hct 32.1 L, MCV 91.7 D, MCH 27.4, MCHC 29.9 L, RDW Std Deviation 58.2 H, RDW Coeff of Taty 17.5 H, Plt Count 186, MPV 10.4, Immature Gran % (Auto) 0.600, Neut % (Auto) 78.6 H, Lymph % (Auto) 13.5 L, [place] % (Auto) 7.1, Eos % (Auto) 0.1, Baso % (Auto) 0.1, Absolute Neuts (auto) 10.8 H, Absolute Lymphs (auto) 1.85, Nucleated RBC % 0, Sodium 143, Potassium 3.3, Chloride 113 H, Carbon Dioxide 17.5 L, Anion Gap 13, BUN 12, Creatinine 0.57 L, Estim Creat Clear Calc 42.90 L, Est GFR (MDRD) Non-Af 87, BUN/Creatinine Ratio 21.1 H, Glucose 133 H, Calcium 7.5 L 02/26/25 06:29: POC Glucose 119 H Micro: Microbiology 02/24/25 12:20 Blood Culture (Wb) - Right Forearm Blood Culture - Preliminary No growth in 48 hours. 02/24/25 12:20 Blood Culture (Wb) - Left Wrist Blood Culture - Preliminary No growth in 48 hours. 02/24/25 12:30 Wound Abcess - Ankle Gram Stain - Final Imaging Radiology Impression Ankle Brachial Index 02/24/25 20:52 Interpretation Summary Limited study. Right SENAIT not obtained due to patient discomfort. Doppler waveforms of the right ankle severely diminished at rest. Left SENAIT not obtained due to patient discomfort. Doppler waveforms of the left ankle severely diminished at rest. Ordering Physician: Mark Awad Referring Physician: Tiara Mcintyre Performed By: Mary Ann Mathur RVT Brain CT 02/25/25 13:15 IMPRESSION: 1. No acute intracranial abnormality. 2. Age-related atrophy and minimal chronic deep white matter disease. Reading Location: [facility] Charges/Coding Visit Charges Inpatient E&M: 91771 Init Hosp L1
[2025-02-26 09:00] VITALS: BP 170/95; PULSE 65; RESP 14; TEMP 36.7; O2SAT 96
--- NOTE | 2025-02-26 09:27 | PN_ITS ---
Subjective Subjective Patient with bilateral ankle wounds, she is resting in bed this morning. Objective Data Objective Data Vital Signs: Vital Signs Temp Pulse Resp BP Pulse Ox O2 Del Method 97.6 F L 78 18 130/63 H 93 Room Air 02/26/25 02:53 02/26/25 02:53 02/26/25 02:53 02/26/25 02:53 02/26/25 02:53 02/26/25 02:55 Oxygen Delivery Method Room Air Weight: 67.35 kg Body Mass Index (BMI) 24.7 Intake & Output: Intake and Output for Last 24 Hours 02/24/25 02/25/25 02/26/25 23:59 23:59 23:59 Intake Total 1880 / 1880 3350 / 3350 2245 / 2245 Output Total 875 / 875 1100 / 1100 250 / 250 Balance 1005 / 1005 2250 / 2250 1994 Lab / Micro Data 02/26/25 05:31 02/26/25 05:31 Labs: Laboratory Results - last 24 hr 02/25/25 12:20: POC Glucose 118 H 02/25/25 14:35: Ammonia 31.3 02/25/25 17:12: POC Glucose 137 H 02/25/25 21:47: POC Glucose 153 H 02/26/25 00:55: Vancomycin Trough 7.8 02/26/25 05:31: WBC 13.7 H, RBC 3.50 L, Hgb 9.6 L, Hct 32.1 L, MCV 91.7 D, MCH 27.4, MCHC 29.9 L, RDW Std Deviation 58.2 H, RDW Coeff of Taty 17.5 H, Plt Count 186, MPV 10.4, Immature Gran % (Auto) 0.600, Neut % (Auto) 78.6 H, Lymph % (Auto) 13.5 L, [place] % (Auto) 7.1, Eos % (Auto) 0.1, Baso % (Auto) 0.1, Absolute Neuts (auto) 10.8 H, Absolute Lymphs (auto) 1.85, Nucleated RBC % 0, Sodium 143, Potassium 3.3, Chloride 113 H, Carbon Dioxide 17.5 L, Anion Gap 13, BUN 12, C reatinine 0.57 L, Estim Creat Clear Calc 42.90 L, Est GFR (MDRD) Non-Af 87, B UN/Creatinine Ratio 21.1 H, Glucose 133 H, Calcium 7.5 L 02/26/25 06:29: POC Glucose 119 H Micro: Microbiology 02/24/25 12:20 Blood Culture (Wb) - Right Forearm Blood Culture - Preliminary No growth in 48 hours. 02/24/25 12:20 Blood Culture (Wb) - Left Wrist Blood Culture - Preliminary No growth in 48 hours. 02/24/25 12:30 Wound Abcess - Ankle Gram Stain - Final Radiography Diagnostic Testing: Radiology Impression Ankle Brachial Index 02/24/25 20:52 Interpretation Summary Limited study. Right SENAIT not obtained due to patient discomfort. Doppler waveforms of the right ankle severely diminished at rest. Left SENAIT not obtained due to patient discomfort. Doppler waveforms of the left ankle severely diminished at rest. Ordering Physician: Mark Awad Referring Physician: Tiara Mcintyre Performed By: Mary Ann Mathur RVT Brain CT 02/25/25 13:15 IMPRESSION: 1. No acute intracranial abnormality. 2. Age-related atrophy and minimal chronic deep white matter disease. Reading Location: [facility] Physical Exam Const alert and no apparent distress Constitutional Narrative: Bilateral ankles bandaged - clean, dry and intact Assessment & Plan Assessment/Plan (1) Non-pressure chronic ulcer of right ankle with necrosis of muscle: (2) Non-pressure chronic ulcer of right ankle with fat layer exposed: (3) Non-pressure chronic ulcer of left ankle with fat layer exposed: (4) Cellulitis of right lower limb: (5) Edema, lower extremity: (6) Peripheral vascular disease due to secondary diabetes: PLAN: Plan Evaluation performed. Reviewed patient's chart and diagnostic data. Bilateral ankle xrays with no evidence of gas. WBC is elevated. A culture wound right ankle has been obtained - Patient on is IV antibiotics Vancomycin and Zosyn. Infectious Disease on consult. A noninvasive lower extremity arterial study has been ordered for further evaluation - unable to tolerated cuffs, monophasic waveforms noted - vascular surgery consulted. Wound care: Bilateral ankle wounds: apply wet to dry gauze with 1/2 strength dakin's solution topically to wounds and cover with abd pad and kerlix - change BID, and keep wounds offloaded at all times. Podiatry will continue to follow.
--- NOTE | 2025-02-26 10:28 | PCM.PN.ID ---
Physical Exam Narrative Asleep this AM, no fever Const no apparent distress Orientation / Consciousness: lethargic Resp normal air movement and clear to auscultation bilaterally Cardio regular rate and regular rhythm GI soft to palpation, non-tender and non-distended Skin Skin Narrative: legs wrapped ID ID: Route of nutrition/ use of supplements: [] Nutritional Intake: [] IV Site: [] Cee Catheter: [] Assessment & Plan Assessment/Plan (1) Infected open wound: PLAN: Tendon exposed. Podiatry following. Wound cx pending. Cont empiric vanc/zosyn. Will follow (2) Cellulitis of right lower limb:
--- NOTE | 2025-02-26 11:53 | CASEMGMT ---
Discharge Planning A list of?SNF providers including quality and resource use data and consistent with the patient's preferred geographic region, medical needs, and insurance network was created in [facility] [facility].? This list was provided to the SW. Hope Reeder Discharge Planning Asst.
[2025-02-26] MEDS: DAKIN'S SOL HALF STRENGTH (=0.25%) TOPICAL ×2 (12:04→20:24)
[2025-02-26 12:05] VITALS: PULSE 65
[2025-02-26] MEDS: Metoprolol Tartrate 50 MG Tablet PO ×2 (12:05→20:23)
--- NOTE | 2025-02-26 12:09 | CASEMGMT ---
Pt with confusion and receiving haldol. Vasc to not proceed until if/when pt mentation clears. Cx pending. RN CM to follow on Saturday for dc planning.
[2025-02-26] MEDS: Pantoprazole Sodium 40 MG Tablet PO (12:12)
[2025-02-26] MEDS: Senna/Docusate Sodium 1 Tablet 2 TABLET PO ×2 (12:13→20:25)
[2025-02-26] MEDS: Insulin Lispro 100 UNIT/ML INSULN.PEN SC ×3 (12:18→23:59)
[2025-02-26 12:51] LABS: Bedside Glucose 157 mg/dL (74-106)
[2025-02-26] MEDS: Menthol/Lanolin/Calamine/Znox 113 GM Tube 1 APPLIC TOPICAL ×2 (15:45→20:24)
[2025-02-26] MEDS: Acetaminophen 500 MG Tablet 1000 MG PO ×2 (15:46→20:22)
[2025-02-26] MEDS: Potassium Chloride Oral Tablet 20 MEQ 40 MEQ PO (17:11)
[2025-02-26 17:41] VITALS: BP 176/96; PULSE 89; RESP 18; TEMP 37.2; O2SAT 93
[2025-02-26 19:56] VITALS: BP 131/69; PULSE 98; RESP 20; TEMP 36.3; O2SAT 98
[2025-02-26] MEDS: QUEtiapine 25 MG Tablet 50 MG PO (20:21)
[2025-02-26] MEDS: MELATONIN 3 MG TABLET PO (20:22)
[2025-02-26 20:23] VITALS: BP 131/69; PULSE 98
[2025-02-26] MEDS: Atorvastatin Calcium 20 MG Tablet PO (20:24)
[2025-02-26 23:24] LABS: Bedside Glucose 173 mg/dL (74-106)
[2025-02-27] VITALS (7 sets, daily range): BP systolic 142–154; BP diastolic 80–105; PULSE 80–102; RESP 20–21; TEMP 36.2–36.9; O2SAT 92–99; BMI 24.7; BMI 25.6
[2025-02-27 00:22] LABS: Bedside Glucose 195 mg/dL (74-106)
[2025-02-27] MEDS: Haloperidol Lactate 5 MG/ML Vial 1 MG IM (02:25)
[2025-02-27] MEDS: Vancomycin HCl 750 MG in 0.9% Normal Saline (250mL Bag) 250 ML 250 MG IV ×2 (04:27→16:32)
--- NOTE | 2025-02-27 04:42 | NURSING ---
pt refused blood pressure this am
[2025-02-27] MEDS: Piperacil/Tazobactam 3.375 GM in 0.9% Normal Saline (50mL MB+) 50 ML IV ×4 (05:31→22:49)
[2025-02-27] MEDS: Menthol/Lanolin/Calamine/Znox 113 GM Tube 1 APPLIC TOPICAL ×3 (05:42→22:48)
[2025-02-27] MEDS: 0.9% Normal Saline (1000mL) 1,000 ML 150 ML IV (05:42)
[2025-02-27] MEDS: Acetaminophen 500 MG Tablet 1000 MG PO ×3 (05:42→22:51)
[2025-02-27] MEDS: Nystatin Powder 15gm Bottle 1 APPLIC TOPICAL ×3 (05:42→22:49)
[2025-02-27 06:07] LABS: Absolute Lymphocyte Count 1.16 X10^3/uL (0.83-4.51); Absolute Neutrophil Count 12.7 X10^3/uL (2.0-7.7); Basophil# 0.01 X10^3/uL; Basophil% 0.1 % (0-1); Hemoglobin 10.4 g/dL (12.0-15.0); Lymphocyte # 1.16 X10^3/ul (0.83-4.51); Lymphocyte % 7.8 % (19-41); Mean Corp Hgb Conc 29.7 g/dL (32-36); Mean Corpuscular Hgb 27.4 pg (27.0-32.0); Mean Corpuscular Volume 92.3 fL (81-99); Mean Platelet Vol. 10.7 fl (6.2-12.0); Monocyte# 0.93 X10^3/uL; Monocyte% 6.3 % (0-10); NRBC Flagged by Analyzer 0 % (0-5); Neutrophil # 12.68 X10^3/uL (2.7-7.7); Neutrophil % 85.3 % (47-70); Platelet Count 231 K/mm3 (150-450); RBC Distribution Width CV 17.5 % (11.6-14.6); RBC Distribution Width SD 59.2 fl (35.1-43.9); Red Blood Count 3.79 M/mm3 (4.2-5.4); White Blood Count 14.9 K/mm3 (4.4-11.0)
[2025-02-27] MEDS: Insulin Lispro 100 UNIT/ML INSULN.PEN SC ×4 (06:44→23:08)
--- NOTE | 2025-02-27 06:59 | PN.HOSP_ITS ---
Reason for Visit Reason for Visit: Diagnoses Other specified diabetes mellitus with diabetic peripheral angiopathy without gangrene (02/24/25) Hypokalemia (02/24/25) Encephalopathy, unspecified (02/24/25) Cellulitis of right lower limb (02/24/25) Local infection of the skin and subcutaneous tissue, unspecified (02/24/25) 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 (02/24/25) Non-pressure chronic ulcer of right ankle with fat layer exposed (02/24/25) Non-pressure chronic ulcer of right ankle with necrosis of muscle (02/24/25) Non-pressure chronic ulcer of left ankle with fat layer exposed (02/24/25) Pain in right foot (02/24/25) Pain in left foot (02/24/25) Localized edema (02/24/25) Other injury of unspecified body region, initial encounter (02/24/25) Subjective Subjective Confusion ongoing. Objective Data Objective Data Vital Signs: Vital Signs Temp Pulse Resp BP Pulse Ox O2 Del Method 36.3 C L 80 20 H 131/69 H 92 Room Air 02/27/25 04:34 02/27/25 04:34 02/27/25 04:34 02/26/25 20:23 02/27/25 04:34 02/27/25 04:34 Oxygen Delivery Method Room Air Weight: 67.4 kg Body Mass Index (BMI) 24.7 Intake & Output: Intake and Output for Last 24 Hours 02/25/25 02/26/25 02/27/25 23:59 23:59 23:59 Intake Total 3350 / 3350 4730 / 4930 515 / 515 Output Total 1100 / 1100 900 / 1350 1000 / 1000 Balance 2250 / 2250 3830 / 3580 -485 / -485 Lab / Micro Data 02/27/25 05:38 02/27/25 05:38 Labs: Laboratory Results - last 24 hr 02/26/25 05:31: Sodium 143, Potassium 3.3, Chloride 113 H, Carbon Dioxide 17.5 L , Anion Gap 13, BUN 12, Creatinine 0.57 L, Estim Creat Clear Calc 42.90 L, Est GFR (MDRD) Non-Af 87, BUN/Creatinine Ratio 21.1 H, Glucose 133 H, Calcium 7.5 L 02/26/25 12:06: POC Glucose 157 H 02/26/25 17:09: POC Glucose 173 H 02/26/25 23:59: POC Glucose 195 H 02/27/25 05:38: WBC 14.9 H, RBC 3.79 L, Hgb 10.4 L, Hct 35.0 L, MCV 92.3, MCH 27.4, MCHC 29.7 L, RDW Std Deviation 59.2 H, RDW Coeff of Taty 17.5 H, Plt Count 231, MPV 10.7, Immature Gran % (Auto) 0.500, Neut % (Auto) 85.3 H, Lymph % (Auto) 7.8 L, [place] % (Auto) 6.3, Eos % (Auto) 0.0, Baso % (Auto) 0.1, Absolute Neuts (auto) 12.7 H, Absolute Lymphs (auto) 1.16, Nucleated RBC % 0 Micro: Microbiology 02/24/25 12:30 Wound Abcess - Ankle Gram Stain - Final 02/24/25 12:30 Wound Abcess - Ankle Wound Culture - Preliminary GNR Poss Pseudomonas sp Gram negative ela Staphylococcus aureus Gram positive ela 02/24/25 12:20 Blood Culture (Wb) - Right Forearm Blood Culture - Preliminary No growth in 48 hours. 02/24/25 12:20 Blood Culture (Wb) - Left Wrist Blood Culture - Preliminary No growth in 48 hours. Physical Exam Const alert and no apparent distress HEENT head/scalp atraumatic and moist oral mucous membranes Resp normal respiratory effort, no retractions, no use of accessory muscles and clear to auscultation bilaterally Cardio regular rate, regular rhythm, S1 normal heart sound and S2 normal heart sound GI normal to inspection, nondistended, normoactive bowel sounds, soft to palpation, non-tender and non-distended Extremity normal to inspection and full ROM Extremity Narrative: legs wrapped. Assessment & Plan Assessment/Plan (1) Non-pressure chronic ulcer of right ankle with necrosis of muscle: PLAN: Exposed right Achilles tendon with RLE cellulitis Pt had been previously seen wound care, but apparently, wound worsened 2-days prior to admission. Podiatry consulted. Current plan is conservative mgmt with wound care and antibiotics. Abx with pip/tazo and vancomycin. Follow up culture Consult ID for long-term antibiotics. Duplex negative of LE. ABIs not performed due to discomfort. Doppler waveforms of right and left ankle severely diminished at rest. Vascular consulted. Tentative plan for CTA LE next week. DW Dr. Awad, wound appear improved. No plans for surgery until vascular issues addressed. (2) Hypokalemia: PLAN: Along with hypomagnesemia. Previously replaced (along with magnesium) Continue to replace (3) Encephalopathy: PLAN: concern for metabolic given underlying infection as well as medications. DC potentiating medications including morphine. PRN haloperidol. Quetiapine QHS. head CT negative for acute process. Prominent atrophy. Ammonia 31.3. PLAN: Plan DM2: on SSI. GERD: PPI VTE prophylaxis: SCDs. Charges/Coding Visit Charges Inpatient E&M: 98054 Subs Hosp L2
[2025-02-27 07:03] LABS: Bedside Glucose 162 mg/dL (74-106)
[2025-02-27 07:47] LABS: Anion Gap 18 (5-15); BUN 13 mg/dL (4-19); BUN/Creat Ratio 20.2 RATIO (10-20); Calcium,Total 8.3 mg/dL (7.6-11.0); Carbon Dioxide 14.2 mmol/L (21.0-32.0); Chloride 115 mmol/L (98-108); Creatinine, Serum 0.65 mg/dL (0.70-1.20); EST Glomerular Filtration Rate 84 (>60); Glucose 178 mg/dL (70-99); Potassium 3.7 mmol/L (3.3-5.1); Sodium Level 148 mmol/L (133-145)
[2025-02-27] MEDS: Potassium Chloride Oral Tablet 20 MEQ 40 MEQ PO ×2 (08:10→16:35)
[2025-02-27] MEDS: Juven (unflavored) Packet 1 PACKET PO (08:10)
[2025-02-27] MEDS: Pantoprazole Sodium 40 MG Tablet PO (08:11)
[2025-02-27] MEDS: Senna/Docusate Sodium 1 Tablet 2 TABLET PO ×2 (08:11→22:51)
[2025-02-27] MEDS: Metoprolol Tartrate 50 MG Tablet PO ×2 (08:12→22:50)
--- NOTE | 2025-02-27 08:35 | NURSING ---
Pt was pulling at her saavedra, bed sheets spread every where when rounded on pt. PT kept eyes closed but was talking and all nonsensical. Pt was incont of large amt of stool.
[2025-02-27] MEDS: DAKIN'S SOL HALF STRENGTH (=0.25%) TOPICAL ×2 (10:47→22:52)
--- NOTE | 2025-02-27 10:47 | PN_ITS ---
Subjective Subjective Patient was seen this morning for follow up on bilateral ankle wounds, she is resting in bed. No fever, WBC is noted to remain elevated. Objective Data Objective Data Vital Signs: Vital Signs Temp Pulse Resp BP Pulse Ox O2 Del Method 97.2 F L 98 21 H 142/82 H 99 Room Air 02/27/25 08:31 02/27/25 08:31 02/27/25 08:31 02/27/25 08:31 02/27/25 08:31 02/27/25 08:31 Oxygen Delivery Method Room Air Weight: 67.4 kg Body Mass Index (BMI) 24.7 Intake & Output: Intake and Output for Last 24 Hours 02/25/25 02/26/25 02/27/25 23:59 23:59 23:59 Intake Total 3350 / 3350 4730 / 4930 997.5 / 997.5 Output Total 1100 / 1100 900 / 1350 1000 / 1000 Balance 2250 / 2250 3830 / 3580 -2.5 / -2.5 Lab / Micro Data 02/27/25 05:38 02/27/25 05:38 Labs: Laboratory Results - last 24 hr 02/26/25 12:06: POC Glucose 157 H 02/26/25 17:09: POC Glucose 173 H 02/26/25 23:59: POC Glucose 195 H 02/27/25 05:38: WBC 14.9 H, RBC 3.79 L, Hgb 10.4 L, Hct 35.0 L, MCV 92.3, MCH 27.4, MCHC 29.7 L, RDW Std Deviation 59.2 H, RDW Coeff of Taty 17.5 H, Plt Count 231, MPV 10.7, Immature Gran % (Auto) 0.500, Neut % (Auto) 85.3 H, Lymph % (Auto) 7.8 L, [place] % (Auto) 6.3, Eos % (Auto) 0.0, Baso % (Auto) 0.1, Absolute Neuts (auto) 12.7 H, Absolute Lymphs (auto) 1.16, Nucleated RBC % 0, Sodium 148 H, Potassium 3.7, Chloride 115 H, Carbon Dioxide 14.2 L, Anion Gap 18 H, BUN 13, Creatinine 0.65 L, Estim Creat Clear Calc 42.90 L, Est GFR (MDRD) Non-Af 84, B UN/Creatinine Ratio 20.2 H, Glucose 178 H, Calcium 8.3 02/27/25 06:42: POC Glucose 162 H Micro: Microbiology 02/24/25 12:30 Wound Abcess - Ankle Gram Stain - Final 02/24/25 12:30 Wound Abcess - Ankle Wound Culture - Preliminary GNR Poss Pseudomonas sp Gram negative ela Staphylococcus aureus Gram positive ela 02/24/25 12:20 Blood Culture (Wb) - Right Forearm Blood Culture - Preliminary No growth in 48 hours. 02/24/25 12:20 Blood Culture (Wb) - Left Wrist Blood Culture - Preliminary No growth in 48 hours. Physical Exam Const alert and no apparent distress Constitutional Narrative: Right foot/ankle/leg: There is several wounds with worst to right posterior ankle down to exposed achilles tendon, there are several other wounds around right ankle down to subcutaneous tissue, there is signifcantly less cellulitis/erythema and edema is improved, no maloder, there is some serous drainage, there is combination of granular and nonviable tissue to the wounds base and margins of the wounds, there is some drying of the achilles tendon, there is no visible abscess, no crepitus, no purulence, no fluctuance. There appears to be pain to the wounds. Left foot/ankle/leg: there are two wounds to ankle down to subcutaneous tissue one to anterior ankle and the other posteriorly, there is fibrotic tissue and some granular tissue to the base and margins are viable, there is no maloder, no fluctuance, no crepitus, no visible abscess, there is some mild erythema localized to site. There appears to be pain to the wounds. No evidence of acute ischemia bilateral foot/ankle, CFT 3-4 seconds to toes bilateral, edema is improved bilateral legs. Sensation appears to be intact to touch bilateral foot. Assessment & Plan Assessment/Plan (1) Non-pressure chronic ulcer of right ankle with necrosis of muscle: (2) Non-pressure chronic ulcer of right ankle with fat layer exposed: (3) Non-pressure chronic ulcer of left ankle with fat layer exposed: (4) Cellulitis of right lower limb: (5) Edema, lower extremity: (6) Peripheral vascular disease due to secondary diabetes: PLAN: Plan Evaluation performed. Reviewed patient's chart and diagnostic data. Reviewed labs, although WBC remains elevated, clinically bilateral ankle cellulitis and wound are improved with antibiotics and local care. A culture wound right ankle has been obtained, reviewed - Patient on is IV antibiotics Vancomycin and Zosyn. Infectious Disease on consult. A noninvasive lower extremity arterial study has been ordered for further evaluation - unable to tolerated cuffs, monophasic waveforms noted - vascular surgery on consult. Wound care: Bilateral ankle wounds: continue withy wet to dry gauze with 1/2 strength dakin's solution topically to wounds and cover with abd pad and kerlix - change BID, and keep wounds offloaded at all times. Dressing was changed this morning. Podiatry will continue to follow. I did speak with patient's son Gabe regarding ankle findings today.
[2025-02-27 13:44] LABS: Bedside Glucose 201 mg/dL (74-106)
[2025-02-27 15:45] LABS: Vancomycin, Trough Level 17.4 ug/mL (5.0-15.0)
[2025-02-27] MEDS: Vancomycin Trough/Random Due 1 LAB MC (15:59)
--- NOTE | 2025-02-27 16:01 | PHA.PHARE_ITS ---
Consult Antibiotic Management Pharmacy has been consulted to manage selected antibiotic: Vancomycin Type of Intervention Type of Consult: Follow-up Labs Labs: Sodium 148 mmol/L (133-145) H 02/27/25 05:38 Potassium 3.7 mmol/L (3.3-5.1) 02/27/25 05:38 Chloride 115 mmol/L (98-108) H 02/27/25 05:38 Carbon Dioxide 14.2 mmol/L (21.0-32.0) L 02/27/25 05:38 Anion Gap 18 (5-15) H 02/27/25 05:38 BUN 13 mg/dL (4-19) 02/27/25 05:38 Creatinine 0.65 mg/dL (0.70-1.20) L 02/27/25 05:38 Est GFR (MDRD) Non-Af 84 (>60) 02/27/25 05:38 BUN/Creatinine Ratio 20.2 RATIO (10-20) H 02/27/25 05:38 Glucose 178 mg/dL (70-99) H 02/27/25 05:38 Vancomycin Trough 17.4 ug/mL (5.0-15.0) H 02/27/25 14:25 Microbiology Microbiology: Microbiology 02/24/25 12:30 Wound Abcess - Ankle Gram Stain - Final 02/24/25 12:30 Wound Abcess - Ankle Wound Culture - Final Pseudomonas aeruginosa#2 Pseudomonas aeruginosa Staphylococcus aureus Gram positive ela 02/24/25 12:20 Blood Culture (Wb) - Right Forearm Blood Culture - Preliminary No growth in 48 hours. 02/24/25 12:20 Blood Culture (Wb) - Left Wrist Blood Culture - Preliminary No growth in 48 hours. Pharmacy Plan for Drug Dosing Pharmacy Plan for Drug Dosing: VANCOMYCIN LEVEL RECEIVED Current Vancomycin Dose: 750MG Q12 Number of Doses Received: 6 Vancomycin Level: 17.4 MG/DL Hours Since Last Dose: 10 Renal Function: SCr 0.65 mg/dL, CrCl 42 mL/min Renal Function Trend: stable Lab/Micro: wound cx with staph and GPR Vancomycin Plan/Comments: 10 hour trough is therapeutic at 17.4mg/dL (goal 15- 20). Will continue current dosing and get a trough in 2 days per policy. Pending Level: 03/01/25 @ 1430 Pharmacy Service will continue to monitor and adjust dosing as required.
[2025-02-27] MEDS: Glucerna Shake 120 ML LIQUID PO (16:38)
[2025-02-27 17:38] LABS: Bedside Glucose 189 mg/dL (74-106)
[2025-02-27] MEDS: QUEtiapine 25 MG Tablet 50 MG PO (22:51)
[2025-02-27] MEDS: Atorvastatin Calcium 20 MG Tablet PO (22:52)
[2025-02-27 23:31] LABS: Bedside Glucose 259 mg/dL (74-106)
[2025-02-28] VITALS (11 sets, daily range): BP systolic 154–165; BP diastolic 83–134; PULSE 85–111; RESP 20–33; TEMP 36.1–37.1; O2SAT 95–100
[2025-02-28] MEDS: Vancomycin HCl 750 MG in 0.9% Normal Saline (250mL Bag) 250 ML 250 MG IV ×2 (03:00→14:30)
[2025-02-28] MEDS: Menthol/Lanolin/Calamine/Znox 113 GM Tube 1 APPLIC TOPICAL ×3 (07:13→21:13)
[2025-02-28] MEDS: Acetaminophen 500 MG Tablet 1000 MG PO ×2 (07:15→12:14)
[2025-02-28] MEDS: Nystatin Powder 15gm Bottle 1 APPLIC TOPICAL ×3 (07:15→21:13)
[2025-02-28] MEDS: Piperacil/Tazobactam 3.375 GM in 0.9% Normal Saline (50mL MB+) 50 ML IV ×3 (07:16→21:11)
[2025-02-28] MEDS: Insulin Lispro 100 UNIT/ML INSULN.PEN SC ×3 (07:16→16:13)
[2025-02-28 07:17] LABS: Absolute Lymphocyte Count 1.34 X10^3/uL (0.83-4.51); Basophil# 0.01 X10^3/uL; Basophil% 0.1 % (0-1); Hematocrit 30.4 % (37-47); Hemoglobin 9.3 g/dL (12.0-15.0); Lymphocyte # 1.34 X10^3/ul (0.83-4.51); Lymphocyte % 12.1 % (19-41); Mean Corp Hgb Conc 30.6 g/dL (32-36); Mean Corpuscular Hgb 27.1 pg (27.0-32.0); Mean Corpuscular Volume 88.6 fL (81-99); Mean Platelet Vol. 10.8 fl (6.2-12.0); Monocyte# 0.76 X10^3/uL; Monocyte% 6.8 % (0-10); NRBC Flagged by Analyzer 0 % (0-5); Neutrophil # 8.95 X10^3/uL (2.7-7.7); Neutrophil % 80.5 % (47-70); Platelet Count 260 K/mm3 (150-450); RBC Distribution Width CV 17.8 % (11.6-14.6); RBC Distribution Width SD 58.1 fl (35.1-43.9); Red Blood Count 3.43 M/mm3 (4.2-5.4); White Blood Count 11.1 K/mm3 (4.4-11.0)
--- NOTE | 2025-02-28 07:30 | PN.HOSP_ITS ---
Reason for Visit Reason for Visit: Diagnoses Other specified diabetes mellitus with diabetic peripheral angiopathy without gangrene (02/24/25) Hypokalemia (02/24/25) Encephalopathy, unspecified (02/24/25) Cellulitis of right lower limb (02/24/25) Local infection of the skin and subcutaneous tissue, unspecified (02/24/25) 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 (02/24/25) Non-pressure chronic ulcer of right ankle with fat layer exposed (02/24/25) Non-pressure chronic ulcer of right ankle with necrosis of muscle (02/24/25) Non-pressure chronic ulcer of left ankle with fat layer exposed (02/24/25) Pain in right foot (02/24/25) Pain in left foot (02/24/25) Localized edema (02/24/25) Other injury of unspecified body region, initial encounter (02/24/25) Subjective Subjective no new events Objective Data Objective Data Vital Signs: Vital Signs Temp Pulse Resp BP Pulse Ox O2 Del Method 36.9 C 90 20 H 152/105 H 97 Room Air 02/27/25 20:47 02/27/25 22:50 02/27/25 20:47 02/27/25 20:47 02/27/25 20:47 02/27/25 20:47 Oxygen Delivery Method Room Air Weight: 69.7 kg Body Mass Index (BMI) 25.6 Intake & Output: Intake and Output for Last 24 Hours 02/26/25 02/27/25 02/28/25 23:59 23:59 23:59 Intake Total 4730 / 4930 1712.5 / 1712.5 315 / 315 Output Total 900 / 1350 1675 / 1675 Balance 3830 / 3580 37.5 / 37.5 315 / 315 Lab / Micro Data 02/28/25 05:18 02/28/25 05:18 Labs: Laboratory Results - last 24 hr 02/27/25 05:38: Sodium 148 H, Potassium 3.7, Chloride 115 H, Carbon Dioxide 14.2 L, Anion Gap 18 H, BUN 13, Creatinine 0.65 L, Estim Creat Clear Calc 42.90 L, Est GFR (MDRD) Non-Af 84, BUN/Creatinine Ratio 20.2 H, Glucose 178 H, Calcium 8.3 02/27/25 13:16: POC Glucose 201 H 02/27/25 14:25: Vancomycin Trough 17.4 H 02/27/25 16:31: POC Glucose 189 H 02/27/25 23:07: POC Glucose 259 H 02/28/25 05:18: WBC 11.1 H, RBC 3.43 L, Hgb 9.3 L, Hct 30.4 L, MCV 88.6, MCH 27.1, MCHC 30.6 L, RDW Std Deviation 58.1 H, RDW Coeff of Taty 17.8 H, Plt Count 260, MPV 10.8, Immature Gran % (Auto) 0.500, Neut % (Auto) 80.5 H, Lymph % (Auto) 12.1 L, [place]iaferro % (Auto) 6.8, Eos % (Auto) 0.0, Baso % (Auto) 0.1, Absolute Neuts (auto) 9.0 H, Absolute Lymphs (auto) 1.34, Nucleated RBC % 0 Micro: Microbiology 02/24/25 12:30 Wound Abcess - Ankle Gram Stain - Final 02/24/25 12:30 Wound Abcess - Ankle Wound Culture - Final Pseudomonas aeruginosa#2 Pseudomonas aeruginosa Staphylococcus aureus Gram positive ela 02/24/25 12:20 Blood Culture (Wb) - Right Forearm Blood Culture - Preliminary No growth in 48 hours. 02/24/25 12:20 Blood Culture (Wb) - Left Wrist Blood Culture - Preliminary No growth in 48 hours. Physical Exam Const alert and no apparent distress HEENT head/scalp atraumatic and moist oral mucous membranes Resp normal respiratory effort, no retractions, no use of accessory muscles and clear to auscultation bilaterally Cardio regular rate, regular rhythm, S1 normal heart sound and S2 normal heart sound GI normal to inspection, nondistended, normoactive bowel sounds, soft to palpation and non-tender Assessment & Plan Assessment/Plan (1) Non-pressure chronic ulcer of right ankle with necrosis of muscle: PLAN: Exposed right Achilles tendon with RLE cellulitis Pt had been previously seen wound care, but apparently, wound worsened 2-days prior to admission. Podiatry consulted. Current plan is conservative mgmt with wound care and antibiotics. Abx with pip/tazo and vancomycin. Follow up culture Consult ID for long-term antibiotics. Duplex negative of LE. ABIs not performed due to discomfort. Doppler waveforms of right and left ankle severely diminished at rest. Vascular consulted. Tentative plan for CTA LE next week. DW Dr. Awad, wound appear improved. No plans for surgery until vascular issues addressed. (2) Hypokalemia: PLAN: Along with hypomagnesemia. Previously replaced (along with magnesium) Continue to replace (3) Encephalopathy: PLAN: concern for metabolic given underlying infection as well as medications. DC potentiating medications including morphine. PRN haloperidol. Quetiapine QHS. head CT negative for acute process. Prominent atrophy. Ammonia 31.3. PLAN: Plan DM2: on SSI. GERD: PPI VTE prophylaxis: SCDs. Charges/Coding Visit Charges Inpatient E&M: 85673 Subs Hosp L2
[2025-02-28 07:36] LABS: Anion Gap 13 (5-15); BUN 21 mg/dL (4-19); BUN/Creat Ratio 29.5 RATIO (10-20); Calcium,Total 8.6 mg/dL (7.6-11.0); Carbon Dioxide 16.4 mmol/L (21.0-32.0); Chloride 121 mmol/L (98-108); Creatinine, Serum 0.73 mg/dL (0.70-1.20); EST Glomerular Filtration Rate 79 (>60); Estimated Creatinine Clearance 46.72 ml/min (50-250); Glucose 203 mg/dL (70-99); Potassium 4.1 mmol/L (3.3-5.1); Sodium Level 149 mmol/L (133-145)
[2025-02-28] MEDS: Senna/Docusate Sodium 1 Tablet 2 TABLET PO (09:52)
[2025-02-28] MEDS: Pantoprazole Sodium 40 MG Tablet PO (09:53)
[2025-02-28] MEDS: Metoprolol Tartrate 50 MG Tablet PO (09:56)
--- NOTE | 2025-02-28 10:10 | NURSING ---
downtime documentation 02/28/25 12am until 7am
[2025-02-28 10:35] LABS: Bedside Glucose 205 mg/dL (74-106)
[2025-02-28 12:52] LABS: Bedside Glucose 205 mg/dL (74-106)
[2025-02-28] MEDS: DAKIN'S SOL HALF STRENGTH (=0.25%) TOPICAL ×2 (14:23→22:42)
--- NOTE | 2025-02-28 15:04 | NURSING ---
This RN texted Dr. Chu regarding low output in saavedra of 175cc. and recent Vital Signs of 162/108, HR 97, spo2 97% resp 29.min. This RN applied 2L NC o2 to see if it would help slow down the respirations. Dr. Chu aware of the above and will look into what to do.
[2025-02-28 16:37] LABS: Bedside Glucose 264 mg/dL (74-106)
--- NOTE | 2025-02-28 18:12 | NURSING ---
This RN talked with Dr. Chu again to let him know that pt saavedra output from 1400 to now is only 50cc. PT more lethargic then yesterday. Not eatting or drinking and latest BP 154/119, HR 99, Respirations 31. spo2 97% on RA. order for lasix 20mg IV x1.
[2025-02-28] MEDS: Furosemide 20 MG/2 ML VIAL IV (18:44)
--- NOTE | 2025-02-28 19:31 | NURSING ---
This Rn talked with patients son Quentin Huggins who is on pts contact list to discuss code status. Quentin was not sure and wanted to talk to sister and will call this floor back when talked to sister. This RN also asked son if any of the Doctors asked him or the patient in the [facility] room when she got admitted about her code status, pt did not think that anyone did. Merissa Gaona RN is aware that phone call was made and Quentin to call back.
[2025-02-28 23:19] LABS: Bedside Glucose 207 mg/dL (74-106)
[2025-03-01] VITALS (11 sets, daily range): BP systolic 122–159; BP diastolic 80–114; PULSE 62–117; RESP 26–34; TEMP 36.4–37.4; O2SAT 93–99; BMI 24.7
[2025-03-01] MEDS: Vancomycin HCl 750 MG in 0.9% Normal Saline (250mL Bag) 250 ML 250 MG IV (03:13)
[2025-03-01] MEDS: Menthol/Lanolin/Calamine/Znox 113 GM Tube 1 APPLIC TOPICAL ×3 (05:51→22:39)
[2025-03-01] MEDS: Piperacil/Tazobactam 3.375 GM in 0.9% Normal Saline (50mL MB+) 50 ML IV ×3 (05:51→22:41)
[2025-03-01] MEDS: Nystatin Powder 15gm Bottle 1 APPLIC TOPICAL ×3 (05:52→22:41)
[2025-03-01 07:09] LABS: Absolute Neutrophil Count 9.6 X10^3/uL (2.0-7.7); Basophil# 0.01 X10^3/uL; Basophil% 0.1 % (0-1); Hematocrit 32.3 % (37-47); Hemoglobin 9.9 g/dL (12.0-15.0); Lymphocyte % 8.1 % (19-41); Mean Corp Hgb Conc 30.7 g/dL (32-36); Mean Corpuscular Volume 88.3 fL (81-99); Mean Platelet Vol. 10.6 fl (6.2-12.0); Monocyte# 0.57 X10^3/uL; Monocyte% 5.1 % (0-10); NRBC Flagged by Analyzer 0.2 % (0-5); Neutrophil # 9.57 X10^3/uL (2.7-7.7); Neutrophil % 85.7 % (47-70); Platelet Count 268 K/mm3 (150-450); RBC Distribution Width CV 18.3 % (11.6-14.6); RBC Distribution Width SD 58.4 fl (35.1-43.9); Red Blood Count 3.66 M/mm3 (4.2-5.4); White Blood Count 11.2 K/mm3 (4.4-11.0)
[2025-03-01 07:17] LABS: Bedside Glucose 245 mg/dL (74-106)
[2025-03-01] MEDS: Insulin Lispro 100 UNIT/ML INSULN.PEN SC ×3 (07:38→17:26)
[2025-03-01 07:40] LABS: Anion Gap 15 (5-15); BUN 24 mg/dL (4-19); BUN/Creat Ratio 29.8 RATIO (10-20); Calcium,Total 8.2 mg/dL (7.6-11.0); Carbon Dioxide 14.7 mmol/L (21.0-32.0); Chloride 120 mmol/L (98-108); Creatinine, Serum 0.82 mg/dL (0.70-1.20); EST Glomerular Filtration Rate 69 (>60); Estimated Creatinine Clearance 41.85 ml/min (50-250); Glucose 277 mg/dL (70-99); Potassium 3.7 mmol/L (3.3-5.1); Sodium Level 149 mmol/L (133-145)
--- NOTE | 2025-03-01 08:01 | NURSING ---
Phone conversation with sonQuentin this morning which was a continuation of conversation last night when son, daughters, and granddaughters were in patient's room. It is a bit of a shock to family that patient is nearing the end of her life. Her son mentioned that the home health nurse that they had always acted like Erika was one of their healthiest patients. This RN explained the differences in DNR-CCA and DNR-CC. The son wants patient to be DNR-CCA. He wants everything done until cardiac arrest or respiratory arrest. The son said, When it is done, it is done. This RN mentioned the [facility] booklet to the son and said it would be in patient's room for family to look at if they want to do so. The son does not want to talk to the crochet machine operator. We will just deal with it. The son is not ready to talk hospice. He said, I think she is in the best place for this. This RN talked about benefits of hospice. He is not ready to talk about that.
[2025-03-01] MEDS: DAKIN'S SOL HALF STRENGTH (=0.25%) TOPICAL ×2 (10:02→22:40)
[2025-03-01 11:32] LABS: Allen Test Positive; Base Excess -5 mmol/L (-2 to +2); Bicarbonate 19.3 mmol/L (22-26); Blood Gas Specimen Type ART; Mode Not entered; O2 Delivery Device Cannula; PO2 89 mmHG (75-100); SITE L Radial; SO2 97 % (95-99); Total Carbon Dioxide 20 mmol/L; pCO2 27.9 mmHg (35-45); pH 7.45 (7.35-7.45)
[2025-03-01 11:45] LABS: Bedside Glucose 211 mg/dL (74-106)
--- NOTE | 2025-03-01 13:07 | PN.ID_ITS ---
ID ID: Route of nutrition/ use of supplements: [] Nutritional Intake: [] IV Site: [] Cee Catheter: [] Patient generally weak and noncommunicative. Currently n.p.o. because of the high risk for aspiration. Antimicrobial regiment reviewed currently on vancomyc in plus Zosyn. Microbiology data of the heel wound cultures reviewed. No fevers. Laboratory studies reviewed renal function is intact On exam she is generally weak and noncommunicative lungs are clear heart exam S1-S2 abdomen soft. Both feet dressings are in place Assessment & Plan Assessment/Plan (1) Infected open wound: PLAN: Based on the microbiology data of her wound cultures we will continue Zosyn for now. Will discontinue vancomycin and streamline her antimicrobial therapy based on her culture data.
--- NOTE | 2025-03-01 14:47 | PN_ITS ---
Subjective Subjective Patient followed by podiatry for bilateral ankle ulcerations. Patient's daughter are at bedside. Objective Data Objective Data Vital Signs: Vital Signs Temp Pulse Resp BP Pulse Ox O2 Del Method O2 Flow Rate 98.2 F 72 30 H 122/91 H 98 Nasal Cannula 2 03/01/25 13:55 03/01/25 13:55 03/01/25 13:55 03/01/25 13:55 03/01/25 13:55 03/01/25 13:55 03/01/25 13:55 Oxygen Flow Rate (L/min) 2 Oxygen Delivery Method Nasal Cannula Weight: 67.4 kg Body Mass Index (BMI) 24.7 Intake & Output: Intake and Output for Last 24 Hours 02/27/25 02/28/25 03/01/25 23:59 23:59 23:59 Intake Total 1712.5 / 1712.5 780 / 780 365 / 365 Output Total 1675 / 1675 225 / 1200 1225 / 1225 Balance 37.5 / 37.5 555 / -420 -860 / -860 Lab / Micro Data 03/01/25 06:44 03/01/25 06:44 Labs: Laboratory Results - last 24 hr 02/28/25 16:12: POC Glucose 264 H 02/28/25 22:39: POC Glucose 207 H 03/01/25 06:44: WBC 11.2 H, RBC 3.66 L, Hgb 9.9 L, Hct 32.3 L, MCV 88.3, MCH 27.0, MCHC 30.7 L, RDW Std Deviation 58.4 H, RDW Coeff of Taty 18.3 H, Plt Count 268, MPV 10.6, Immature Gran % (Auto) 1.000 H, Neut % (Auto) 85.7 H, Lymph % (Auto) 8.1 L, [place] % (Auto) 5.1, Eos % (Auto) 0.0, Baso % (Auto) 0.1, Absolute Neuts (auto) 9.6 H, Absolute Lymphs (auto) 0.90, Nucleated RBC % 0.2, Sodium 149 H, Potassium 3.7, Chloride 120 H, Carbon Dioxide 14.7 L, Anion Gap 15, BUN 24 H, Creatinine 0.82, Estim Creat Clear Calc 41.85 L, Est GFR (MDRD) Non-Af 69, B UN/Creatinine Ratio 29.8 H, Glucose 277 H, Calcium 8.2 03/01/25 06:53: POC Glucose 245 H 03/01/25 11:19: POC Glucose 211 H Micro: Microbiology 02/24/25 12:20 Blood Culture (Wb) - Right Forearm Blood Culture - Final No growth in 5 days. 02/24/25 12:20 Blood Culture (Wb) - Left Wrist Blood Culture - Final No growth in 5 days. 02/24/25 12:30 Wound Abcess - Ankle Gram Stain - Final 02/24/25 12:30 Wound Abcess - Ankle Wound Culture - Final Pseudomonas aeruginosa#2 Pseudomonas aeruginosa Staphylococcus aureus Gram positive ela ABG Data ABG results: ABG 03/01/25 11:28 Specimen Type ART Sample Site L Radial pH 7.45 Bicarbonate Actual 19.3 L Total CO2 20 Base Excess -5 L O2 Saturation 97 O2 % 2.0 ABG pCO2 27.9 L ABG pO2 89 Perico Test Positive O2 Delivery Device Cannula Vent Mode Not entered Physical Exam Const no apparent distress Constitutional Narrative: overall weak appearing Exam Limitations: altered mental status Assessment & Plan Assessment/Plan (1) Non-pressure chronic ulcer of right ankle with necrosis of muscle: (2) Non-pressure chronic ulcer of right ankle with fat layer exposed: (3) Non-pressure chronic ulcer of left ankle with fat layer exposed: (4) Cellulitis of right lower limb: (5) Edema, lower extremity: (6) Peripheral vascular disease due to secondary diabetes: PLAN: Plan Bilateral ankle wounds: A culture wound right ankle has been obtained, reviewed - Patient on is IV antibiotic: Zosyn. Infectious Disease on consult. A noninvasive lower extremity arterial study has been ordered for further evaluation - unable to tolerated cuffs, monophasic waveforms noted - vascular surgery is on consult. Continue with local wound care: Bilateral ankle wounds: continue with wet to dry gauze with 1/2 strength dakin's solution topically to wounds and cover with abd pad and kerlix - change BID, and keep wounds offloaded at all times. Podiatry will continue to follow. I spoke with patient's son Gabe, as well as her 3 daughters who were present visiting patient today - discussed with them regarding ankle wound status, expectations, and current plan. They state they are considering hospice for patient.
--- NOTE | 2025-03-01 15:17 | CASEMGMT ---
Social Work Hospice referral placed. SW called hospice, faxed referral. As per physician, daughter Eliza Huggins is main contact: [phone]. SW let hospice know this. Hospice to call SW back w/meeting time. DAYANNA Almanza
--- NOTE | 2025-03-01 15:55 | PN.HOSP_ITS ---
Reason for Visit Reason for Visit: Diagnoses Other specified diabetes mellitus with diabetic peripheral angiopathy without gangrene (02/24/25) Hypokalemia (02/24/25) Encephalopathy, unspecified (02/24/25) Peripheral vascular disease, unspecified (02/24/25) Cellulitis of right lower limb (02/24/25) Local infection of the skin and subcutaneous tissue, unspecified (02/24/25) 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 (02/24/25) Non-pressure chronic ulcer of right ankle with fat layer exposed (02/24/25) Non-pressure chronic ulcer of right ankle with necrosis of muscle (02/24/25) Non-pressure chronic ulcer of left ankle with fat layer exposed (02/24/25) Pain in right foot (02/24/25) Pain in left foot (02/24/25) Localized edema (02/24/25) Other injury of unspecified body region, initial encounter (02/24/25) Subjective Subjective Saw patient at bedside this morning, 2 daughters present. Patient was very somnolent and was not awakening on command. Attempted mild sternal rub with some grimacing noted. She was protecting her airway and had appropriate spontaneous movements of her arms and legs. Discussed with nursing staff and family and they noted that patient has been fairly somnolent like this since yesterday. She notably received her last dose of Haldol on the morning of 02/27 at 2 AM, has not gotten any sedative medication since then. Obtained stat ABG and it showed pH 7.45, no other concerning findings. Saw patient again at bedside earlier this afternoon and she remained somnolent with some worsening of belly breathing noted. I discussed with family that I am concerned that patient may be in the process of dying. Unfortunately, there is no identifiable cause for her encephalopathy currently and nothing different to do medically. She notably had a CT head on admission that was negative. A third daughter was at the bedside this afternoon. The daughters were in agreement that they would like to pursue hospice care for the patient. However, the patient's son is hesitant to pursue hospice care as he believes there may still be a chance of recovery for the patient. After further discussion with patient's daughters, consults placed to hospice care with plan for full family discussion tomorrow. Importantly, patient's CODE STATUS was determined with family to be DNR CCA, DNI. Objective Data Objective Data Vital Signs: Vital Signs Temp Pulse Resp BP Pulse Ox O2 Del Method O2 Flow Rate 98.2 F 72 30 H 122/91 H 98 Nasal Cannula 2 03/01/25 13:55 03/01/25 13:55 03/01/25 13:55 03/01/25 13:55 03/01/25 13:55 03/01/25 13:55 03/01/25 13:55 Oxygen Flow Rate (L/min) 2 Oxygen Delivery Method Nasal Cannula Weight: 67.4 kg Body Mass Index (BMI) 24.7 Intake & Output: Intake and Output for Last 24 Hours 02/27/25 02/28/25 03/01/25 23:59 23:59 23:59 Intake Total 1712.5 / 1712.5 780 / 780 365 / 365 Output Total 1675 / 1675 225 / 1200 1225 / 1225 Balance 37.5 / 37.5 555 / -420 -860 / -860 Lab / Micro Data 03/01/25 06:44 03/01/25 06:44 Labs: Laboratory Results - last 24 hr 02/28/25 16:12: POC Glucose 264 H 02/28/25 22:39: POC Glucose 207 H 03/01/25 06:44: WBC 11.2 H, RBC 3.66 L, Hgb 9.9 L, Hct 32.3 L, MCV 88.3, MCH 27.0, MCHC 30.7 L, RDW Std Deviation 58.4 H, RDW Coeff of Taty 18.3 H, Plt Count 268, MPV 10.6, Immature Gran % (Auto) 1.000 H, Neut % (Auto) 85.7 H, Lymph % (Auto) 8.1 L, [place] % (Auto) 5.1, Eos % (Auto) 0.0, Baso % (Auto) 0.1, Absolute Neuts (auto) 9.6 H, Absolute Lymphs (auto) 0.90, Nucleated RBC % 0.2, Sodium 149 H, Potassium 3.7, Chloride 120 H, Carbon Dioxide 14.7 L, Anion Gap 15, BUN 24 H, Creatinine 0.82, Estim Creat Clear Calc 41.85 L, Est GFR (MDRD) Non-Af 69, B UN/Creatinine Ratio 29.8 H, Glucose 277 H, Calcium 8.2 03/01/25 06:53: POC Glucose 245 H 03/01/25 11:19: POC Glucose 211 H Micro: Microbiology 02/24/25 12:20 Blood Culture (Wb) - Right Forearm Blood Culture - Final No growth in 5 days. 02/24/25 12:20 Blood Culture (Wb) - Left Wrist Blood Culture - Final No growth in 5 days. 02/24/25 12:30 Wound Abcess - Ankle Gram Stain - Final 02/24/25 12:30 Wound Abcess - Ankle Wound Culture - Final Pseudomonas aeruginosa#2 Pseudomonas aeruginosa Staphylococcus aureus Gram positive ela ABG Data ABG results: ABG 03/01/25 11:28 Specimen Type ART Sample Site L Radial pH 7.45 Bicarbonate Actual 19.3 L Total CO2 20 Base Excess -5 L O2 Saturation 97 O2 % 2.0 ABG pCO2 27.9 L ABG pO2 89 Perico Test Positive O2 Delivery Device Cannula Vent Mode Not entered Physical Exam Const no apparent distress Constitutional Narrative: Elderly female, somnolent, small spontaneous movements of arms and legs noted but patient appears comfortable and not agitated. Not responding to commands but does grimace to pain stimulation. General Appearance: comfortable Orientation / Consciousness: lethargic HEENT normocephalic, head/scalp atraumatic and nasal mucous membranes and turbinates normal Neck full ROM Chest inspection of chest normal Resp Resp Narrative: Abdominal breathing noted with respiration rate in the mid to high 20s. Good oxygen saturations on 2 L nasal cannula and good air movement throughout bilaterally, no wheezing or crackles noted. Cardio regular rate, regular rhythm, no murmurs and peripheral pulses 2+ throughout GI normal to inspection, nondistended, normoactive bowel sounds, soft to palpation, non-tender and non-distended Back/Spine normal ROM Extremity Extremity Narrative: Bilateral ankle wounds noted. Assessment & Plan Assessment/Plan (1) Encephalopathy: (2) Ankle ulcer: PLAN: Plan Patient is an 89-year-old female who presented [facility] ED on 02/24/25 with severe right ankle wound. 1. Acute metabolic encephalopathy ? Patient A&O x 3 at baseline. Had significant agitation noted on 02/26 and was started on IM Haldol as needed. Required several doses of this over the course of 02/26, with last dose being at 2 AM on 02/27. CT head negative on admit. Lab workup benign. Suspected to be metabolic encephalopathy given underlying infection with possible contribution from medications. Unfortunately, patient has now been somnolent since 02/28. Very somnolent on 03/01, not responding to verbal commands. No offending medications given since dose of Haldol on early 02/27. ABG on 03/01 unremarkable. Unfortunately have concern that patient may be in the process of dying. Discussed with family and hospice care consulted on 03/01 with plan for family conversation on 03/02. Continue to avoid sedating medications. Continue further management as noted below. 2. Severe right ankle wound with exposed right Achilles tendon, chronic pressure wounds of bilateral ankles ? Podiatry, ID and vascular surgery following. Wound cultures growing Pseudomonas and MSSA. Per ID, vancomycin discontinued on 03/01, will continue IV Zosyn for now. Patient unable to tolerate noninvasive lower extremity arterial study and this is on hold at this time. Per podiatry, continue local wound care and keep wounds offloaded at all times. 3. Hypokalemia ? Repleting as needed. 4. Intertrigo ? Continue nystatin powder. Chronic medical conditions: ? Type 2 diabetes mellitus: Continue sliding scale insulin every 6 hours as needed. ? GERD: Continue home PPI. ? Hypertension, hyperlipidemia: Continue home Lopressor and statin. DVT prophylaxis: SCDs CODE STATUS: DNR CCA, DNI Expected disposition: TBD Total clinical time spent by myself addressing the patient's medical issues, reviewing all the data, and collaborating with patient's care team: 50 minutes. Charges/Coding Visit Charges Inpatient E&M: 01344 Subs Hosp L3
[2025-03-01 17:27] LABS: Bedside Glucose 164 mg/dL (74-106)
[2025-03-01 23:05] LABS: Bedside Glucose 197 mg/dL (74-106)
[2025-03-02 01:48] VITALS: PULSE 111; RESP 28; TEMP 37.7; O2SAT 97
[2025-03-02 04:32] VITALS: PULSE 121; RESP 32; TEMP 37.8; O2SAT 95
[2025-03-02] MEDS: Piperacil/Tazobactam 3.375 GM in 0.9% Normal Saline (50mL MB+) 50 ML IV (04:34)
[2025-03-02] MEDS: Nystatin Powder 15gm Bottle 1 APPLIC TOPICAL (04:35)
[2025-03-02] MEDS: Menthol/Lanolin/Calamine/Znox 113 GM Tube 1 APPLIC TOPICAL (04:35)
[2025-03-02 05:12] VITALS: BMI 23.3
[2025-03-02 05:57] VITALS: BP 149/103; PULSE 76; RESP 32; TEMP 36.8; O2SAT 95
[2025-03-02] MEDS: Insulin Lispro 100 UNIT/ML INSULN.PEN SC ×3 (06:02→17:57)
[2025-03-02 07:24] LABS: Hemoglobin 10.1 g/dL (12.0-15.0); Mean Corp Hgb Conc 30.6 g/dL (32-36); Mean Corpuscular Hgb 27.5 pg (27.0-32.0); Mean Corpuscular Volume 89.9 fL (81-99); Mean Platelet Vol. 10.8 fl (6.2-12.0); Platelet Count 235 K/mm3 (150-450); RBC Distribution Width CV 18.6 % (11.6-14.6); RBC Distribution Width SD 59.7 fl (35.1-43.9); Red Blood Count 3.67 M/mm3 (4.2-5.4); White Blood Count 13.2 K/mm3 (4.4-11.0)
[2025-03-02 07:57] VITALS: BP 116/82; PULSE 94; RESP 30; TEMP 37.7; O2SAT 96
[2025-03-02 08:10] LABS: Anion Gap 17 (5-15); BUN 33 mg/dL (4-19); Calcium,Total 8.2 mg/dL (7.6-11.0); Chloride 120 mmol/L (98-108); EST Glomerular Filtration Rate 54 (>60); Estimated Creatinine Clearance 34.32 ml/min (50-250); Glucose 252 mg/dL (70-99); Potassium 3.9 mmol/L (3.3-5.1); Sodium Level 153 mmol/L (133-145)
--- NOTE | 2025-03-02 09:55 | WOUNDNOTE ---
Pt and family meeting with Hospice later today. will hold off on dressing changes at this time d/t dressing changes being so painful. Nursing aware. will follow.
[2025-03-02 11:39] LABS: Bedside Glucose 236 mg/dL (74-106)
[2025-03-02 11:59] VITALS: BP 148/84; PULSE 100; RESP 28; TEMP 37.1; O2SAT 100
[2025-03-02 12:14] LABS: Bedside Glucose 229 mg/dL (74-106)
--- NOTE | 2025-03-02 14:10 | CASEMGMT ---
Social Work Hospice having a virtual meeting w/family at this time, meeting was set up for 1:30pm(SW was notified yesterday of the time, but not that the meeting was virtual). SW called hospice to inquire as to why the meeting was virtual rather than in person. SW informed this was because they were able to schedule the meeting sooner doing the meeting virtually. SW asked that in the future if they plan to do a virtual meeting, to let SW know as for this family, an in person meeting would have been better. SW will continue to follow, awaiting decision by family. Hospice is to call SW back after the meeting to let SW know what is decided. DAYANNA Almanza
--- NOTE | 2025-03-02 15:16 | DCINST_ITS ---
Discharge Instructions Diet Discharge Diet: No restrictions DC O2, CPAP, BIPAP needs Home O2 Discharge instructions: No Follow Up Care Test Results: Test results from this visit will be discussed in further detail at your follow- up appointment, if applicable. Discharge Plan Admission Admit Date/Time: 02/24/25 14:44 Primary Reason for Your Visit: ankle wound Attending Provider: Royce Arreola Primary Care Provider: Tiara Mcintyre NP Consulting Providers: Mark Awad; Naty Morales; Crispin Gramajo; Roshan Hwang; Roshan Chu; Ruddy Palm; Kary Garcia; Milena Otto; Elyse Wise; Leonie Quinones NP; Lauren Colon Discharge Orders/Prescriptions Prescriptions: Continued metoprolol tartrate 50 mg tablet 50 mg PO BID esomeprazole magnesium 40 mg capsule,delayed release(DR/EC) 40 mg PO DAILY dapagliflozin propanediol [Farxiga] 10 mg tablet 10 mg PO QAM Qty: 90 3RF Patient Comments: NOT SURE ABOUT THIS MEDICATION. furosemide 40 mg tablet 20 mg PO DAILY Patient Comments: NOT SURE ABOUT THIS MEDICATION. simvastatin 40 MG tablet 40 mg PO QHS alprazolam 0.5 mg tablet 0.5 mg PO QHS PRN (Reason: anxiety) cyanocobalamin (vitamin B-12) [Vitamin B-12] 1,000 mcg tablet 1,000 mcg PO DAILY nystatin [Nystop] 100,000 unit/gram powder 1 applic topical DAILY (DME) OneTouch Ultra Test Strip See Rx Instructions .Route Qty: 100 12RF Rx Instructions: 3 x a day for regualrting her BS Janumet 50-1,000 mg tablet 1 tab PO BIDCM Qty: 90 3RF Patient Comments: NOT SURE ABOUT THIS MEDICATION. Referrals / Follow Up: Tiara Mcintyre NP, INJECTION SPECIALIST-C [Primary Care Provider] - Disposition Disposition (needs filled in before D/C Order can be placed): Hospice in Medical Facility
--- NOTE | 2025-03-02 15:17 | DS.PCM_ITS ---
Providers Date of Admission: 02/24/25 Date of Discharge: 03/02/25 Primary Care Physician: ИВАН Montague Consultations 02/24/25 17:26 Consult: Onc/Wound/towel distributor Routine Comment: Reason for Consult:: Exposed right Achilles, follows at wound center Consult: Podiatry Routine Consulting Provider: Mark Awad Reason for Consult: wounds on feet, exposed achilles, sent from wound clinic EMERGENT Consult: No MD Notified: Yes Date Notified: 02/24/25 Time Notified: 18:09 Method of Notification: Text 02/25/25 07:17 Consult: Infectious Disease Routine Consulting Provider: Crispin Gramajo Reason for Consult: RLE cellulitis and exposed tendon EMERGENT Consult: No MD Notified: Yes Date Notified: 02/25/25 Time Notified: 07:17 Method of Notification: Text 02/25/25 15:29 Consult: Vascular Surgery Routine Consulting Provider: Roshan Hwang Reason for Consult: lower extremity PAD EMERGENT Consult: No MD Notified: Yes Date Notified: 02/25/25 Time Notified: 15:29 Method of Notification: Text 03/01/25 14:59 Consult: Hospice / Palliative Care Routine Consulting Provider: [facility] Reason for Consult: dementia, wounds EMERGENT Consult: No MD Notified: Yes Date Notified: 03/01/25 Time Notified: 15:00 Method of Notification: per social work Reason For Visit: EXPOSED ACHILLES TENDON Diagnosis Discharge Diagnosis (1) Encephalopathy: Status: Acute Code(s): G93.40 - Encephalopathy, unspecified (2) Ankle ulcer: Status: Acute Code(s): L97.309 - 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 Medications at Discharge Home Medications simvastatin 40 mg tablet 40 mg PO QHS CHOLESTROL 11/22/16 esomeprazole magnesium 40 mg capsule,delayed release 40 mg PO DAILY ACID REFLUX 05/05/24 metoprolol tartrate 50 mg tablet 50 mg PO BID BP 05/05/24 dapagliflozin propanediol 10 mg tablet (Farxiga) 10 mg PO QAM DIABETES #90 tabs 06/02/24 blood sugar diagnostic (Siverge NetworksTouch Ultra Test strips) #100 ea 06/09/24 furosemide 40 mg tablet 20 mg PO DAILY WATER PILL 09/08/24 sitagliptin phosphate 50 mg-metformin 1,000 mg tablet (Janumet) 1 tab PO BIDCM DIABETES #90 tabs 10/27/24 alprazolam 0.5 mg tablet 0.5 mg PO QHS PRN anxiety 02/24/25 cyanocobalamin (vitamin B-12) 1,000 mcg tablet (Vitamin B-12) 1,000 mcg PO DAILY SUPPLEMENT 02/24/25 nystatin 100,000 unit/gram topical powder (Nystop) 1 applic topical DAILY ANTIFUNGAL 02/24/25 Hospital Course Operations None Procedures EKG and - (CT brain, chest x-ray, ankle x-ray, venous Doppler study, ankle- brachial index) Summary of Care Provided Minutes Spent on Discharge: 35 Hospital Course: Patient is an 89-year-old female who presented [facility] ED on 02/24/25 with severe right ankle wound. Hospital course was complicated by severe agitation initially, followed by significant somnolence with no clear underlying cause that was suspected secondary to the patient actively dying. Hospice consulted and patient was discharged to inpatient hospice on 03/02. 1. Acute metabolic encephalopathy ? Patient A&O x 3 at baseline. Had significant agitation noted on 02/26 and was started on IM Haldol as needed. Required several doses of this over the course of 02/26, with last dose being at 2 AM on 02/27. CT head negative on admit. Lab workup benign. ABG on 03/01 unremarkable. Unfortunately, patient remained somnolent from 02/28 forward with no identifiable cause. She also developed significant abdominal breathing and her overall picture seemed to be most consistent with the active process of dying. Hospice was consulted and patient was ultimately discharged to inpatient hospice on 03/02. 2. Severe right ankle wound with exposed right Achilles tendon, chronic pressure wounds of bilateral ankles ? Podiatry, ID and vascular surgery followed. Wound cultures growing Pseudomonas and MSSA. Treated with IV vancomycin and Zosyn while inpatient. No further needs on discharge. 3. Hypokalemia ? Repleted as needed. 4. Intertrigo ? Continue nystatin powder as needed. 5. Hypernatremia ? Sodium 153 on discharge, presumed secondary to dehydration from no p.o. intake for several days. Chronic medical conditions: ? Type 2 diabetes mellitus: Treated with sliding scale insulin every 6 hours as needed while inpatient. ? GERD: Home meds discontinued. ? Hypertension, hyperlipidemia: Home meds discontinued. Total clinical time spent by myself addressing the patient's medical issues, reviewing all the data, and collaborating with patient's care team: 35 minutes. Physical Exam Const no apparent distress Constitutional Narrative: Elderly female, somnolent, small spontaneous movements of arms and legs noted but patient appears comfortable and not agitated. Not responding to commands but does grimace to pain stimulation. General Appearance: comfortable Orientation / Consciousness: lethargic HEENT normocephalic, head/scalp atraumatic and nasal mucous membranes and turbinates normal Neck full ROM Chest inspection of chest normal Resp Resp Narrative: Abdominal breathing noted with respiration rate in the mid to high 20s. Good oxygen saturations on 2 L nasal cannula and good air movement throughout bilaterally, no wheezing or crackles noted. Cardio regular rate, regular rhythm, no murmurs and peripheral pulses 2+ throughout GI normal to inspection, nondistended, normoactive bowel sounds, soft to palpation, non-tender and non-distended Back/Spine normal ROM Extremity Extremity Narrative: Bilateral ankle wounds noted. Weight / BMI Weight Weight: 63.7 kg Body Mass Index (BMI) 23.3 ABG / Lab / Microbiology Data 03/02/25 06:00 03/02/25 06:00 Laboratory: Laboratory Results - last 24 hr 03/01/25 17:07: POC Glucose 164 H 03/01/25 22:45: POC Glucose 197 H 03/02/25 05:53: POC Glucose 236 H 03/02/25 06:00: WBC 13.2 H, RBC 3.67 L, Hgb 10.1 L, Hct 33.0 L, MCV 89.9, MCH 27.5, MCHC 30.6 L, RDW Std Deviation 59.7 H, RDW Coeff of Taty 18.6 H, Plt Count 235, MPV 10.8, Sodium 153 H, Potassium 3.9, Chloride 120 H, Carbon Dioxide 15.0 L, Anion Gap 17 H, BUN 33 H, Creatinine 1.00, Estim Creat Clear Calc 34.32 L, E st GFR (MDRD) Non-Af 54 L, BUN/Creatinine Ratio 33.0 H, Glucose 252 H, Calcium 8.2 03/02/25 11:47: POC Glucose 229 H Microbiology: Microbiology 02/24/25 12:20 Blood Culture (Wb) - Right Forearm Blood Culture - Final No growth in 5 days. 02/24/25 12:20 Blood Culture (Wb) - Left Wrist Blood Culture - Final No growth in 5 days. 02/24/25 12:30 Wound Abcess - Ankle Gram Stain - Final 02/24/25 12:30 Wound Abcess - Ankle Wound Culture - Final Pseudomonas aeruginosa#2 Pseudomonas aeruginosa Staphylococcus aureus Gram positive ela D/C Instructions DC O2, CPAP, BIPAP Needs Home O2 Discharge instructions: No Meaningful Use Info Meaningful Use Meaningful Use Diagnoses (Choose all that apply): None applicable Ischemic Stroke Statin Dosing Therapy Reference: STATIN DOSE THERAPY REFERENCE: * Patients > 75 years receive moderate or high dose statin therapy. * Patients 75 years or YOUNGER should receive HIGH intensity statin dose unless contraindicated. You will be required to document reason for non-treatment if statin daily dose does not meet guidelines. HIGH DOSE STATIN THERAPY DAILY Atorvastatin > than or = to 40 mg Rosuvastatin > than or = to 20 mg Amlodipine + Atorvastatin > than or = to 2.5/40 mg Ezetimibe + Simvastatin 10/80 mg Simvastatin 80mg Discharge Plan Admission Admit Date/Time: 02/24/25 14:44 Primary Reason for Your Visit: ankle wound Attending Provider: Royce Arreola Primary Care Provider: Tiara Mcintyre NP Consulting Providers: Mark Awad; Naty Morales; Crispin Gramajo; Roshan Hwang; Roshan Chu; Ruddy Palm; Kary Garcia; Milena Otto; Elyse Wise; Leonie Quinones CHARGE MASTER SPECIALIST; Lauren Colon Discharge Orders/Prescriptions Prescriptions: Continued metoprolol tartrate 50 mg tablet 50 mg PO BID esomeprazole magnesium 40 mg capsule,delayed release(DR/EC) 40 mg PO DAILY dapagliflozin propanediol [Farxiga] 10 mg tablet 10 mg PO QAM Qty: 90 3RF Patient Comments: NOT SURE ABOUT THIS MEDICATION. furosemide 40 mg tablet 20 mg PO DAILY Patient Comments: NOT SURE ABOUT THIS MEDICATION. simvastatin 40 MG tablet 40 mg PO QHS alprazolam 0.5 mg tablet 0.5 mg PO QHS PRN (Reason: anxiety) cyanocobalamin (vitamin B-12) [Vitamin B-12] 1,000 mcg tablet 1,000 mcg PO DAILY nystatin [Nystop] 100,000 unit/gram powder 1 applic topical DAILY (DME) OneTouch Ultra Test Strip See Rx Instructions .Route Qty: 100 12RF Rx Instructions: 3 x a day for regualrting her BS Janumet 50-1,000 mg tablet 1 tab PO BIDCM Qty: 90 3RF Patient Comments: NOT SURE ABOUT THIS MEDICATION. Referrals / Follow Up: Tiara Mcintyre CHARGE MASTER SPECIALIST, CHARGE MASTER SPECIALIST-C [Primary Care Provider] - Disposition Disposition (needs filled in before D/C Order can be placed): Hospice in Medical Facility Charges/Coding Visit Charges Inpatient E&M: 56642 Disch Hosp >30min
--- NOTE | 2025-03-02 15:26 | CASEMGMT ---
Addendum entered by Tania Blancas 03/02/25 15:41: Social Work Itz from hospice called and asked for med list, SW faxed discharge summary w/med list included to hospice. DAYANNA Almanza Original Note: Social Work Pt was accepted into the inpt hospice unit, Itz from hospice will call SW or the floor back with time of pickup. SW asked Itz to call the floor, as SW's phone is only intermittently working. SW let physican and pt's RN know the plan. JAKI AlmanzaS
[2025-03-02 17:55] VITALS: BP 151/86; PULSE 84; RESP 28; TEMP 36.6; O2SAT 100
[2025-03-02 18:07] LABS: Bedside Glucose 195 mg/dL (74-106)
[2025-03-23 13:18] LABS: Pathologist Review Reviewed
== END 2025-03-02 20:40 | disposition hospice, inpatient (51) | DRG 637 ==
LOC: ED 14:46 → MS3 02-25 06:53
PROVIDERS: Admitting Provider Internal Medicine; Emergency Provider Emergency Medicine; PCP Nurse Practitioner; Referring Provider Emergency Medicine; Visit Provider Hospitalist
DX: E11.621 Type 2 diabetes mellitus with foot ulcer (principal); G93.41 Metabolic encephalopathy; E87.0 Hyperosmolality and hypernatremia; L03.115 Cellulitis of right lower limb; L97.313 Non-pressure chronic ulcer of right ankle with necrosis of muscle; L97.213 Non-pressure chronic ulcer of right calf with necrosis of muscle; L97.322 Non-pressure chronic ulcer of left ankle with fat layer exposed; L97.312 Non-pressure chronic ulcer of right ankle with fat layer exposed; L97.823 Non-pressure chronic ulcer of other part of left lower leg with necrosis of muscle; L97.812 Non-pressure chronic ulcer of other part of right lower leg with fat layer exposed; L03.116 Cellulitis of left lower limb; L89.519 Pressure ulcer of right ankle, unspecified stage; B96.5 Pseudomonas (aeruginosa) (mallei) (pseudomallei) as the cause of diseases classified elsewhere; E11.51 Type 2 diabetes mellitus with diabetic peripheral angiopathy without gangrene; B95.61 Methicillin susceptible Staphylococcus aureus infection as the cause of diseases classified elsewhere; Z66 Do not resuscitate; F03.A0 Unspecified dementia, mild, without behavioral disturbance, psychotic disturbance, mood disturbance, and anxiety; I70.0 Atherosclerosis of aorta; I10 Essential (primary) hypertension; Z95.2 Presence of prosthetic heart valve; I48.91 Unspecified atrial fibrillation; L89.529 Pressure ulcer of left ankle, unspecified stage; E11.65 Type 2 diabetes mellitus with hyperglycemia; M79.672 Pain in left foot; E87.6 Hypokalemia; M79.671 Pain in right foot; K21.9 Gastro-esophageal reflux disease without esophagitis; E78.5 Hyperlipidemia, unspecified; L30.4 Erythema intertrigo; T14.8XXA Other injury of unspecified body region, initial encounter; R60.0 Localized edema; Z79.84 Long term (current) use of oral hypoglycemic drugs; Z87.891 Personal history of nicotine dependence; R45.1 Restlessness and agitation; Z87.81 Personal history of (healed) traumatic fracture; Z99.89 Dependence on other enabling machines and devices; D36.11 Benign neoplasm of peripheral nerves and autonomic nervous system of face, head, and neck; Z79.02 Long term (current) use of antithrombotics/antiplatelets; Z79.899 Other long term (current) drug therapy; Z90.49 Acquired absence of other specified parts of digestive tract; Z98.890 Other specified postprocedural states; L08.9 Local infection of the skin and subcutaneous tissue, unspecified
CPT/HCPCS: 36415; 36600; 51702; 70450; 71045; 73610; 80048; 80053; 80202; 81001; 82140; 82803; 82962; 83605; 83735; 85025; 85027; 85610; 85730; 87040; 87070; 87077; 87184; 87186; 87205; 92610; 93005; 93922; 93970; 99214; 99285; A4216; G0463; J1938; J2405